=== PATIENT | female | born 1960 | race Caucasian/White ===

== ENCOUNTER → 2016-10-15 | Outpatient (CLI) | payer OTHER ==
[~2016-10-15] MED LIST: ALL180 PO; BUPR150T7 PO; CALC500T83 PO; CARB200T PO; IBUP-1050 PO; LEVO150T9 PO; PARO1TAB29 PO; SIMV20TA5 PO; TGR200 PO
--- NOTE | 2016-10-16 08:15 | MAMMOGRAPHY REPORT ---
BILATERAL DIGITAL SCREENING MAMMOGRAM TOMOSYNTHESIS WITH CAD: 10/15/2016 CLINICAL HISTORY: Routine screening. Patient has no complaints. TECHNIQUE: Breast tomosynthesis in addition to standard 2D mammography was performed. Current study was also evaluated with a Computer Aided Detection (CAD) system. COMPARISON: Comparison is made to exams dated: 10/15/2015 mammogram, 10/10/2014 mammogram, 04/13/2013 ma mmogram, 04/12/2012 mammogram, 04/09/2011 mammogram, and 04/08/2010 mammogram - [facility] enter. BREAST COMPOSITION: There are scattered areas of fibroglandular density in both breasts. FINDINGS: The parenchymal pattern is unchanged. No developing mass, architectural distortion or clu ster of suspicious microcalcifications is seen in either breast. IMPRESSION: ACR BI-RADS CATEGORY 2: BENIGN There is no mammographic evidence of malignancy. A 1 year screening mammogram is recommended. The p atient will receive written notification of the results. Approximately 10% of breast cancers are not detected with mammography. A negative mammographic repor t should not delay biopsy if a clinically suggestive mass is present. Tara Ashton M.D. ay/:10/15/2016 17:18:11 Bus Info Consultant: Barbra DIA(Nathan)(Juan J), [facility] letter sent: Normal 1/2 BI-RADS Code: ACR BI-RADS Category 2: Benign
== END | disposition home or self-care (01) ==
LOC: C.MAMM 15:42
PROVIDERS: ATTEND Family Medicine
DX: Z12.31 Encounter for screening mammogram for malignant neoplasm of breast (principal)

== ENCOUNTER → 2017-10-05 | Outpatient (CLI) | payer OTHER ==
[2017-10-05 17:31] LABS: ALBUMIN 3.8 gm/dl (3.4-5.0); ALT/SGPT 23 U/L (12-78); AST/SGOT 17 U/L (15-37); BLOOD UREA NITROGEN 9 mg/dl (7-18); CARBON DIOXIDE 30 mmol/L (21-32); CREATININE 0.81 mg/dl (0.60-1.20); GLUCOSE 89 mg/dl (70-99); POTASSIUM 3.7 mmol/L (3.5-5.1); SODIUM 135 mmol/L (136-145)
[2017-10-05 17:42] LABS: ALKALINE PHOSPHATASE 107 U/L (45-117); TOTAL PROTEIN 7.3 gm/dl (6.4-8.2)
[2017-10-05 17:57] LABS: T3 FREE 2.37 pg/ml (2.30-4.20)
== END | disposition home or self-care (01) ==
LOC: C.LAB1850 16:36
PROVIDERS: ATTEND Internal Medicine Endocrinology, Diabetes & Metabolism
DX: M81.0 Age-related osteoporosis without current pathological fracture (principal); R94.6 Abnormal results of thyroid function studies; K90.0 Celiac disease

== ENCOUNTER → 2017-10-19 | Outpatient (CLI) | payer OTHER ==
--- NOTE | 2017-10-20 15:05 | MAMMOGRAPHY REPORT ---
BILATERAL DIGITAL SCREENING MAMMOGRAM TOMOSYNTHESIS WITH CAD: 10/19/2017 CLINICAL HISTORY: Routine screening. Patient has no complaints. TECHNIQUE: Breast tomosynthesis in addition to standard 2D mammography was performed. Current study was also evaluated with a Computer Aided Detection (CAD) system. COMPARISON: Comparison is made to exams dated: 10/15/2016 mammogram, 10/15/2015 mammogram, 10/10/2014 karis mogram, 04/13/2013 mammogram, 04/12/2012 mammogram, and 04/14/2011 mammogram - [facility] ter. BREAST COMPOSITION: There are scattered areas of fibroglandular density in both breasts. FINDINGS: The parenchymal pattern is unchanged. No developing mass, architectural distortion or clus ter of suspicious microcalcifications is seen in either breast. IMPRESSION: ACR BI-RADS CATEGORY 2: BENIGN There is no mammographic evidence of malignancy. A 1 year screening mammogram is recommended. The pa tient will receive written notification of the results. Approximately 10% of breast cancers are not detected with mammography. A negative mammographic report should not delay biopsy if a clinically suggestive mass is present. Tara Ashton M.D. ay/:10/19/2017 16:17:34 Underwriting Technician: Lucy DIA(Nathan)(Juan J)(BD), [facility] letter sent: Normal 1/2 BI-RADS Code: ACR BI-RADS Category 2: Benign
== END | disposition home or self-care (01) ==
LOC: C.MAMM 15:52
PROVIDERS: ATTEND Family Medicine
DX: Z12.31 Encounter for screening mammogram for malignant neoplasm of breast (principal)

== ENCOUNTER 2022-03-14 06:19 | Inpatient (IN) ==
[2022-03-14] MEDS ORDERED: FAMOTIDINE 20MG IV PUSH 20 MG/5 ML SYR IV STA (06:48)
[2022-03-14] MEDS ORDERED: SODIUM CHLORIDE 0.9% 1000ML 1,000 ML IV ONE (06:48)
[2022-03-14] MEDS ORDERED: ONDANSETRON INJ 2 MG/ML 2 ML VIAL IV STA (06:48)
[2022-03-14 07:20] LABS: Basophils # (auto) 0.03 K/uL (0-0.2); Basophils % (auto) 0.4 %; Eosinophils # (auto) 0.07 K/uL (0-0.50); Eosinophils % (auto) 0.8 %; Hematocrit (blood only) 37.9 % (34.1-44.9); Hemoglobin 14.1 g/dl (12.0-16.0); Immature Granulocytes # (auto) 0.03 K/uL (0.00-0.02); Immature Granulocytes % (auto) 0.4 %; Lymphocytes # (auto) 1.78 K/uL (1.2-3.4); Lymphocytes % (auto) 21.6 %; Mean Corpuscular Hemoglobin 33.7 pg (25.0-34.0); Mean Corpuscular Hgb Conc 37.2 g/dL (32.0-36.0); Mean Corpuscular Volume 90.5 fL (80.0-100.0); Mean Platelet Volume 9.3 fL (9.4-12.3); Monocytes # (auto) 0.72 K/uL (0.24-0.82); Monocytes % (auto) 8.7 %; Neutrophils # (auto) 5.61 K/uL (1.4-6.5); Neutrophils % (auto) 68.1 %; Platelet Count 319 K/uL (130-400); RDW Coefficient of Variation 11.7 % (11.5-14.5); RDW Standard Deviation 38.5 fL (36.4-46.3); Red Blood Count 4.19 M/uL (3.93-5.22); White Blood Count 8.24 K/ul (4.8-10.8)
[2022-03-14 07:41] LABS: Albumin Level 4.3 gm/dl (3.4-5.0); BUN Creatinine Ratio 4.3 (10-20); Bilirubin Direct 0.1 mg/dl (0-0.2); Bilirubin,Total 0.5 mg/dl (0.2-1.0); Est GFR (African American) 108.1 ml/min; Est GFR (Non-African American) 93.3 ml/min; Globulin 2.2 gm/dl (2.5-4.0); Magnesium 1.7 mg/dl (1.7-2.4); Phosphorus 2.4 mg/dl (2.5-4.9); Potassium 2.8 mmol/L (3.5-5.1); Total Protein 6.5 gm/dl (6.0-8.3)
[2022-03-14] MEDS: POTASSIUM CHLORIDE / WTR 10 MEQ/100 ML PLCT IV SCH ×4 (09:08→19:47)
--- NOTE | 2022-03-14 09:12 | XRay Report ---
XR chest 1V portable HISTORY: feverish COMPARISON: Chest 01/23/2022. FINDINGS: The lungs are clear. Cardiac silhouette is normal in size. No pleural effusions. No pneumot horax. Old, healed right lateral rib fractures. IMPRESSION: No acute process. ACT 112: Negative or not required by law. Electronically signed by: Deepak Fraser M.D. 03/14/2022 9:11 AM
--- NOTE | 2022-03-14 09:15 | Emergency Department Note ---
Impression & Plan Hyponatremia, Hypokalemia, History of COVID-19, Weakness, Nausea ED Provider Note NAME: JOSEFA BAILEY AGE: 61 SEX: F ARRIVES VIA: Walk-In INFORMANT: Patient ED PROVIDER(S): Valerio Hair MD CHIEF COMPLAINT: Nausea, weakness PLAN: Disposition: Admit MEDICAL DECISION MAKING: The patient is a pleasant 61-year-old woman with a past medical history of daily smoking, COVID-19 infection in January 2022, GERD, hyperlipidemia presents to the emergency department accompanied by her for evaluation of generalized weakness, body aches and nausea that she reports has been ongoing since her COVID-19 diagnosis in January. She reports she had a telehealth with her primary care doctor last week and was given Augmentin for suspicion of sinus infection related to her symptoms. She reports no improvement since starting this. She denies any recent fevers. She reports some sinus congestion but denies cough. She has any chest pain or shortness of breath. She reports she has had poor oral intake and not eating and drinking much at all. On arrival the patient is fatigued appearing but no acute distress, afebrile with stable vital signs. She appears clinically dry. She has no focal neurologic deficits. CXR negative for acute cardiopulmonary process. WBC, H/H and platelets within normal limits. Chemistry without metabolic acidosis. Sodium is low at 124 with glucose of 123. Potassium 2.8 with repletion provided. LFTs with AST 61 and otherwise unremarkable. Lipase within normal limits. Procalcitonin is undetectable. TSH within normal limits. Findings were reviewed with the patient and given her symptomatic hyponatremia Karen kalemia she did agree with plan for admission for further management. Case was discussed with Gail Morales [facility] PAC, with Dr. Chaidez, [facility] hospitalist who will evaluate the patient for admission. Triage Nursing notes reviewed and agree them. Prior medical records reviewed Vital Signs: reviewed and remarkable for no significant abnormalities Differential diagnosis: Infection, dehydration, metabolic abnormality, hypo/hyperglycemia, electrolyte disturbance, anemia, hypoxia, cardiac sources, intracerebral event, toxicologic, neurologic, as well as other pathologies. ER treatment provided: See below. Diagnostics interpreted by me: Cardiac Monitoring: An order for continuous cardiac monitoring was placed and demonstrated normal sinus rhythm, 72 bpm, no ectopy Laboratory studies: See below Imaging studies: See below Consultation(s): Case was discussed with Gail Morales, [facility] PAC, with Dr. Chaidez, [facility] hospitalist. HPI: The patient is a pleasant 61-year-old woman with a past medical history of daily smoking, COVID-19 infection in January 2022, GERD, hyperlipidemia presents to the emergency department accompanied by her for evaluation of generalized weakness, body aches and nausea that she reports has been ongoing since her COVID-19 diagnosis in January. She reports she had a telehealth with her primary care doctor last week and was given Augmentin for suspicion of sinus infection related to her symptoms. She reports no improvement since starting this. She denies any recent fevers. She reports some sinus congestion but denies cough. She has any chest pain or shortness of breath. She reports she has had poor oral intake and not eating and drinking much at all. ROS: See above HPI for pertinent positives & negatives. A total of 10 systems reviewed and were otherwise negative. VITALS:See Below PHYSICAL EXAMINATION: GENERAL: Awake, alert, fatigued-appearing, in no distress HENT: Normocephalic, atraumatic. Boggy nasal turbinates. Oropharynx with dry mucous membranes and otherwise unremarkable. EYES: Normal conjunctiva. Sclera non-icteric. NECK: Supple. No nuchal rigidity. FROM. No JVD. RESPIRATORY: Clear to auscultation. CARDIAC: Regular rate, normal rhythm. Extremities warm and well perfused. Pulses equal. ABDOMEN: Soft, non-distended. No tenderness to palpation. No rebound or gua rding. No masses. RECTAL: Deferred. MUSCULOSKELETAL: Chest examination reveals no tenderness. The back is symmetrical on inspection without obvious abnormality. There is no CVA tenderness to palpation. No joint edema. LOWER EXTREMITIES: Calves are equal size bilaterally and non-tender. No edema. No discoloration. NEURO: Normal sensorium. No sensory or motor deficits noted. SKIN: No rash or jaundice noted. Valerio Hair MD Past Med/Surg History Medical History Adult celiac disease Bipolar disorder Celiac disease GERD (gastroesophageal reflux disease) GERD (gastroesophageal reflux disease) HLD (hyperlipidemia) Hypokalemia Hyponatremia Hypothyroidism Osteoporosis Secondary hyperparathyroidism Vitamin B12 deficiency Vitamin D deficiency Weakness Weakness Family History Other Family history non-contributory Social History Smoking Status: Current every day smoker Tobacco Type: Cigarettes Second Hand Exposure: No; Do You Dip or Chew Tobacco: No; Tobacco Cessation Education Requested by Patient: No Hx Alcohol Use: No Hx Substance Use: No Preferred Language: Egyptian Communication Ability: Effective Network Relations Consultant Required: No Beliefs That Will Affect Care: None Current Living Situation: Spouse Other Information That Helps Us Care for You: No Feels Safe at Home: Yes Safety Concerns: Feels Safe At This Time Assistive Devices: Denture - Upper and Glasses Allergies Allergies Allergy/AdvReac Type Severity Reaction Status Date / Time metronidazole Allergy Intermediate RASH Verified 01/18/21 22:09 gluten Allergy Unknown Verified 01/18/21 22:09 Home Meds Home Medications Medication Instructions Recorded Confirmed carbamazepine 200 mg tablet 200 mg PO QAM 03/07/19 03/14/22 fexofenadine 180 mg tablet 180 mg PO DAILY 03/07/19 03/14/22 fluticasone propionate 50 2 sprays intranasal BID PRN 03/07/19 03/14/22 mcg/actuation nasal allergies spray,suspension paroxetine HCl 40 mg tablet 40 mg PO DAILY 03/07/19 03/14/22 simvastatin 20 mg tablet 20 mg PO HS #30 tabs 03/07/19 03/14/22 bupropion HCl 300 mg 24 hr tablet, 300 mg PO DAILY 01/18/21 03/14/22 extended release carbamazepine 200 mg tablet 300 mg PO QPM 01/18/21 03/14/22 levothyroxine 125 mcg tablet 150 mcg PO DAILY 01/18/21 03/14/22 pantoprazole 40 mg tablet,delayed 40 mg PO DAILY 01/18/21 03/14/22 release paroxetine HCl 20 mg tablet 20 mg PO DAILY 01/18/21 03/14/22 Results & Data (ED) Vital Signs Vital Signs - 24 hr 03/14/22 06:30 03/14/22 07:10 03/14/22 09:17 Temperature 36.7 C Temperature Source Temporal Artery Scan Pulse Rate [Finger] 72 78 Respiratory Rate 18 18 18 Respiratory Effort / Characteristics Non-Labored Spontaneous Non-Labored Spontaneous Non-Labored Respiratory Depth Normal Normal Normal Blood Pressure 164/85 H Blood Pressure [Left Arm] 124/84 126/79 Blood Pressure Mean 111 Blood Pressure Mean [Left Arm] 97 94 Pulse Oximetry 100 100 100 Oxygen Delivery Method Room Air Room Air Room Air Sepsis Recent Fever Within 48 Hours No Sepsis New/Unexplained Change in Mental Status N/A Sepsis Action Taken by Nursing No Action Required 03/14/22 10:10 Temperature Temperature Source Pulse Rate [Finger] 71 Respiratory Rate 16 Respiratory Effort / Characteristics Respiratory Depth Normal Blood Pressure Blood Pressure [Left Arm] 121/82 Blood Pressure Mean Blood Pressure Mean [Left Arm] 95 Pulse Oximetry 99 Oxygen Delivery Method Room Air Sepsis Recent Fever Within 48 Hours Sepsis New/Unexplained Change in Mental Status Sepsis Action Taken by Nursing Laboratory Data Attestation: I reviewed the patient's lab results. Result diagrams: 03/14/22 07:03 03/14/22 20:16 Lab Results 03/14/22 03/14/22 03/14/22 Range/Units 07:03 07:03 07:03 WBC 8.24 (4.8-10.8) K/ul RBC 4.19 (3.93-5.22) M/uL Hgb 14.1 (12.0-16.0) g/dl Hct 37.9 (34.1-44.9) % MCV 90.5 (80.0-100.0) fL MCH 33.7 (25.0-34.0) pg MCHC 37.2 H (32.0-36.0) g/dL RDW Std Deviation 38.5 (36.4-46.3) fL RDW Coeff of Karla 11.7 (11.5-14.5) % Plt Count 319 (130-400) K/uL MPV 9.3 L (9.4-12.3) fL Immature Gran % (Auto) 0.4 % Neut % (Auto) 68.1 % Lymph % (Auto) 21.6 % [place] % (Auto) 8.7 % Eos % (Auto) 0.8 % Baso % (Auto) 0.4 % Neut # (Auto) 5.61 (1.4-6.5) K/uL Lymph # (Auto) 1.78 (1.2-3.4) K/uL [place] # (Auto) 0.72 (0.24-0.82) K/uL Eos # (Auto) 0.07 (0-0.50) K/uL Baso # (Auto) 0.03 (0-0.2) K/uL Immature Gran # (Auto) 0.03 H (0.00-0.02) K/uL Sodium 124 L (136-145) mmol/L Potassium 2.8 L (3.5-5.1) mmol/L Chloride 88 L (98-107) mmol/L Carbon Dioxide 25 (21-32) mmol/L Anion Gap 11 (3-11) BUN 3 L (6-23) mg/dl Creatinine 0.69 (0.6-1.2) mg/dl Est Cr Clr Drug Dosing 82.0 ml/min Est GFR ( Amer) 108.1 ml/min Est GFR (Non-Af Amer) 93.3 ml/min BUN/Creatinine Ratio 4.3 L (10-20) Glucose 123 H (70-99(Fasting)) mg/dl Osmolality (280-300) mOsm/kg Calcium 9.0 (8.5-10.1) mg/dl Phosphorus 2.4 L (2.5-4.9) mg/dl Magnesium 1.7 (1.7-2.4) mg/dl Total Bilirubin 0.5 (0.2-1.0) mg/dl Direct Bilirubin 0.1 (0-0.2) mg/dl AST 36 (13-39) U/L ALT 61 H (7-52) U/L Alkaline Phosphatase 75 (34-104) U/L Total Protein 6.5 (6.0-8.3) gm/dl Albumin 4.3 (3.4-5.0) gm/dl Globulin 2.2 L (2.5-4.0) gm/dl Albumin/Globulin Ratio 2.0 (0.9-2) Lipase 18 (11-82) U/L Procalcitonin (0-0.5) ng/ml TSH 2.266 (0.300-4.500) uIu/ml Urine Osmolality (500-800) mOsm/kg Ur Random Sodium mmol/L 03/14/22 03/14/22 03/14/22 Range/Units 07:03 07:03 09:16 WBC (4.8-10.8) K/ul RBC (3.93-5.22) M/uL Hgb (12.0-16.0) g/dl Hct (34.1-44.9) % MCV (80.0-100.0) fL MCH (25.0-34.0) pg MCHC (32.0-36.0) g/dL RDW Std Deviation (36.4-46.3) fL RDW Coeff of Karla (11.5-14.5) % Plt Count (130-400) K/uL MPV (9.4-12.3) fL Immature Gran % (Auto) % Neut % (Auto) % Lymph % (Auto) % [place] % (Auto) % Eos % (Auto) % Baso % (Auto) % Neut # (Auto) (1.4-6.5) K/uL Lymph # (Auto) (1.2-3.4) K/uL [place] # (Auto) (0.24-0.82) K/uL Eos # (Auto) (0-0.50) K/uL Baso # (Auto) (0-0.2) K/uL Immature Gran # (Auto) (0.00-0.02) K/uL Sodium (136-145) mmol/L Potassium (3.5-5.1) mmol/L Chloride (98-107) mmol/L Carbon Dioxide (21-32) mmol/L Anion Gap (3-11) BUN (6-23) mg/dl Creatinine (0.6-1.2) mg/dl Est Cr Clr Drug Dosing ml/min Est GFR ( Amer) ml/min Est GFR (Non-Af Amer) ml/min BUN/Creatinine Ratio (10-20) Glucose (70-99(Fasting)) mg/dl Osmolality 256 L (280-300) mOsm/kg Calcium (8.5-10.1) mg/dl Phosphorus (2.5-4.9) mg/dl Magnesium (1.7-2.4) mg/dl Total Bilirubin (0.2-1.0) mg/dl Direct Bilirubin (0-0.2) mg/dl AST (13-39) U/L ALT (7-52) U/L Alkaline Phosphatase (34-104) U/L Total Protein (6.0-8.3) gm/dl Albumin (3.4-5.0) gm/dl Globulin (2.5-4.0) gm/dl Albumin/Globulin Ratio (0.9-2) Lipase (11-82) U/L Procalcitonin < 0.05 (0-0.5) ng/ml TSH (0.300-4.500) uIu/ml Urine Osmolality 49 L (500-800) mOsm/kg Ur Random Sodium mmol/L 03/14/22 Range/Units 09:16 WBC (4.8-10.8) K/ul RBC (3.93-5.22) M/uL Hgb (12.0-16.0) g/dl Hct (34.1-44.9) % MCV (80.0-100.0) fL MCH (25.0-34.0) pg MCHC (32.0-36.0) g/dL RDW Std Deviation (36.4-46.3) fL RDW Coeff of Karla (11.5-14.5) % Plt Count (130-400) K/uL MPV (9.4-12.3) fL Immature Gran % (Auto) % Neut % (Auto) % Lymph % (Auto) % [place] % (Auto) % Eos % (Auto) % Baso % (Auto) % Neut # (Auto) (1.4-6.5) K/uL Lymph # (Auto) (1.2-3.4) K/uL [place] # (Auto) (0.24-0.82) K/uL Eos # (Auto) (0-0.50) K/uL Baso # (Auto) (0-0.2) K/uL Immature Gran # (Auto) (0.00-0.02) K/uL Sodium (136-145) mmol/L Potassium (3.5-5.1) mmol/L Chloride (98-107) mmol/L Carbon Dioxide (21-32) mmol/L Anion Gap (3-11) BUN (6-23) mg/dl Creatinine (0.6-1.2) mg/dl Est Cr Clr Drug Dosing ml/min Est GFR ( Amer) ml/min Est GFR (Non-Af Amer) ml/min BUN/Creatinine Ratio (10-20) Glucose (70-99(Fasting)) mg/dl Osmolality (280-300) mOsm/kg Calcium (8.5-10.1) mg/dl Phosphorus (2.5-4.9) mg/dl Magnesium (1.7-2.4) mg/dl Total Bilirubin (0.2-1.0) mg/dl Direct Bilirubin (0-0.2) mg/dl AST (13-39) U/L ALT (7-52) U/L Alkaline Phosphatase (34-104) U/L Total Protein (6.0-8.3) gm/dl Albumin (3.4-5.0) gm/dl Globulin (2.5-4.0) gm/dl Albumin/Globulin Ratio (0.9-2) Lipase (11-82) U/L Procalcitonin (0-0.5) ng/ml TSH (0.300-4.500) uIu/ml Urine Osmolality (500-800) mOsm/kg Ur Random Sodium 13 mmol/L Administered Medications Al Hydrox/Mg Hydrox/Simethicone (Aluminum/Magnesium Susp 30 Ml Udc) 15 ml PO Q4H PRN PRN Reason: Dyspepsia Stop: 04/13/22 14:32 Last Admin: 03/14/22 17:44 Dose: 15 ml Documented By: EDD Carbamazepine (Carbamazepine 200 Mg Tablet) 300 mg PO QPM JASMYN Stop: 04/13/22 20:59 Last Admin: 03/14/22 20:55 Dose: 300 mg Documented By: LAT Enoxaparin Sodium (Enoxaparin Inj 40 Mg/0.4 Ml Syr) 40 mg SQ QPM JASMYN Stop: 04/13/22 20:59 Last Admin: 03/14/22 20:53 Dose: 40 mg Documented By: LAT Ondansetron HCl (Ondansetron Inj 2 Mg/Ml 2 Ml Vial) 4 mg IV Q6H PRN PRN Reason: Nausea Stop: 04/13/22 14:32 Last Admin: 03/14/22 15:43 Dose: 4 mg Documented By: EDD Simvastatin (Simvastatin 20 Mg Tab) 20 mg PO HS JASMYN Stop: 04/13/22 20:59 Last Admin: 03/14/22 20:54 Dose: 20 mg Documented By: LAT Discontinued Medications Sodium Chloride (Nss 1000ml) 1,000 mls @ 999 mls/hr IV .Q1H1M ONE Stop: 03/14/22 07:48 Last Infusion: 03/14/22 08:12 Dose: 0 mls/hr Documented By: Admin: 03/14/22 07:03 Dose: 999 mls/hr Documented By: NILTON Famotidine (Pepcid 20mg Iv Push) 20 mg in 5 mls @ 2.5 mls/min IV NOW STA Stop: 03/14/22 06:49 Last Admin: 03/14/22 07:03 Dose: 2.5 mls/min Documented By: NILTON Potassium Chloride (K Jay / Wtr) 10 meq in 100 mls @ 100 mls/hr IV Q1H JASMYN; Protocol Stop: 03/14/22 10:59 Last Infusion: 03/14/22 11:20 Dose: 0 mls/hr Documented By: Admin: 03/14/22 10:10 Dose: 100 mls/hr Documented By: Infusion: 03/14/22 10:08 Dose: 100 mls/hr Documented By: Admin: 03/14/22 09:08 Dose: 100 mls/hr Documented By: NILTON Magnesium Sulfate/Dextrose (Magnesium Sulfate / D5w) 1 gm in 100 mls @ 50 mls/hr IV ONE ONE Stop: 03/14/22 16:32 Last Infusion: 03/14/22 17:46 Dose: 0 mls/hr Documented By: Admin: 03/14/22 15:42 Dose: 50 mls/hr Documented By: EDD Potassium Chloride (K Jay / Wtr) 10 meq in 100 mls @ 100 mls/hr IV ONE ONE Stop: 03/14/22 15:32 Last Infusion: 03/14/22 17:46 Dose: 0 mls/hr Documented By: Admin: 03/14/22 15:41 Dose: 100 mls/hr Documented By: EDD Potassium Chloride (K Jay / Wtr) 10 meq in 100 mls @ 100 mls/hr IV Q1H JASMYN Stop: 03/14/22 20:14 Last Infusion: 03/14/22 20:58 Dose: 0 mls/hr Documented By: Admin: 03/14/22 19:47 Dose: 100 mls/hr Documented By: Infusion: 03/14/22 18:45 Dose: 100 mls/hr Documented By: Admin: 03/14/22 17:45 Dose: 100 mls/hr Documented By: Infusion: 03/14/22 17:45 Dose: 100 mls/hr Documented By: Admin: 03/14/22 17:45 Dose: 100 mls/hr Documented By: EDD Ondansetron HCl (Ondansetron Inj 2 Mg/Ml 2 Ml Vial) 4 mg IV NOW STA Stop: 03/14/22 06:49 Last Admin: 03/14/22 07:03 Dose: 4 mg Documented By: NILTON Potassium Chloride (Potassium Chloride Crtab 20 Meq Tabcr) 40 meq PO NOW STA Stop: 03/14/22 14:34 Last Admin: 03/14/22 15:41 Dose: Not Given Documented By: EDD Imaging Data Radiologist's Impression: Chest X-Ray 03/14/22 07:12 XR chest 1V portable HISTORY: feverish COMPARISON: Chest 01/23/2022. FINDINGS: The lungs are clear. Cardiac silhouette is normal in size. No pleural effusions. No pneumothorax. Old, healed right lateral rib fractures. IMPRESSION: No acute process. ACT 112: Negative or not required by law. Electronically signed by: Deepak Fraser M.D. 03/14/2022 9:11 AM Discharge Plan Visit Data Chief Complaint: Nausea Stated Complaint: NAUSEA,NOT EATING,TIRED ED Provider: Valerio Hair Discharge Problem: Hyponatremia, Hypokalemia, History of COVID-19, Weakness, Nausea Patient Disposition: Admitted As Inpatient Discharge Instructions Interventions: ED Discharge Assessment Last Done: 03/14/22 13:37
--- NOTE | 2022-03-14 10:08 | History & Physical Report ---
Date of Service March 14, 2022 Assessment & Plan (1) Hyponatremia: (2) Hypokalemia: (3) Weakness: (4) Weakness: (5) Celiac disease: (6) HLD (hyperlipidemia): (7) GERD (gastroesophageal reflux disease): Plan Pt seen in ED with fatigue, weakness, nausea that has been occurring over the past month and a half. Admit for electrolyte replacement, fluid restriction and monitoring. Hyponatremia: Weakness: Likely related to prolonged covid fatigue Pt has been increasingly thirsty and drinking a lot of water Na+ 124; will place on fluid restriction 1200mL Q6 BMP until hyponatremia resolved Consider Nephro consult if no signs of resolution Hypokalemia: K+ 2.8; received 2 K+ riders in ED. KCL 40mEq PO + 1 additional K+ rider Recheck BMP Anxiety and depression: Bipolar disorder: Continue bupropion, carbamazepine, paroxitine Celiac Disease: diagnosed years ago by colonoscopy gluten free diet HLD: Stable; continue simvastatin Hypothyroidism: Stable; continue Synthroid GERD: Stable; Continue pantoprazole Disposition: PCP: Dr. Marcelo Code: Full Code VTE Prophylaxis: Lovenox SQ I personally was able to review all current laboratory work and diagnostic images obtained in the ED. Additionally, I was able to review the patients past medication reconciliation and history with direct visualization in the patients chart. I saw this patient in collaboration with Dr. Chaidez. History of Present Illness Chief Complaint: weakness Primary Care Provider: Karla Kearney PA-C Ms. Gloria Stein is a 61 y/o female that presented to the [facility] with increased weakness, nausea and fatigue that has been occurring over the past month and a half. She had covid-19 at the end of January and her symptoms have persisted since then. Patient was seen by her PCP for a consistent sinus pressure; she was started on Augmentin and is currently still taking it. Patient has been drinking a lot of water. Patient reports that her water is clear; patient has some dysuria. UA completed. Patient hyponatremic, hypokalemic. CXR negative. Patient smokes nearly 1/2 ppd of cigarettes but hasnt been smoking since shes not feeling well. Patient denies alcohol or recreational drug use. Additional PMH includes: celiac disease, GERD, HLD, hypothyroidism, anxiety, depression, bipolar disorder. Patient denies MUKHERJEE, dizziness, fever, SOB, cough, CP, palpitations, vomiting, diarrhea. Patient will be admitted under hospitalist service for further evaluation and management of her condition. Please see A/P for further details. Allergies Allergy/AdvReac Type Severity Reaction Status Date / Time metronidazole Allergy Intermediate RASH Verified 01/18/21 22:09 gluten Allergy Unknown Verified 01/18/21 22:09 Home Medications Medication Instructions Recorded Confirmed Type carbamazepine 200 mg tablet 200 mg PO QAM 03/07/19 03/14/22 History fexofenadine 180 mg tablet 180 mg PO DAILY 03/07/19 03/14/22 History fluticasone propionate 50 2 sprays intranasal BID PRN 03/07/19 03/14/22 History mcg/actuation nasal allergies spray,suspension paroxetine HCl 40 mg tablet 40 mg PO DAILY 03/07/19 03/14/22 History simvastatin 20 mg tablet 20 mg PO HS #30 tabs 03/07/19 03/14/22 History bupropion HCl 300 mg 24 hr tablet, 300 mg PO DAILY 01/18/21 03/14/22 History extended release carbamazepine 200 mg tablet 300 mg PO QPM 01/18/21 03/14/22 History levothyroxine 125 mcg tablet 150 mcg PO DAILY 01/18/21 03/14/22 History pantoprazole 40 mg tablet,delayed 40 mg PO DAILY 01/18/21 03/14/22 History release paroxetine HCl 20 mg tablet 20 mg PO DAILY 01/18/21 03/14/22 History Past Med/Surg History Medical History (Updated 03/14/22 @ 11:15 by ELIDIA Ramirez) Adult celiac disease Bipolar disorder Celiac disease GERD (gastroesophageal reflux disease) GERD (gastroesophageal reflux disease) HLD (hyperlipidemia) Hypokalemia Hyponatremia Hypothyroidism Osteoporosis Secondary hyperparathyroidism Vitamin B12 deficiency Vitamin D deficiency Weakness Weakness Family History Other Family history non-contributory Social History Smoking Status: Current some day smoker Tobacco Type: Cigarettes Preferred Language: Belgian Feels Safe at Home: Yes Review of Systems Review of Systems: Neuro: (-) Falls, trauma, slurred speech HEENT: (-) MUKHERJEE, dizziness, dysphagia, visual or auditory changes CV: (-) CP, palpitations, swelling Resp: (-) SOB GI: (-) appetite changes, (+) nausea V/D, bowel changes : (+) polyuria Skin: (-) rashes Psych: (-) anxiety, depression Physical Exam Physical Exam: Neuro: AAOx4, PERRLA, no aphagia, memory changes HEENT: head normocephalic, moist mucus membranes CV: S1/S2, (-) M/G/R, (-) edema, cap refill < 3 seconds Resp: Lungs CTA in all kathleen. On RA GI: Abdomen S/NT/ND, Ax4 bowel sounds, (-) CVA tenderness Musculoskeletal: 5/5 B/L UE strength, 5/5 B/L LE strength. No gait disturbance Skin: (-) rashes , (-) erythema. Psych: euthymic mood Results & Data Results & Data ([facility]) Vital Signs (Past 12 Hours) Vital Signs Temp Pulse Resp BP BP Pulse Ox O2 Del Method 03/14/22 09:17 78 18 126/79 100 Room Air 03/14/22 07:10 72 18 124/84 100 Room Air 03/14/22 06:30 36.7 C 18 164/85 H 100 Room Air Laboratory Results Short CBC 03/14/22 Range/Units 07:03 WBC 8.24 (4.8-10.8) K/ul Hgb 14.1 (12.0-16.0) g/dl Hct 37.9 (34.1-44.9) % Plt Count 319 (130-400) K/uL BMP 03/14/22 07:03 Sodium 124 L Potassium 2.8 L Chloride 88 L Carbon Dioxide 25 BUN 3 L Creatinine 0.69 Glucose 123 H Calcium 9.0 Liver Function 03/14/22 Range/Units 07:03 Total Bilirubin 0.5 (0.2-1.0) mg/dl Direct Bilirubin 0.1 (0-0.2) mg/dl AST 36 (13-39) U/L ALT 61 H (7-52) U/L Alkaline Phosphatase 75 (34-104) U/L Albumin 4.3 (3.4-5.0) gm/dl Diagnostic Findings Chest X-Ray 03/14/22 07:12 XR chest 1V portable HISTORY: feverish COMPARISON: Chest 01/23/2022. FINDINGS: The lungs are clear. Cardiac silhouette is normal in size. No pleural effusions. No pneumothorax. Old, healed right lateral rib fractures. IMPRESSION: No acute process. ACT 112: Negative or not required by law. Electronically signed by: Deepak Fraser M.D. 03/14/2022 9:11 AM ECG Additional Comments: Vent. Rate : 064 BPM Atrial Rate : 064 BPM P-R Int : 166 ms QRS Dur : 086 ms QT Int : 432 ms QTc Int : 445 ms Normal sinus rhythm Low voltage QRS Incomplete right bundle branch block Borderline ECG No previous ECGs available Code Status & VTE Plan VTE Prophylaxis Plan VTE Prophylaxis will be ordered: Yes Supervising Physician Co-Signing Physician Notes I evaluated and examined the patient with the CHANDA and agree with her assessment and plan. Patient suffered from COVID-19 infection in January 2020 with presentation as nausea and fatigue. Since then, she continued to feel extremely weak with decreased oral intake due to nausea. She has not had good appetite and diet during this time. Her diet was limited to toast and water. She drank a lot of water to avoid being lightheaded and dizzy. She was recently treated by her primary care physician with Augmentin for possible sinusitis and she is in the middle of the treatment. She denies any fever, chills, respiratory symptoms, chest pain, abdominal pain, diarrhea. She also complains of slight dysuria. She drinks a lot of water and has polyuria as well. Upon evaluation in the ER, she is found to have sodium of 124 and potassium of 2.8, decreased urine osmolality. No leukocytosis, abnormal kidney function was noticed. Examination is unremarkable. In assessment and plan, patient will be admitted for: 1. Hyponatremia: Likely due to polydipsia. Admit to telemetry for closer monitoring. Patient received a 500 mL bolus of normal saline. We will hold any further IV fluid. Placed the patient on free water intake of 1200 mL/day Check BMP every 6 hours Will consider consulting nephrology if sodium level does not improve with above- mentioned approach 2. hypokalemia, hypomagnesemia Due to poor oral intake. Will replace and recheck the levels 3. Celiac disease Continue gluten-free diet 4. Hypothyroidism Continue Synthroid. TSH is normal 5. We will continue current medications for chronic medical problems.
[2022-03-14] MEDS ORDERED: MAGNESIUM SULFATE / D5W 1 GM/100 ML BAG IV ONE (14:33)
[2022-03-14] MEDS ORDERED: POTASSIUM CHLORIDE CRTAB 20 MEQ TABCR PO STA (14:33)
[2022-03-14] MEDS ORDERED: POTASSIUM CHLORIDE / WTR 10 MEQ/100 ML PLCT IV ONE (14:33)
[2022-03-14] MEDS ORDERED: ONDANSETRON INJ 2 MG/ML 2 ML VIAL IV PRN (14:33)
[2022-03-14] MEDS ORDERED: ACETAMINOPHEN 325 MG TAB PO PRN (14:33)
[2022-03-14] MEDS ORDERED: POLYETHYLENE (MIRALAX) 17 GM PACK PO PRN (14:33)
[2022-03-14] MEDS ORDERED: MAGNESIUM HYDROXIDE SUSP 30 ML UDC PO PRN (14:33)
[2022-03-14 15:32] LABS: BUN Creatinine Ratio 5.8 (10-20); Calcium 8.7 mg/dl (8.5-10.1); Est GFR (African American) 108.1 ml/min; Est GFR (Non-African American) 93.3 ml/min; Potassium 3.1 mmol/L (3.5-5.1)
[2022-03-14] MEDS: ONDANSETRON INJ 2 MG/ML 2 ML VIAL IV PRN (15:43)
[2022-03-14] MEDS: ALUMINUM/MAGNESIUM SUSP 30 ML UDC PO PRN (17:44)
[2022-03-14 20:43] LABS: BUN Creatinine Ratio 4.3 (10-20); Calcium 8.8 mg/dl (8.5-10.1); Creatinine Clr Calc Pharmacy 60.1 ml/min; Est GFR (African American) 75.4 ml/min; Potassium 3.7 mmol/L (3.5-5.1)
[2022-03-14] MEDS: ENOXAPARIN INJ 40 MG/0.4 ML SYR SQ SCH (20:53)
[2022-03-14] MEDS: SIMVASTATIN 20 MG TAB PO SCH (20:54)
[2022-03-14] MEDS: carBAMazepine 200 MG TABLET PO SCH (20:55)
[2022-03-15 03:07] LABS: BUN Creatinine Ratio 6.8 (10-20); Calcium 9.1 mg/dl (8.5-10.1); Creatinine Clr Calc Pharmacy 76.3 ml/min; Est GFR (African American) 100.6 ml/min; Est GFR (Non-African American) 86.8 ml/min; Potassium 3.7 mmol/L (3.5-5.1)
[2022-03-15] MEDS: LEVOTHYROXINE SODIUM 150 MCG TABLET PO SCH (05:26)
[2022-03-15] MEDS: ONDANSETRON INJ 2 MG/ML 2 ML VIAL IV PRN ×2 (08:17→15:46)
[2022-03-15] MEDS: PARoxetine HCL 20 MG TAB PO SCH (08:18)
[2022-03-15] MEDS: buPROPion XL 300 MG TABCR PO SCH (08:18)
[2022-03-15] MEDS: carBAMazepine 200 MG TABLET PO SCH ×2 (08:18→19:59)
[2022-03-15] MEDS: PANTOprazole 40 MG TAB PO SCH (08:18)
[2022-03-15] MEDS: FEXOFENADINE HCL 180 MG TAB PO SCH (08:18)
[2022-03-15 08:36] LABS: Hematocrit (blood only) 35.8 % (34.1-44.9); Hemoglobin 12.9 g/dl (12.0-16.0); Mean Corpuscular Hemoglobin 33.7 pg (25.0-34.0); Mean Corpuscular Volume 93.5 fL (80.0-100.0); Mean Platelet Volume 9.8 fL (9.4-12.3); Platelet Count 304 K/uL (130-400); RDW Coefficient of Variation 12.2 % (11.5-14.5); RDW Standard Deviation 41.5 fL (36.4-46.3); Red Blood Count 3.83 M/uL (3.93-5.22); White Blood Count 7.47 K/ul (4.8-10.8)
[2022-03-15 08:57] LABS: Phosphorus 2.2 mg/dl (2.5-4.9)
[2022-03-15] MEDS ORDERED: PARoxetine HCL 20 MG TAB PO SCH (09:00)
[2022-03-15 09:14] LABS: BUN Creatinine Ratio 7.9 (10-20); Calcium 8.7 mg/dl (8.5-10.1); Creatinine Clr Calc Pharmacy 89.4 ml/min; Est GFR (African American) 111.4 ml/min; Est GFR (Non-African American) 96.1 ml/min; Potassium 3.6 mmol/L (3.5-5.1)
[2022-03-15] MEDS: FLUTICASONE PROPIONATE NA SPR 16 GM BTL PRN (09:15)
[2022-03-15 09:52] LABS: Magnesium 2.1 mg/dl (1.7-2.4)
[2022-03-15] MEDS: ALUMINUM/MAGNESIUM SUSP 30 ML UDC PO PRN (12:56)
[2022-03-15 13:44] LABS: BUN Creatinine Ratio 10.9 (10-20); Calcium 8.9 mg/dl (8.5-10.1); Est GFR (African American) 110.8 ml/min; Est GFR (Non-African American) 95.6 ml/min; Potassium 3.5 mmol/L (3.5-5.1)
[2022-03-15 15:07] LABS: Appearance Urine Clear (Clear); Bacteria Urine Automated 1+ (Negative); Bilirubin Urine Negative (Negative); Blood Urine Trace (Negative); Color Urine Dark Yellow; Epithelial Cell Urine Auto >30 /lpf (0-5); Glucose Urine UA Negative (Negative); Ketones Urine 3+ (Negative); Leukocyte Esterase Urine Trace (Negative); Nitrite Urine Negative (Negative); Protein Urine Trace (Negative); RBC Urine Automated 0-4 /hpf (0-4); Urobilinogen Urine Negative (Negative); pH Urine 6.5 (4.5-7.5)
--- NOTE | 2022-03-15 16:55 | Hospitalist Progress Note ---
Date of Service March 15, 2022 Assessment & Plan (1) Hyponatremia: (2) Hypokalemia: (3) Weakness: (4) Celiac disease: (5) HLD (hyperlipidemia): (6) GERD (gastroesophageal reflux disease): Plan per admitting service notes with addendum: Pt seen in ED with fatigue, weakness, nausea that has been occurring over the past month and a half. Admit for electrolyte replacement, fluid restriction and monitoring. Hyponatremia: Weakness: Likely related to prolonged covid fatigue Pt has been increasingly thirsty and drinking a lot of water Na+ 124; will place on fluid restriction 1200mL Q6 BMP until hyponatremia resolved Consider Nephro consult if no signs of resolution 03/15 Sodium improved from 124, now 133 Continue fluid restriction 1.5 mL/day Continue to monitor sodium Hypokalemia: K+ 2.8; received 2 K+ riders in ED. KCL 40mEq PO + 1 additional K+ rider Recheck BMP 03/15 Potassium 3.5 Anxiety and depression: Bipolar disorder: Mood stable Continue bupropion, carbamazepine, paroxetine Celiac Disease: diagnosed years ago by colonoscopy gluten free diet HLD: Stable; continue simvastatin Hypothyroidism: Stable; continue Synthroid GERD: Stable; Continue pantoprazole Disposition: PCP: Dr. Marcelo Code: Full Code VTE Prophylaxis: Lovenox SQ plan of care discussed with patient in detail and at length all questions answered she is understanding, agreeable, comfortable with the plan of care Admission and Anticipated Discharge Date Admission Date: March 14, 2022 Subjective Follow-up for hyponatremia, polydipsia, poor oral intake, etc. Seen sitting up in bed comfortable, not in distress States that she feels improved compared to yesterday Weakness improving, appetite improving No nausea today Reports painful tongue no chest pain, dyspnea, palpitations, dizziness No cough, shortness of breath No other symptoms Review of Systems Review of Systems: all noted and negative except for above Physical Exam Physical Exam: General- oriented x 3, not in distress, speaks in sentences with no effort or accessory muscle use Head- atraumatic Eyes- PERRL, EOMI, anicteric ENT- oropharynx clear Tongue-mild hyperemia, no oral thrush,no bleeding no open wounds Neck- supple, no JVD, no adenopathy, no thyromegaly; carotids +2/2, no bruits appreciated Lungs- clear to auscultation bilaterally, no rales/wheezes Heart- normal rate, regular rhythm; no murmur, no gallop, no rub appreciated Abdomen- normal bowel sounds, nondistended, soft, nontender, no masses or hepatosplenomegaly Extremities- no pretibial edema, no calf tenderness; peripheral pulses intact Neuro- alert, oriented x 3; CN 2-12 grossly intact; motor 5/5 bilaterally;sensation 100% on all extremities; no other gross focal neurologic deficits Skin- warm & dry Results & Data Results & Data ([facility]) Vital Signs (Past 12 Hours) Vital Signs Temp Pulse Pulse Resp BP Pulse Ox O2 Del Method 03/15/22 15:46 36.7 C 72 21 103/53 L 98 Room Air 03/15/22 14:00 64 03/15/22 11:54 36.3 C L 70 19 104/69 96 Room Air 03/15/22 08:00 72 03/15/22 08:00 Room Air 03/15/22 08:36 36.8 C 73 20 144/67 H 98 Room Air all noted and reviewed including below
[2022-03-15] MEDS: NYSTATIN SUSP 500,000 U/5 ML UDC PO SCH ×2 (18:45→19:59)
[2022-03-15] MEDS: SIMVASTATIN 20 MG TAB PO SCH (19:59)
[2022-03-15] MEDS: ENOXAPARIN INJ 40 MG/0.4 ML SYR SQ SCH (19:59)
[2022-03-16] MEDS: LEVOTHYROXINE SODIUM 150 MCG TABLET PO SCH (05:13)
[2022-03-16 07:22] LABS: Basophils # (auto) 0.06 K/uL (0-0.2); Basophils % (auto) 0.9 %; Eosinophils # (auto) 0.11 K/uL (0-0.50); Eosinophils % (auto) 1.7 %; Hematocrit (blood only) 37.1 % (34.1-44.9); Hemoglobin 13.4 g/dl (12.0-16.0); Immature Granulocytes # (auto) 0.01 K/uL (0.00-0.02); Immature Granulocytes % (auto) 0.2 %; Lymphocytes # (auto) 1.93 K/uL (1.2-3.4); Lymphocytes % (auto) 29.2 %; Mean Corpuscular Hemoglobin 33.4 pg (25.0-34.0); Mean Corpuscular Hgb Conc 36.1 g/dL (32.0-36.0); Mean Corpuscular Volume 92.5 fL (80.0-100.0); Mean Platelet Volume 9.6 fL (9.4-12.3); Monocytes # (auto) 0.63 K/uL (0.24-0.82); Monocytes % (auto) 9.5 %; Neutrophils # (auto) 3.87 K/uL (1.4-6.5); Neutrophils % (auto) 58.5 %; Platelet Count 310 K/uL (130-400); RDW Coefficient of Variation 11.8 % (11.5-14.5); Red Blood Count 4.01 M/uL (3.93-5.22); White Blood Count 6.61 K/ul (4.8-10.8)
[2022-03-16 07:53] LABS: BUN Creatinine Ratio 11.9 (10-20); Creatinine Clr Calc Pharmacy 84.3 ml/min; Est GFR (African American) 109.2 ml/min; Est GFR (Non-African American) 94.2 ml/min; Potassium 3.5 mmol/L (3.5-5.1)
[2022-03-16 08:15] LABS: Folate (Folic Acid) 5.21 ng/ml (>5.38)
[2022-03-16] MEDS ORDERED: FOLIC ACID 1 MG TAB PO SCH (09:15)
[2022-03-16] MEDS ORDERED: cefTRIAXone SODIUM 2,000 MG in DEXTROSE 5% 50 ML IV SCH (09:30)
[2022-03-16] MEDS: ONDANSETRON INJ 2 MG/ML 2 ML VIAL IV PRN (10:09)
[2022-03-16] MEDS: FLUTICASONE PROPIONATE NA SPR 16 GM BTL PRN (10:09)
[2022-03-16] MEDS: carBAMazepine 200 MG TABLET PO SCH (10:10)
[2022-03-16] MEDS: PARoxetine HCL 20 MG TAB PO SCH (10:10)
[2022-03-16] MEDS: FEXOFENADINE HCL 180 MG TAB PO SCH (10:10)
[2022-03-16] MEDS: NYSTATIN SUSP 500,000 U/5 ML UDC PO SCH ×2 (10:10→13:20)
[2022-03-16] MEDS: buPROPion XL 300 MG TABCR PO SCH (10:10)
[2022-03-16] MEDS: PANTOprazole 40 MG TAB PO SCH (10:10)
[2022-03-16 13:45] LABS: BUN Creatinine Ratio 15.7 (10-20); Blood Urea Nitrogen 11 mg/dl (6-23); Calcium 8.9 mg/dl (8.5-10.1); Carbon Dioxide 25 mmol/L (21-32); Chloride 97 mmol/L (98-107); Creatinine Clr Calc Pharmacy 80.7 ml/min; Est GFR (African American) 107.6 ml/min; Est GFR (Non-African American) 92.9 ml/min; Glucose 127 mg/dl (70-99(Fasting))
[2022-03-16 14:35] LABS: Potassium 3.6 mmol/L (3.5-5.1)
--- NOTE | 2022-03-16 16:17 | Hospitalist Progress Note ---
Date of Service March 16, 2022 Assessment & Plan (1) Hyponatremia: (2) Hypokalemia: (3) Weakness: (4) Celiac disease: (5) HLD (hyperlipidemia): (6) GERD (gastroesophageal reflux disease): Plan per admitting service notes with addendum: Pt seen in ED with fatigue, weakness, nausea that has been occurring over the past month and a half. Admit for electrolyte replacement, fluid restriction and monitoring. Hyponatremia, likely secondary to poor oral intake, poor appetite Weakness: Pt has been increasingly thirsty and drinking a lot of water Na+ 124 Placed on fluid restriction 1200 mL/day Sodium improved from 124, now 132 Continue fluid restriction 1.5 mL/day Appetite also improving Repeat basic metabolic profile on follow-up with primary care physician this week next Hypokalemia: K+ 2.8 Replaced Potassium 3.6 Will give potassium supplement 20 mEq/day x 1 week Repeat BMP and follow-up with PCP this week UTI Urine culture gram-negative bacilli Given 1 day of ceftriaxone IV Discharged on cefdinir 300 mg twice daily x4 days Follow-up with PCP this week Oral thrush Nystatin x8 more days Anxiety and depression: Bipolar disorder: Mood stable Continue bupropion, carbamazepine, paroxetine Celiac Disease: diagnosed years ago by colonoscopy gluten free diet HLD: Stable; continue simvastatin Hypothyroidism: Stable; continue Synthroid GERD: Stable; Continue pantoprazole Disposition: PCP: Dr. Marcelo Code: Full Code VTE Prophylaxis: Lovenox SQ Disposition Discharge to home Follow-up with PCP in 1 week plan of care discussed with patient in detail and at length all questions answered she is understanding, agreeable, comfortable with the plan of care Admission and Anticipated Discharge Date Admission Date: March 14, 2022 Subjective Follow-up for hyponatremia, UTI, etc. Seen sitting up in bed, comfortable, not in distress States she feels much better overall Appetite is much better Ambulating in the room with no problems, no dizziness Pain over her tongue improving Denies urinary symptoms, fevers or chills Review of Systems Review of Systems: all noted and negative except for above Physical Exam Physical Exam: General- oriented x 3, not in distress, speaks in sentences with no effort or accessory muscle use Eyes- anicteric Neck- no JVD Lungs- clear BS bilaterally, no rales/wheezes Heart- normal rate, regular rhythm; no murmurs Abdomen- normal bowel sounds, nondistended, soft, nontender Extremities- no pretibial edema, no calf tenderness Neuro- alert, oriented x 3; no gross focal neurologic deficits Skin- warm & dry Results & Data Results & Data ([facility]) Vital Signs (Past 12 Hours) Vital Signs Temp Pulse Pulse Resp BP Pulse Ox O2 Del Method 03/16/22 15:57 36.5 C 70 18 115/72 98 Room Air 03/16/22 15:00 70 03/16/22 08:00 65 03/16/22 08:00 Room Air 03/16/22 11:05 36.8 C 80 18 113/67 96 Room Air 03/16/22 07:48 36.7 C 83 18 123/76 98 Room Air all noted and reviewed including below
--- NOTE | 2022-03-16 16:26 | Discharge Summary ---
Discharge Summary Date of Service March 16, 2022 Notes For Next Care Provider Repeat basic metabolic profile on follow-up this week to check sodium and potassium Medication Changes From Visit Cefdinir 300 mg twice daily x 4 days Nystatin x 8 days Potassium 20 meq use daily x 7 days Santiago 1 mg p.o. daily Admission HPI Per Admitting Provider Ms. Gloria Stein is a 61 y/o female that presented to the [facility] with increased weakness, nausea and fatigue that has been occurring over the past month and a half. She had covid-19 at the end of January and her symptoms have persisted since then. Patient was seen by her PCP for a consistent sinus pressure; she was started on Augmentin and is currently still taking it. Patient has been drinking a lot of water. Patient reports that her water is clear; patient has some dysuria. UA completed. Patient hyponatremic, hypokalemic. CXR negative. Patient smokes nearly 1/2 ppd of cigarettes but hasnt been smoking since shes not feeling well. Patient denies alcohol or recreational drug use. Additional PMH includes: celiac disease, GERD, HLD, hypothyroidism, anxiety, depression, bipolar disorder. Patient denies MUKHERJEE, dizziness, fever, SOB, cough, CP, palpitations, vomiting, diarrhea. Patient will be admitted under hospitalist service for further evaluation and management of her condition. Please see A/P for further details. Admission Exam Per Admitting Provider Neuro: AAOx4, PERRLA, no aphagia, memory changes HEENT: head normocephalic, moist mucus membranes CV: S1/S2, (-) M/G/R, (-) edema, cap refill < 3 seconds Resp: Lungs CTA in all kathleen. On RA GI: Abdomen S/NT/ND, Ax4 bowel sounds, (-) CVA tenderness Musculoskeletal: 5/5 B/L UE strength, 5/5 B/L LE strength. No gait disturbance Skin: (-) rashes , (-) erythema. Psych: euthymic mood Principal Dx & Hospital Course #1 = Principal Diagnosis (1) Hyponatremia: (2) Hypokalemia: (3) Weakness: (4) Celiac disease: (5) HLD (hyperlipidemia): (6) GERD (gastroesophageal reflux disease): Pt seen in ED with fatigue, weakness, nausea that has been occurring over the past month and a half. Admit for electrolyte replacement, fluid restriction and monitoring. Hyponatremia, likely secondary to poor oral intake, poor appetite Weakness: Pt has been increasingly thirsty and drinking a lot of water Na+ 124 Placed on fluid restriction 1200 mL/day Sodium improved from 124, now 132 Continue fluid restriction 1.5 mL/day Appetite also improving Repeat basic metabolic profile on follow-up with primary care physician this week next Hypokalemia: K+ 2.8 Replaced Potassium 3.6 Will give potassium supplement 20 mEq/day x 1 week Repeat BMP and follow-up with PCP this week UTI Urine culture gram-negative bacilli Given 1 day of ceftriaxone IV Discharged on cefdinir 300 mg twice daily x4 days Follow-up with PCP this week Oral thrush Nystatin x8 more days Anxiety and depression: Bipolar disorder: Mood stable Continue bupropion, carbamazepine, paroxetine Celiac Disease: diagnosed years ago by colonoscopy gluten free diet HLD: Stable; continue simvastatin Hypothyroidism: Stable; continue Synthroid GERD: Stable; Continue pantoprazole Disposition: PCP: Dr. Marcelo Code: Full Code VTE Prophylaxis: Lovenox SQ Disposition Discharge to home Follow-up with PCP in 1 week plan of care discussed with patient in detail and at length all questions answered she is understanding, agreeable, comfortable with the plan of care Discharge Exam General- oriented x 3, not in distress, speaks in sentences with no effort or accessory muscle use Eyes- anicteric Neck- no JVD Lungs- clear BS bilaterally, no rales/wheezes Heart- normal rate, regular rhythm; no murmurs Abdomen- normal bowel sounds, nondistended, soft, nontender Extremities- no pretibial edema, no calf tenderness Neuro- alert, oriented x 3; no gross focal neurologic deficits Skin- warm & dry Updated Medication List Medication Instructions Recorded Confirmed Type carbamazepine 200 mg tablet 200 mg PO QAM 03/07/19 03/14/22 History fexofenadine 180 mg tablet 180 mg PO DAILY 03/07/19 03/14/22 History fluticasone propionate 50 2 sprays intranasal BID PRN 03/07/19 03/14/22 History mcg/actuation nasal allergies spray,suspension paroxetine HCl 40 mg tablet 40 mg PO DAILY 03/07/19 03/14/22 History simvastatin 20 mg tablet 20 mg PO HS #30 tabs 09/30/19 10/07/22 History bupropion HCl 300 mg 24 hr tablet, 300 mg PO DAILY 01/18/21 03/14/22 History extended release carbamazepine 200 mg tablet 300 mg PO QPM 01/18/21 03/14/22 History levothyroxine 125 mcg tablet 150 mcg PO DAILY 01/18/21 03/14/22 History pantoprazole 40 mg tablet,delayed 40 mg PO DAILY 01/18/21 03/14/22 History release paroxetine HCl 20 mg tablet 20 mg PO DAILY 01/18/21 03/14/22 History cefdinir 300 mg capsule 300 mg PO BID 4 days #8 caps 03/16/22 Rx folic acid 1 mg tablet 1 mg PO QAM 30 days #30 tabs 03/16/22 Rx nystatin 100,000 unit/mL oral 5 ml PO QID 8 days #160 mL 03/16/22 Rx suspension potassium chloride 10 mEq 20 meq PO DAILY 7 days #14 tabs 03/16/22 Rx tablet,extended release(part/cryst) ([facility]) Hospital Stay Data Consultations 03/14/22 09:58 ED Decision to Admit Stat Procedures Performed XR chest 1V portable HISTORY: feverish COMPARISON: Chest 01/23/2022. FINDINGS: The lungs are clear. Cardiac silhouette is normal in size. No pleural effusions. No pneumothorax. Old, healed right lateral rib fractures. IMPRESSION: No acute process. ACT 112: Negative or not required by law. Pending Results Patient Have Any Pending Studies at Discharge: Yes Discharge Instructions Given to Patient (Per Discharging Provider) PLEASE REFER TO YOUR NEW MEDICATION LIST AND FOLLOW INSTRUCTIONS CAREFULLY. YOUR NEW MEDICATIONS INCLUDE: Cefdinir-antibiotic for urinary tract infection Nystatin-for treatment of oral thrush Potassium supplement Folate acid-supplement for mildly low folate level PLEASE CALL YOUR PRIMARY CARE PHYSICIAN OR RETURN TO THE ER IF WITH WORSENING OF SYMPTOMS, INCLUDING Weakness, poor appetite, fever, nausea and vomiting. FOLLOW UP WITH PRIMARY CARE PHYSICIAN in 1 week. The clinic will be calling you for the appointment. Total Time Total Time Spent Total Time Spent (In Minutes): >30 minutes
[2022-03-16 17:38] LABS: Anion Gap 7.3 (3-11)
== END 2022-03-16 17:41 | disposition home or self-care (01) | DRG 641 ==
LOC: ED 06:19 → 2W 10:14 → SUATTDRO 10:14 → 2W 13:37

== ENCOUNTER 2022-09-26 18:56 | Inpatient (IN) ==
--- NOTE | 2022-09-26 19:54 | Emergency Department Note ---
Impression & Plan Adult failure to thrive, Generalized weakness ED Provider Note HISTORY OF PRESENT ILLNESS: Patient is a 62-year-old female presenting with significant weight loss and failure to thrive. Family provides most of history. Reports the patient has lost over 80 pounds in the last 8 months. Weight loss has been unintentional. They report the patient is barely eating. Patient reports that "I thought I was eating enough." They report that she is too weak to get up and get around anymore and has been lying in bed. She has a history of anxiety and depression. Denies any chest pain or shortness of breath. Denies any abdominal pain, nausea or vomiting. She reports significant weakness with any sort of exertion. Denies any suicidal or homicidal ideation. ROS: as above PHYSICAL EXAM: Constitutional: Patient appears in no acute distress. HENT: Head: Normocephalic and atraumatic. Eyes: EOMI, PERRL Mouth/Throat: Mucous membranes moist. Neck: Trachea midline. Neck supple. Cardiovascular: RRR, No murmurs, rubs or gallops. Intact distal pulses. Pulmonary/Chest: No respiratory distress. Breath sounds clear and equal bilaterally. No wheezes or rales. Abdominal: BS +. Abdomen soft, no tenderness, rebound or guarding. Musculoskeletal: No edema, tenderness or deformity noted. Skin: Warm and dry. No rash, erythema, pallor or cyanosis Psychiatric: Appropriate mood and affect for situation. Neurological: Alert and keenly responsive. CN II-XII grossly intact, moving all extremities equally and fully. MDM: - Vitals signs stable. - History obtained via patient and patient's family. Patient presents with weight loss and failure to thrive. Family provides most of history. Reports patient is lost over 80 pounds in the last 8 months. Weight loss has been unintentional. Reports the patient is barely eating. Reports that she is too weak to get up and get around anymore and has been lying in bed. Patient denies any chest pain, shortness of breath, abdominal pain, nausea or vomiting. She reports she just feels very weak and unable to do anything. - Chronic conditions affecting care: HLD; hypothyroidism; celiac disease - Differential diagnoses include, but are not limited to: pneumonia; UTI; electrolyte abnormality; worsening depression - Order placed for continuous cardiac monitoring. - External medical records reviewed. - Laboratory workup interpreted by myself showed normal WBC; stable electrolytes; normal creatinine; normal glucose - CXR negative for acute cardiopulmonary pathology, per my interpretation. - Discussed results with patient and her family at bedside. They do not feel comfortable taking her home secondary to her generalized weakness and failure to thrive. - Discussion was had with hospice social worker about patient's case and need for admission. - Hospitalist, Dr. Olivarez, consulted for admission. [facility] ASSESSMENT AND PLAN: Diagnosis: failure to thrive; generalized weakness Plan: admit Past Med/Surg History Medical History Adult celiac disease Bipolar disorder Celiac disease GERD (gastroesophageal reflux disease) GERD (gastroesophageal reflux disease) HLD (hyperlipidemia) Hypokalemia Hyponatremia Hypothyroidism Osteoporosis Secondary hyperparathyroidism Vitamin B12 deficiency Vitamin D deficiency Weakness Weakness Family History Other Family history non-contributory Social History Smoking Status: Former smoker Tobacco Type: Cigarettes Second Hand Exposure: No; Hx Alcohol Use: No Hx Substance Use: No Preferred Language: Bulgarian 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: No Beliefs That Will Affect Care: None Current Living Situation: Spouse Feels Safe at Home: Yes Assistive Devices: Glasses Allergies Allergies Allergy/AdvReac Type Severity Reaction Status Date / Time gluten Allergy Intermediate CELIAC Verified 09/26/22 20:25 DISEASE metronidazole Allergy Intermediate RASH Verified 09/26/22 20:25 Home Meds Home Medications Medication Instructions Recorded Confirmed paroxetine HCl 40 mg tablet 40 mg PO DAILY 03/07/19 09/26/22 simvastatin 20 mg tablet 20 mg PO HS #30 tabs 03/07/19 09/26/22 bupropion HCl 300 mg 24 hr tablet, 300 mg PO DAILY 01/18/21 09/26/22 extended release carbamazepine 200 mg tablet See Rx Instructions .Route .COMPLEX 01/18/21 09/26/22 levothyroxine 150 mcg tablet 150 mcg PO DAILYBB 04/08/22 09/26/22 bupropion HCl 150 mg 24 hr tablet, 150 mg PO QAM 09/26/22 09/26/22 extended release buspirone 15 mg tablet 15 mg PO TID 09/26/22 09/26/22 montelukast 10 mg tablet 10 mg PO QAM 09/26/22 09/26/22 pantoprazole 20 mg tablet,delayed 20 mg PO DAILYBB 09/26/22 09/26/22 release Results & Data (ED) Vital Signs Vital Signs - 24 hr 09/26/22 18:59 09/26/22 19:49 09/26/22 21:05 Temperature 36.6 C Temperature Source Temporal Artery Scan Pulse Rate 75 Pulse Rate [Apical] 88 89 Respiratory Rate 18 18 16 Respiratory Effort / Characteristics Non-Labored Spontaneous Non-Labored Non-Labored Respiratory Depth Normal Normal Normal Respiratory Pattern Regular Blood Pressure 112/63 Blood Pressure [Right Arm] 158/94 H 133/77 Blood Pressure Mean 79 Blood Pressure Mean [Right Arm] 115 95 Blood Pressure Position Semi-fowlers Pulse Oximetry 97 99 98 Oxygen Delivery Method Room Air Room Air Room Air Sepsis Recent Fever Within 48 Hours No Sepsis New/Unexplained Change in Mental Status No Sepsis Action Taken by Nursing No Action Required Laboratory Data 09/26/22 20:30 09/26/22 20:30 Lab Results 09/26/22 09/26/22 09/26/22 Range/Units 20:30 20:30 20:34 WBC 4.97 (4.8-10.8) K/ul RBC 3.53 L (4.20-5.40) M/uL Hgb 12.1 (12.0-16.0) g/dl Hct 34.4 L (37.0-47.0) % MCV 97.5 (80.0-100.0) fL MCH 34.3 H (25.0-34.0) pg MCHC 35.2 (32.0-36.0) g/dL RDW Std Deviation 44.3 (36.4-46.3) fL RDW Coeff of Karla 12.3 (11.5-14.5) % Plt Count 277 (130-400) K/uL MPV 10.0 (9.4-12.4) fL Immature Gran % (Auto) 0.0 % Neut % (Auto) 59.9 % Lymph % (Auto) 28.0 % [place] % (Auto) 9.7 % Eos % (Auto) 1.8 % Baso % (Auto) 0.6 % Neut # (Auto) 2.98 (1.40-6.50) K/uL Lymph # (Auto) 1.39 (1.2-3.4) K/uL [place] # (Auto) 0.48 (0.11-0.59) K/uL Eos # (Auto) 0.09 (0-0.50) K/uL Baso # (Auto) 0.03 (0-0.2) K/uL Immature Gran # (Auto) 0.00 L (0.01-0.20) K/uL Sodium 139 (136-145) mmol/L Potassium 3.8 (3.5-5.1) mmol/L Chloride 103 (98-107) mmol/L Carbon Dioxide 27 (21-32) mmol/L Anion Gap 9 (3-11) BUN 14 (6-23) mg/dl Creatinine 0.60 (0.6-1.2) mg/dl Est Cr Clr Drug Dosing 75.9 ml/min Est GFR ( Amer) 112.4 ml/min Est GFR (Non-Af Amer) 97.0 ml/min BUN/Creatinine Ratio 23.3 H (10-20) Glucose 106 H (70-99(Fasting)) mg/dl Calcium 9.3 (8.6-10.3) mg/dl Magnesium 1.8 (1.7-2.4) mg/dl Total Bilirubin 0.5 (0.2-1.0) mg/dl AST 20 (13-39) U/L ALT 21 (7-52) U/L Alkaline Phosphatase 55 (34-104) U/L Troponin I High Sens 4.5 (0-14) pg/ml Total Protein 6.7 (6.0-8.3) gm/dl Albumin 4.1 (3.4-5.0) gm/dl Globulin 2.6 (2.5-4.0) gm/dl Albumin/Globulin Ratio 1.6 (0.9-2) SARS-CoV-2, RNA, NAAT NEGATIVE (NEGATIVE) Imaging Data Radiologist's Impression: Chest X-Ray 09/26/22 19:49 SINGLE VIEW CHEST CLINICAL HISTORY: Malaise. FINDINGS: An AP, portable, upright chest radiograph is compared to study dated 03/14/2022. The cardiomediastinal silhouette is unremarkable. The lungs and pleural spaces are clear. No pneumothorax is seen. The skeletal structures are osteopenic. The bony thorax is grossly intact. IMPRESSION: No active disease in the chest. ACT 112: Negative or not required by law. Electronically signed by: Cain Martino M.D. 09/26/2022 8:37 PM Discharge Plan Visit Data Chief Complaint: Illness Stated Complaint: MENTAL HEALTH EVAL ED Provider: Jhoana Saldana Discharge Problem: Adult failure to thrive, Generalized weakness Forms Stand Alone Forms: My [facility] Prescriptions Prescriptions: No Action paroxetine HCl 40 mg tablet 40 mg PO DAILY simvastatin 20 mg tablet 20 mg PO HS Qty: 30 carbamazepine 200 mg tablet See Rx Instructions .ROUTE .COMPLEX Rx Instructions: TAKES 200 MG QAM, THEN 300 MG QPM. bupropion HCl 300 mg tablet extended release 24 hr 300 mg PO DAILY Rx Instructions: TOTAL DOSE 450 MG--TAKES WITH 150 MG TAB. levothyroxine 150 mcg tablet 150 mcg PO DAILYBB pantoprazole 20 mg tablet,delayed release (DR/EC) 20 mg PO DAILYBB montelukast 10 mg tablet 10 mg PO QAM buspirone 15 mg tablet 15 mg PO TID Rx Instructions: PER PT "NEW ORDER RECENTLY". bupropion HCl 150 mg tablet extended release 24 hr 150 mg PO QAM Rx Instructions: TOTAL DOSE 450 MG--TAKES WITH 300 MG TAB. Referrals Referrals: Karla Kearney PA-C [Outside Practitioners] -
--- NOTE | 2022-09-26 20:38 | XRay Report ---
SINGLE VIEW CHEST CLINICAL HISTORY: Malaise. FINDINGS: An AP, portable, upright chest radiograph is compared to study dated 03/14/2022. The cardiom ediastinal silhouette is unremarkable. The lungs and pleural spaces are clear. No pneumothorax is see n. The skeletal structures are osteopenic. The bony thorax is grossly intact. IMPRESSION: No active disease in the chest. ACT 112: Negative or not required by law. Electronically signed by: Cain Martino M.D. 09/26/2022 8:37 PM
[2022-09-26 20:52] LABS: Basophils # (auto) 0.03 K/uL (0-0.2); Basophils % (auto) 0.6 %; Eosinophils # (auto) 0.09 K/uL (0-0.50); Eosinophils % (auto) 1.8 %; Hematocrit (blood only) 34.4 % (37.0-47.0); Hemoglobin 12.1 g/dl (12.0-16.0); Lymphocytes # (auto) 1.39 K/uL (1.2-3.4); Mean Corpuscular Hemoglobin 34.3 pg (25.0-34.0); Mean Corpuscular Hgb Conc 35.2 g/dL (32.0-36.0); Mean Corpuscular Volume 97.5 fL (80.0-100.0); Monocytes # (auto) 0.48 K/uL (0.11-0.59); Monocytes % (auto) 9.7 %; Neutrophils # (auto) 2.98 K/uL (1.40-6.50); Neutrophils % (auto) 59.9 %; Platelet Count 277 K/uL (130-400); RDW Coefficient of Variation 12.3 % (11.5-14.5); RDW Standard Deviation 44.3 fL (36.4-46.3); Red Blood Count 3.53 M/uL (4.20-5.40); White Blood Count 4.97 K/ul (4.8-10.8)
[2022-09-26 21:09] LABS: Albumin Globulin Ratio 1.6 (0.9-2); Albumin Level 4.1 gm/dl (3.4-5.0); BUN Creatinine Ratio 23.3 (10-20); Bilirubin,Total 0.5 mg/dl (0.2-1.0); Calcium 9.3 mg/dl (8.6-10.3); Creatinine Clr Calc Pharmacy 75.9 ml/min; Est GFR (African American) 112.4 ml/min; Globulin 2.6 gm/dl (2.5-4.0); Magnesium 1.8 mg/dl (1.7-2.4); Potassium 3.8 mmol/L (3.5-5.1); Total Protein 6.7 gm/dl (6.0-8.3)
[2022-09-26 21:14] LABS: Troponin I High Sensitivity 4.5 pg/ml (0-14)
[2022-09-26] MEDS ORDERED: LACTATED RINGER'S 1,000 ML IV ONE (21:35)
[2022-09-26 23:52] LABS: Thyroid Stimulating Hormone 0.063 uIu/ml (0.300-4.500)
--- NOTE | 2022-09-26 23:58 | History & Physical Report ---
Date of Service September 26, 2022 Assessment & Plan (1) Generalized weakness: Plan: significant amotivation leading to weight loss post COVID-19 illness 8 months ago Worsening mood disorder hypothyroidism, TSH noted to be low hyperlipidemia, on statin Rx Hyperglycemia rule out DM past tobacco abuse O[facility] Psych consult Re: Worsening depression Check total T3 Check hemoglobin A1c PT OT eval Nutrition consult Re: Nutrition eval DVT prophylaxis Lovenox subcu Full code Patient requesting updates from providers. Mr. Carlton Stein, contact #[phone]. Text document was generated using [employer] voice recognition software. It may contain grammatical or spelling errors. Kindly contact undersigned for clarification of any documentation item in question. History of Present Illness Chief Complaint: Generalized weakness, depression Primary Care Provider: Jameel Marcelo MD History obtained from patient, family, and records. Medical history significant fo for hypothyroidism, hyperlipidemia, anxiety/mood disorder, celiac disease, past tobacco abuse. Last confinement March 2022 for hyponatremia and hypokalemia secondary to poor p.o. intake. Patient noted increased fatigue, motivation following COVID-19 illness in January 2022. Anxiety and depression worse. Denies suicidality. Denies headache, chest pain, shortness of breath, abdominal pain. 60-80 pound weight loss over last 8 months as per family. Symptoms worse after grandchildren moved out of the home a few months ago. Patient seen by [facility] telepsychiatrist via video meeting yesterday. Impression was anxiety and dysthymia. Amotivation was biggest patient concerned as per note. Patient instructed continue Wellbutrin XL in a.m. to help with energy and mood. Paxil to be taken at night as it may contribute to daytime fatigue/sedation. Are increased to 50 mg 3 times daily. Patient told to continue carbamazepine at current doses. Unclear indication for medication for which psychiatrist recommended decreasing dose. CBT therapy recommended. Patient and family unhappy with video meetings with psychiatrist citing lack of personal connection. Family does not feel patient cannot care for herself at home. Patient brought to the ER for evaluation. 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 Allergies Allergy/AdvReac Type Severity Reaction Status Date / Time gluten Allergy Intermediate CELIAC Verified 09/26/22 20:25 DISEASE metronidazole Allergy Intermediate RASH Verified 09/26/22 20:25 Home Medications Medication Instructions Recorded Confirmed Type paroxetine HCl 40 mg tablet 40 mg PO DAILY 03/07/19 09/26/22 History simvastatin 20 mg tablet 20 mg PO HS #30 tabs 03/07/19 09/26/22 History bupropion HCl 300 mg 24 hr tablet, 300 mg PO DAILY 01/18/21 09/26/22 History extended release carbamazepine 200 mg tablet See Rx Instructions .Route .COMPLEX 01/18/21 09/26/22 History levothyroxine 150 mcg tablet 150 mcg PO DAILYBB 04/08/22 09/26/22 History bupropion HCl 150 mg 24 hr tablet, 150 mg PO QAM 09/26/22 09/26/22 History extended release buspirone 15 mg tablet 15 mg PO TID 09/26/22 09/26/22 History montelukast 10 mg tablet 10 mg PO QAM 09/26/22 09/26/22 History pantoprazole 20 mg tablet,delayed 20 mg PO DAILYBB 09/26/22 09/26/22 History release Past Med/Surg History Medical History (Updated 09/27/22 @ 09:46 by Bety Davenport DO) Adult celiac disease Bipolar disorder Celiac disease GERD (gastroesophageal reflux disease) GERD (gastroesophageal reflux disease) HLD (hyperlipidemia) Hypokalemia Hyponatremia Hypothyroidism Osteoporosis Secondary hyperparathyroidism Vitamin B12 deficiency Vitamin D deficiency Weakness Weakness Family History Other Family history non-contributory Social History Smoking Status: Former smoker Tobacco Type: Cigarettes Second Hand Exposure: No; Hx Alcohol Use: No Hx Substance Use: No Preferred Language: [place] Rican Communication Ability: Effective Cdl Instructor Required: No Beliefs That Will Affect Care: None Current Living Situation: Spouse Other Information That Helps Us Care for You: No Feels Safe at Home: Yes Safety Concerns: Feels Safe At This Time Assistive Devices: None Review of Systems Review of Systems: As per HPI, all other systems reviewed and negative Physical Exam Physical Exam: GENERAL: Comfortable, depressed, pleasant, no respiratory distress SKIN: Normal color, warm HEENT: Bespectacled, [place] palpebral conjunctivae, no ptosis, dry buccal mucosa NECK : Supple, no tenderness CHEST : CTA, no tenderness HEART : RRR, no obvious murmurs ABDOMEN: Some distention, nontender EXTREMITIES : No LE swelling/tenderness, no other conspicuous deformities noted NEUROLOGIC : Coherent, no facial asymmetry, no other gross focality Results & Data Results & Data Vital Signs (Past 12 Hours) Vital Signs Temp Pulse Pulse Resp BP BP Pulse Ox 09/26/22 21:05 89 16 133/77 98 09/26/22 19:49 88 18 158/94 H 99 09/26/22 18:59 36.6 C 75 18 112/63 97 O2 Del Method 09/26/22 21:05 Room Air 09/26/22 19:49 Room Air 09/26/22 18:59 Room Air Laboratory Results Laboratory Results WBC 4.97 K/ul (4.8-10.8) 09/26/22 20:30 RBC 3.53 M/uL (4.20-5.40) L 09/26/22 20:30 Hgb 12.1 g/dl (12.0-16.0) 09/26/22 20:30 Hct 34.4 % (37.0-47.0) L 09/26/22 20:30 MCV 97.5 fL (80.0-100.0) 09/26/22 20:30 MCH 34.3 pg (25.0-34.0) H 09/26/22 20:30 MCHC 35.2 g/dL (32.0-36.0) 09/26/22 20:30 RDW Std Deviation 44.3 fL (36.4-46.3) 09/26/22 20:30 RDW Coeff of Karla 12.3 % (11.5-14.5) 09/26/22 20:30 Plt Count 277 K/uL (130-400) 09/26/22 20:30 MPV 10.0 fL (9.4-12.4) 09/26/22 20:30 Immature Gran % (Auto) 0.0 % 09/26/22 20:30 Neut % (Auto) 59.9 % 09/26/22 20:30 Lymph % (Auto) 28.0 % 09/26/22 20:30 Winn % (Auto) 9.7 % 09/26/22 20:30 Eos % (Auto) 1.8 % 09/26/22 20:30 Baso % (Auto) 0.6 % 09/26/22 20:30 Neut # (Auto) 2.98 K/uL (1.40-6.50) 09/26/22 20:30 Lymph # (Auto) 1.39 K/uL (1.2-3.4) 09/26/22 20:30 Winn # (Auto) 0.48 K/uL (0.11-0.59) 09/26/22 20:30 Eos # (Auto) 0.09 K/uL (0-0.50) 09/26/22 20:30 Baso # (Auto) 0.03 K/uL (0-0.2) 09/26/22 20:30 Immature Gran # (Auto) 0.00 K/uL (0.01-0.20) L 09/26/22 20:30 Sodium 139 mmol/L (136-145) 09/26/22 20:30 Potassium 3.8 mmol/L (3.5-5.1) 09/26/22 20:30 Chloride 103 mmol/L (98-107) 09/26/22 20:30 Carbon Dioxide 27 mmol/L (21-32) 09/26/22 20:30 Anion Gap 9 (3-11) 09/26/22 20:30 BUN 14 mg/dl (6-23) 09/26/22 20:30 Creatinine 0.60 mg/dl (0.6-1.2) 09/26/22 20:30 Est Cr Clr Drug Dosing 75.9 ml/min 09/26/22 20:30 Est GFR ( Amer) 112.4 ml/min 09/26/22 20:30 Est GFR (Non-Af Amer) 97.0 ml/min 09/26/22 20:30 BUN/Creatinine Ratio 23.3 (10-20) H 09/26/22 20:30 Glucose 106 mg/dl (70-99(Fasting)) H 09/26/22 20:30 Calcium 9.3 mg/dl (8.6-10.3) 09/26/22 20:30 Magnesium 1.8 mg/dl (1.7-2.4) 09/26/22 20:30 Total Bilirubin 0.5 mg/dl (0.2-1.0) 09/26/22 20:30 AST 20 U/L (13-39) 09/26/22 20:30 ALT 21 U/L (7-52) 09/26/22 20:30 Alkaline Phosphatase 55 U/L (34-104) 09/26/22 20:30 Troponin I High Sens 4.5 pg/ml (0-14) 09/26/22 20:30 Total Protein 6.7 gm/dl (6.0-8.3) 09/26/22 20:30 Albumin 4.1 gm/dl (3.4-5.0) 09/26/22 20:30 Globulin 2.6 gm/dl (2.5-4.0) 09/26/22 20:30 Albumin/Globulin Ratio 1.6 (0.9-2) 09/26/22 20:30 TSH 0.063 uIu/ml (0.300-4.500) L 09/26/22 20:34 Carbamazepine 9.8 mcg/ml (4-12) 09/26/22 20:34 SARS-CoV-2, RNA, NAAT NEGATIVE (NEGATIVE) 09/26/22 20:34 Impressions Chest X-Ray 09/26/22 19:49 SINGLE VIEW CHEST CLINICAL HISTORY: Malaise. FINDINGS: An AP, portable, upright chest radiograph is compared to study dated 03/14/2022. The cardiomediastinal silhouette is unremarkable. The lungs and pleural spaces are clear. No pneumothorax is seen. The skeletal structures are osteopenic. The bony thorax is grossly intact. IMPRESSION: No active disease in the chest. ACT 112: Negative or not required by law. Electronically signed by: Cain Martino M.D. 09/26/2022 8:37 PM
[2022-09-27 00:27] LABS: T4 Free Thyroxine 1.3 ng/dl (0.61-1.60)
[2022-09-27] MEDS ORDERED: PROMETHAZINE HCL 6.25 MG in SODIUM CHLORIDE 0.9% 50 ML IV PRN (01:25)
[2022-09-27] MEDS ORDERED: ACETAMINOPHEN 325 MG TAB PO PRN (01:25)
[2022-09-27] MEDS: PANTOprazole 40 MG TAB PO SCH (05:37)
[2022-09-27] MEDS ORDERED: LEVOTHYROXINE SODIUM 150 MCG TABLET PO SCH (06:30)
[2022-09-27 07:46] LABS: Appearance Urine Clear (Clear); Bacteria Urine Automated Negative (Negative); Bilirubin Urine Negative (Negative); Blood Urine Trace (Negative); Color Urine Dark Yellow; Epithelial Cell Urine Auto >30 /lpf (0-5); Glucose Urine UA Negative (Negative); Ketones Urine Negative (Negative); Leukocyte Esterase Urine Negative (Negative); Nitrite Urine Negative (Negative); Protein Urine Negative (Negative); RBC Urine Automated 0-4 /hpf (0-4); Specific Gravity Urine 1.014 (1.000-1.030); Urobilinogen Urine Negative (Negative)
[2022-09-27] MEDS: MONTELUKAST SODIUM 10 MG TABLET PO SCH (08:13)
[2022-09-27] MEDS: carBAMazepine 200 MG TABLET PO SCH ×2 (08:13→20:13)
[2022-09-27] MEDS: ENOXAPARIN INJ 30 MG/0.3 ML SYR SQ SCH (08:14)
[2022-09-27] MEDS ORDERED: busPIRone 15 MG TAB PO SCH (09:00)
[2022-09-27] MEDS ORDERED: PARoxetine HCL 20 MG TAB PO SCH (09:00)
[2022-09-27] MEDS ORDERED: buPROPion XL 150 MG TABCR PO SCH (09:00)
--- NOTE | 2022-09-27 09:46 | Hospitalist Progress Note ---
Date of Service September 27, 2022 Assessment & Plan (1) Depressive disorder, not elsewhere classified: Plan: Severe depression with weight loss, not suicidal. Cont plan per psych including stopped buspar, taper Wellbutrin. Patient is uncertain why she is on tegretol so owe are econtinuing this now. (2) Weight loss, intentional: Plan: Loss of weight 2/2 severe depression, likely contributing to relative toxicity of current medications. Taper as above. (3) Hypothyroidism: Plan: Currently hyperthyroid on Synthroid 150mcg daily. No evidence of storm-- no palpitations or cardiac instability. Howeever she does report insomnia and weight loss. Decreased Synthroid to 125mcg daily and thyroid function tests should be repeated in 6-8 weeks. Taper of all medications should help with hot flashes. (4) Generalized weakness: Plan: plan as above. Still ambulates independently (5) Celiac disease: Plan: chronic, stable. gluten free diet Lovenox Full Dispo-to home when improved and meds are successfully tapered. Needs to continue closely with outpatient counselor for depression treatment. Bety Davenport DO [facility] Admission and Anticipated Discharge Date Admission Date: September 26, 2022 Subjective 62 yo F with depression and weight loss for 6 months. She was admitted after presenting with hot flashes and generalized malaise. Here she feels she is making progress because she has now successfully eaten 3 meals She feels supported by the staff Still with intermittent hot flashes. On same dose of synthroid despite losing >50 lbs in the past 6 months Also has not de-escalated her mood medications Review of Systems Review of Systems: All systems were reviewed and negative except as indicated on subjective above. Physical Exam Physical Exam: CONSTITUTIONAL: WNWD, vitals as above, generally well-appearing, NAD EYES: normal conjunctivae, no scleral icterus ENT: external ear and nose normal, MMM NECK: trachea midline RESPIRATORY: clear to auscultation bilaterally, no crackles, rales or wheezes, normal respiratory effort CARDIOVASCULAR: regular rate and rhythm, S1 and 2 heard without murmurs, gallops or rubs, no JVD, no peripheral edema CHEST: inspection of chest was normal GASTROINTESTINAL: soft, nontender, nD, no guarding MUSCULOSKELETAL: strength 5/5 throughout, head is normocephalic and atraumatic SKIN: warm and dry NEUROLOGIC: CN 2-12 grossly intact, no sensory deficit, normal cognition, normal speech, no tremor PSYCHIATRIC: alert cooperative and oriented to person, place and time. Euthymic mood, makes good eye contact, language grossly intact, recent and remote memory grossly intact. Results & Data Results & Data Vital Signs (Past 12 Hours) Vital Signs Temp Pulse Pulse Resp BP BP Pulse Ox 09/27/22 08:06 36.8 C 81 18 107/76 98 09/27/22 01:10 36.7 C 79 14 132/59 L 95 09/27/22 00:00 85 18 155/74 H 95 09/26/22 23:31 86 16 130/82 100 O2 Del Method 09/27/22 08:06 Room Air 09/27/22 01:10 Room Air 09/27/22 00:00 Room Air 09/26/22 23:31 Room Air Laboratory Results Short CBC 09/26/22 Range/Units 20:30 WBC 4.97 (4.8-10.8) K/ul Hgb 12.1 (12.0-16.0) g/dl Hct 34.4 L (37.0-47.0) % Plt Count 277 (130-400) K/uL BMP 09/26/22 20:30 Sodium 139 Potassium 3.8 Chloride 103 Carbon Dioxide 27 BUN 14 Creatinine 0.60 Glucose 106 H Calcium 9.3 Liver Function 09/26/22 Range/Units 20:30 Total Bilirubin 0.5 (0.2-1.0) mg/dl AST 20 (13-39) U/L ALT 21 (7-52) U/L Alkaline Phosphatase 55 (34-104) U/L Albumin 4.1 (3.4-5.0) gm/dl Urine 09/27/22 Range/Units Unknown Urine Color Dark Yellow Urine Appearance Clear (Clear) Urine pH 6.0 (4.5-7.5) Ur Specific Nixon 1.014 (1.000-1.030) Urine Protein Negative (Negative) Urine Glucose (UA) Negative (Negative) Medications Administered Current Inpatient Medications Acetaminophen (Acetaminophen 325 Mg Tab) 650 mg PO Q4H PRN PRN Reason: pain/fever Stop: 10/27/22 01:24 Bupropion HCl (Bupropion Xl 150 Mg Tabcr) 450 mg PO QAM [facility] Stop: 10/27/22 08:59 Last Admin: 09/27/22 08:13 Dose: 450 mg Buspirone HCl (Buspirone 15 Mg Tab) 15 mg PO TID [facility] Stop: 10/27/22 08:59 Last Admin: 09/27/22 08:13 Dose: 15 mg Carbamazepine (Carbamazepine 200 Mg Tablet) 300 mg PO HS [facility] Stop: 10/27/22 20:59 Carbamazepine (Carbamazepine 200 Mg Tablet) 200 mg PO QAM [facility] Stop: 10/27/22 08:59 Last Admin: 09/27/22 08:13 Dose: 200 mg Enoxaparin Sodium (Enoxaparin Inj 30 Mg/0.3 Ml Syr) [facility] Stop: 10/27/22 08:59 Last Admin: 09/27/22 08:14 Dose: Not Given Lactated Ringer's (Lr) 1,000 mls @ 80 mls/hr IV .[id number] ONE Stop: 09/27/22 10:04 Last Admin: 09/26/22 23:09 Dose: 80 mls/hr Promethazine HCl 6.25 mg/ (Sodium Chloride) 50.25 mls @ 201 mls/hr IV Q6H PRN PRN Reason: Nausea And Vomiting Stop: 10/27/22 01:24 Levothyroxine Sodium (Levothyroxine Sodium 150 Mcg Tablet) 150 mcg PO DAILYBB [facility] Stop: 10/27/22 06:29 Last Admin: 09/27/22 05:37 Dose: 150 mcg Montelukast Sodium (Montelukast Sodium 10 Mg Tablet) 10 [facility] Stop: 10/27/22 08:59 Last Admin: 09/27/22 08:13 Dose: 10 mg Pantoprazole Sodium (Pantoprazole 40 Mg Tab) 40 mg PO DAILYBB [facility] Stop: 10/27/22 06:29 Last Admin: 09/27/22 05:37 Dose: 40 mg Paroxetine HCl (Paroxetine Hcl 20 Mg Tab) 40 mg PO HS [facility] Stop: 10/28/22 20:59 Simvastatin (Simvastatin 20 Mg Tab) 20 mg PO HS [facility] Stop: 10/27/22 20:59
[2022-09-27 10:28] LABS: Estimated Average Glucose 111 mg/dl; Hemoglobin A1C 5.5 % (4.5-5.6)
--- NOTE | 2022-09-27 14:28 | Psychiatric Consultation ---
Date of Consultation September 27, 2022 Impression / Recommendations Impression 62 yo female with a history of thyroid issues and anxiety, longstanding rx of Paxil and Tegretol, the latter with unclear indication, can cause hyponatremia, and causes autoinduction and thus alters levels of other meds. Buspar not effective and could contribute to mild serotonin syndrome which can present with weakness. Does not appear to have clonus or confusion on exam. Wellbutrin can cause poor appetite and although dose has not be address since significant weight loss. (1) Generalized weakness: (2) Depressive disorder, not elsewhere classified: Plan I do not have access to outpatient records, would defer taper of Tegretol to outpatient psychiatrist ([facility]). Patient is not aware of date/time of her outpatient f/u. case reviewed briefly with Dr. Davenport as would start Wellbutrin taper to 300 mg daily and hold Buspar to limit polypharm would consider additional taper of Wellbutrin on outpatient basis and if no improvement in appetite would next consider Remeron Psych History Identifying Data 62 yo female from [place] admit with unexplained weight loss and weakness. Consult by Dr. Davenport for co management/medication recs. Chief Complaint "I don't know why, i just feel hot in my legs and then there is some welling" History of Present Illness Patient has a dx of bipolar listed on chart but denies a bipolar dx. States she was placed on Paxil decades ago as she adopted a daughter and there was some concern the family may take her back. She was on Paxil 60 mg at one point but it was decreased to 40 mg due to intermittent hyponatremia. Surprisingly she has remained on carbamazepine for some time which can contribute to same. She denies it's for seizure or migraine. It's unclear when she was placed on 450 mg total daily dose of Wellbutrin, per patient well before her 80 lbs. weight loss. Most recent med change by [facility] telepsychiatrist likely titration of Buspar. Weakness and flushing perhaps got worse but does not necessarily attribute it to medication. She often doesn't take three doses or full pill per patient. Of interest she reported similar symptoms during a previous stay from eating gluten. She has some anxiety that refeeding will be uncomfortable. She doesn't necessarily describe herself as depressed but hasn't left the house for several months and scores 18 on PHQ-9 (0 on #9, no SI). Main issues are anhedonia, feeling down, feeling tired and poor appetite which may or may not be related to her depression. Past Psychiatric History Outpatient Services: [facility] Previous Psych Admissions: denied Do You Have Access To A Gun?: No History of Previous Suicide Attempt: No (denied) Past Medication Trials: unsure Allergies Allergy/AdvReac Type Severity Reaction Status Date / Time gluten Allergy Intermediate CELIAC Verified 09/26/22 20:25 DISEASE metronidazole Allergy Intermediate RASH Verified 09/26/22 20:25 Home Medications Medication Instructions Recorded Confirmed Type paroxetine HCl 40 mg tablet 40 mg PO DAILY 03/07/19 09/26/22 History simvastatin 20 mg tablet 20 mg PO HS #30 tabs 03/07/19 09/26/22 History bupropion HCl 300 mg 24 hr tablet, 300 mg PO DAILY 01/18/21 09/26/22 History extended release carbamazepine 200 mg tablet See Rx Instructions .Route .COMPLEX 01/18/21 09/26/22 History levothyroxine 150 mcg tablet 150 mcg PO DAILYBB 04/08/22 09/26/22 History bupropion HCl 150 mg 24 hr tablet, 150 mg PO QAM 09/26/22 09/26/22 History extended release buspirone 15 mg tablet 15 mg PO TID 09/26/22 09/26/22 History montelukast 10 mg tablet 10 mg PO QAM 09/26/22 09/26/22 History pantoprazole 20 mg tablet,delayed 20 mg PO DAILYBB 09/26/22 09/26/22 History release Patient History Medical History Adult celiac disease Bipolar disorder Celiac disease GERD (gastroesophageal reflux disease) GERD (gastroesophageal reflux disease) HLD (hyperlipidemia) Hypokalemia Hyponatremia Hypothyroidism Osteoporosis Secondary hyperparathyroidism Vitamin B12 deficiency Vitamin D deficiency Weakness Weakness Family History Other Family history non-contributory Social History Smoking Status: Former smoker Tobacco Type: Cigarettes Second Hand Exposure: No; Hx Alcohol Use: No Hx Substance Use: No Preferred Language: Lao Communication Ability: Effective Representative Personal Service Required: No Beliefs That Will Affect Care: None Current Living Situation: Spouse Other Information That Helps Us Care for You: No Feels Safe at Home: Yes Safety Concerns: Feels Safe At This Time Assistive Devices: None Physical Exam Psychiatric: Orientation: alert Apperance: appropriately dressed and appropriately groomed Eye Contact: good eye contact Motor Behavior: no abnormal motor movements no clonus appreciated Speech: normal rate/rhythm/volume of speech Affect: euthymic affect Mood: + anxious mood Thought Process: linear/logical thought process Thought Content: reality based without delusions Suicidal Thoughts: denies suicidal thoughts Homicidal Thoughts: denies homicidal thoughts Hallucinations: no auditory hallucinations and no visual hallucinations Cognition: language grossly intact Insight: + fair insight Judgment: + f air judgement Vital Signs (Past 24 Hours): Last Vital Signs Temp 36.8 C 09/27/22 08:06 Pulse 81 09/27/22 08:06 Resp 18 09/27/22 08:06 BP 107/76 09/27/22 08:06 Pulse Ox 98 09/27/22 08:06 O2 Del Method Room Air 09/27/22 08:06 Review of Systems All systems reviewed & are unremarkable except as noted in HPI & below Results & Data (PSY) Laboratory Results 09/27/22 09/27/22 09/26/22 Range/Units Unknown 05:53 20:34 WBC (4.8-10.8) K/ul RBC (4.20-5.40) M/uL Hgb (12.0-16.0) g/dl Hct (37.0-47.0) % MCV (80.0-100.0) fL MCH (25.0-34.0) pg MCHC (32.0-36.0) g/dL RDW Std Deviation (36.4-46.3) fL RDW Coeff of Karla (11.5-14.5) % Plt Count (130-400) K/uL MPV (9.4-12.4) fL Immature Gran % (Auto) % Neut % (Auto) % Lymph % (Auto) % [place] % (Auto) % Eos % (Auto) % Baso % (Auto) % Neut # (Auto) (1.40-6.50) K/uL Lymph # (Auto) (1.2-3.4) K/uL [place] # (Auto) (0.11-0.59) K/uL Eos # (Auto) (0-0.50) K/uL Baso # (Auto) (0-0.2) K/uL Immature Gran # (Auto) (0.01-0.20) K/uL Sodium (136-145) mmol/L Potassium (3.5-5.1) mmol/L Chloride (98-107) mmol/L Carbon Dioxide (21-32) mmol/L Anion Gap (3-11) BUN (6-23) mg/dl Creatinine (0.6-1.2) mg/dl Est Cr Clr Drug Dosing ml/min Est GFR ( Amer) ml/min Est GFR (Non-Af Amer) ml/min BUN/Creatinine Ratio (10-20) Glucose (70-99(Fasting)) mg/dl Estimat Average Glucose mg/dl Hemoglobin A1c (4.5-5.6) % Calcium (8.6-10.3) mg/dl Magnesium (1.7-2.4) mg/dl Total Bilirubin (0.2-1.0) mg/dl AST (13-39) U/L ALT (7-52) U/L Alkaline Phosphatase (34-104) U/L Troponin I High Sens (0-14) pg/ml Total Protein (6.0-8.3) gm/dl Albumin (3.4-5.0) gm/dl Globulin (2.5-4.0) gm/dl Albumin/Globulin Ratio (0.9-2) TSH (0.300-4.500) uIu/ml Free T4 (0.61-1.60) ng/dl Total T3 Pending Urine Color Dark Yellow Urine Appearance Clear (Clear) Urine pH 6.0 (4.5-7.5) Ur Specific Fill[place] 1.014 (1.000-1.030) Urine Protein Negative (Negative) Urine Glucose (UA) Negative (Negative) Urine Ketones Negative (Negative) Urine Blood Trace H (Negative) Urine Nitrite Negative (Negative) Urine Bilirubin Negative (Negative) Urine Urobilinogen Negative (Negative) Ur Leukocyte Esterase Negative (Negative) Urine WBC (Auto) 1-5 (0-5) /hpf Urine RBC (Auto) 0-4 (0-4) /hpf U Hyaline Cast (Auto) 1-5 (0-5) /lpf U Epithel Cells (Auto) >30 H (0-5) /lpf Urine Bacteria (Auto) Negative (Negative) Carbamazepine 9.8 (4-12) mcg/ml SARS-CoV-2, RNA, NAAT (NEGATIVE) 09/26/22 09/26/22 09/26/22 Range/Units 20:34 20:34 20:30 WBC (4.8-10.8) K/ul RBC (4.20-5.40) M/uL Hgb (12.0-16.0) g/dl Hct (37.0-47.0) % MCV (80.0-100.0) fL MCH (25.0-34.0) pg MCHC (32.0-36.0) g/dL RDW Std Deviation (36.4-46.3) fL RDW Coeff of Karla (11.5-14.5) % Plt Count (130-400) K/uL MPV (9.4-12.4) fL Immature Gran % (Auto) % Neut % (Auto) % Lymph % (Auto) % [place] % (Auto) % Eos % (Auto) % Baso % (Auto) % Neut # (Auto) (1.40-6.50) K/uL Lymph # (Auto) (1.2-3.4) K/uL [place] # (Auto) (0.11-0.59) K/uL Eos # (Auto) (0-0.50) K/uL Baso # (Auto) (0-0.2) K/uL Immature Gran # (Auto) (0.01-0.20) K/uL Sodium (136-145) mmol/L Potassium (3.5-5.1) mmol/L Chloride (98-107) mmol/L Carbon Dioxide (21-32) mmol/L Anion Gap (3-11) BUN (6-23) mg/dl Creatinine (0.6-1.2) mg/dl Est Cr Clr Drug Dosing ml/min Est GFR ( Amer) ml/min Est GFR (Non-Af Amer) ml/min BUN/Creatinine Ratio (10-20) Glucose (70-99(Fasting)) mg/dl Estimat Average Glucose 111 mg/dl Hemoglobin A1c 5.5 (4.5-5.6) % Calcium (8.6-10.3) mg/dl Magnesium (1.7-2.4) mg/dl Total Bilirubin (0.2-1.0) mg/dl AST (13-39) U/L ALT (7-52) U/L Alkaline Phosphatase (34-104) U/L Troponin I High Sens (0-14) pg/ml Total Protein (6.0-8.3) gm/dl Albumin (3.4-5.0) gm/dl Globulin (2.5-4.0) gm/dl Albumin/Globulin Ratio (0.9-2) TSH 0.063 L (0.300-4.500) uIu/ml Free T4 1.30 (0.61-1.60) ng/dl Total T3 Urine Color Urine Appearance (Clear) Urine pH (4.5-7.5) Ur Specific [place] (1.000-1.030) Urine Protein (Negative) Urine Glucose (UA) (Negative) Urine Ketones (Negative) Urine Blood (Negative) Urine Nitrite (Negative) Urine Bilirubin (Negative) Urine Urobilinogen (Negative) Ur Leukocyte Esterase (Negative) Urine WBC (Auto) (0-5) /hpf Urine RBC (Auto) (0-4) /hpf U Hyaline Cast (Auto) (0-5) /lpf U Epithel Cells (Auto) (0-5) /lpf Urine Bacteria (Auto) (Negative) Carbamazepine (4-12) mcg/ml SARS-CoV-2, RNA, NAAT NEGATIVE (NEGATIVE) 09/26/22 09/26/22 Range/Units 20:30 20:30 WBC 4.97 (4.8-10.8) K/ul RBC 3.53 L (4.20-5.40) M/uL Hgb 12.1 (12.0-16.0) g/dl Hct 34.4 L (37.0-47.0) % MCV 97.5 (80.0-100.0) fL MCH 34.3 H (25.0-34.0) pg MCHC 35.2 (32.0-36.0) g/dL RDW Std Deviation 44.3 (36.4-46.3) fL RDW Coeff of Karla 12.3 (11.5-14.5) % Plt Count 277 (130-400) K/uL MPV 10.0 (9.4-12.4) fL Immature Gran % (Auto) 0.0 % Neut % (Auto) 59.9 % Lymph % (Auto) 28.0 % [place] % (Auto) 9.7 % Eos % (Auto) 1.8 % Baso % (Auto) 0.6 % Neut # (Auto) 2.98 (1.40-6.50) K/uL Lymph # (Auto) 1.39 (1.2-3.4) K/uL [place] # (Auto) 0.48 (0.11-0.59) K/uL Eos # (Auto) 0.09 (0-0.50) K/uL Baso # (Auto) 0.03 (0-0.2) K/uL Immature Gran # (Auto) 0.00 L (0.01-0.20) K/uL Sodium 139 (136-145) mmol/L Potassium 3.8 (3.5-5.1) mmol/L Chloride 103 (98-107) mmol/L Carbon Dioxide 27 (21-32) mmol/L Anion Gap 9 (3-11) BUN 14 (6-23) mg/dl Creatinine 0.60 (0.6-1.2) mg/dl Est Cr Clr Drug Dosing 75.9 ml/min Est GFR ( Amer) 112.4 ml/min Est GFR (Non-Af Amer) 97.0 ml/min BUN/Creatinine Ratio 23.3 H (10-20) Glucose 106 H (70-99(Fasting)) mg/dl Estimat Average Glucose mg/dl Hemoglobin A1c (4.5-5.6) % Calcium 9.3 (8.6-10.3) mg/dl Magnesium 1.8 (1.7-2.4) mg/dl Total Bilirubin 0.5 (0.2-1.0) mg/dl AST 20 (13-39) U/L ALT 21 (7-52) U/L Alkaline Phosphatase 55 (34-104) U/L Troponin I High Sens 4.5 (0-14) pg/ml Total Protein 6.7 (6.0-8.3) gm/dl Albumin 4.1 (3.4-5.0) gm/dl Globulin 2.6 (2.5-4.0) gm/dl Albumin/Globulin Ratio 1.6 (0.9-2) TSH (0.300-4.500) uIu/ml Free T4 (0.61-1.60) ng/dl Total T3 Urine Color Urine Appearance (Clear) Urine pH (4.5-7.5) Ur Specific [place] (1.000-1.030) Urine Protein (Negative) Urine Glucose (UA) (Negative) Urine Ketones (Negative) Urine Blood (Negative) Urine Nitrite (Negative) Urine Bilirubin (Negative) Urine Urobilinogen (Negative) Ur Leukocyte Esterase (Negative) Urine WBC (Auto) (0-5) /hpf Urine RBC (Auto) (0-4) /hpf U Hyaline Cast (Auto) (0-5) /lpf U Epithel Cells (Auto) (0-5) /lpf Urine Bacteria (Auto) (Negative) Carbamazepine (4-12) mcg/ml SARS-CoV-2, RNA, NAAT (NEGATIVE) Medications Administered Carbamazepine (Carbamazepine 200 Mg Tablet) 200 mg PO [facility] Stop: 10/27/22 08:59 Last Admin: 09/27/22 08:13 Dose: 200 mg Documented By: ABIEL Enoxaparin Sodium (Enoxaparin Inj 30 Mg/0.3 Ml Syr) 30 mg SQ [facility] Stop: 10/27/22 08:59 Last Admin: 09/27/22 08:14 Dose: Not Given Documented By: ABIEL Levothyroxine Sodium ([facility]othyroxine Sodium 150 Mcg Tablet) [facility]: 10/27/22 06:29 Last Admin: 09/27/22 05:37 Dose: 150 mcg Documented By: LYDIA Montelukast Sodium (Montelukast Sodium 10 Mg Tablet) 10 mg PO [facility] Stop: 10/27/22 08:59 Last Admin: 09/27/22 08:13 Dose: 10 mg Documented By: BAIEL Pantoprazole Sodium ([facility]antoprazole 40 Mg Tab) [facility] Stop: 10/27/22 06:29 Last Admin: 09/27/22 05:37 Dose: 40 mg Documented By: LYDIA Coding Level of Care Code 89276 U Intl Hosp Care Lvl 2 Diagnoses Generalized weakness R53.1 Depressive disorder, not elsewhere classified F32.89
[2022-09-27] MEDS: SIMVASTATIN 20 MG TAB PO SCH (20:14)
[2022-09-28] MEDS: PANTOprazole 40 MG TAB PO SCH (05:36)
[2022-09-28] MEDS: LEVOTHYROXINE SODIUM 125 MCG TABLET PO SCH (05:36)
[2022-09-28] MEDS: buPROPion XL 300 MG TABCR PO SCH (08:24)
[2022-09-28] MEDS: MONTELUKAST SODIUM 10 MG TABLET PO SCH (08:25)
[2022-09-28] MEDS: carBAMazepine 200 MG TABLET PO SCH ×2 (08:25→19:56)
[2022-09-28] MEDS: ENOXAPARIN INJ 30 MG/0.3 ML SYR SQ SCH (08:25)
--- NOTE | 2022-09-28 17:42 | Hospitalist Progress Note ---
Date of Service September 28, 2022 Assessment & Plan (1) Depressive disorder, not elsewhere classified: Plan: Severe depression with weight loss, not suicidal. Cont plan per psych including stopped buspar, taper Wellbutrin. Patient is uncertain why she is on Tegretol so owe are continuing this now. Clinically much better and seems to be improving No acute delirium (2) Weight loss, intentional: Plan: Loss of weight 2/2 severe depression, likely contributing to relative toxicity of current medications. Advised to eat and drink more and participate in physical therapy (3) Hypothyroidism: Plan: Currently hyperthyroid on Synthroid 150mcg daily. No evidence of storm-- no palpitations or cardiac instability. However she does report insomnia and weight loss. Decreased Synthroid to 125mcg daily and thyroid function tests should be repeated in 6-8 weeks. Taper of all medications should help with hot flashes. 125 mcg Synthroid is the replacement dose of hypothyroidism and will continue for now (4) Generalized weakness: Plan: plan as above. Still ambulates independently Clinically getting stronger divided Will need physical therapy to continue (5) Celiac disease: Plan: chronic, stable. gluten free diet Lovenox Full Dispo-to home when improved and meds are successfully tapered. Needs to continue closely with outpatient counselor for depression treatment. Admission and Anticipated Discharge Date Admission Date: September 27, 2022 Subjective 09/28/2022 The patient was seen and examined in medical floor in presence of the family members She has been feeling a little better today Eating almost normally and denies any significant symptoms and participating in the physical therapy She is getting stronger day by day Review of Systems Review of Systems: All systems reviewed and are unremarkable except as noted below Physical Exam Physical Exam: Sitting at the edge of the bed without any acute distress Constitutional: + ill appearing and average body habitus Eyes: PERRL, conjunctivae normal, anicteric sclerae ENMT: external ear and nose normal, oropharynx normal Neck: trachea midline, no thyromegaly Respiratory: no respiratory distress Auscultation: lungs clear to auscultation bilaterally; no crackles Cardiovascular: Rate/Rhythm: regular rate; not tachycardic Heart Sounds: normal S1 and normal S2; no murmur Extremities: no edema Gastrointestinal (Abdomen): Inspection/Auscultation: normal bowel sounds; abdomen not distended Percussion/Palpation: abdomen soft; abdomen nontender Musculoskeletal: No acute arthritis involving any of the joints Neurologic: normal touch/pain/proprioception and moves all extremities; no focal motor deficits Psychiatric: A+Ox3, euthymic affect Lymphatic: no cervical or axillary lymphadenopathy Results & Data Results & Data Vital Signs (Past 12 Hours) Vital Signs Temp Pulse Resp BP Pulse Ox O2 Del Method 09/28/22 16:26 36.6 C 79 18 102/57 L 98 Room Air 09/28/22 08:20 36.5 C 73 18 113/70 98 Room Air Medications Administered Current Inpatient Medications Acetaminophen (Acetaminophen 325 Mg Tab) 650 mg PO Q4H PRN PRN Reason: pain/fever Stop: 10/27/22 01:24 Bupropion HCl (Bupropion Xl 300 Mg Tabcr) 300 mg PO [facility] Stop: 10/28/22 08:59 Last Admin: 09/28/22 08:24 Dose: 300 mg Carbamazepine (Carbamazepine 200 Mg Tablet) 300 mg PO [facility] Stop: 10/27/22 20:59 Last Admin: 09/27/22 20:13 Dose: 300 mg Carbamazepine (Carbamazepine 200 Mg Tablet) 200 mg PO [facility] Stop: 10/27/22 08:59 Last Admin: 09/28/22 08:25 Dose: 200 mg Enoxaparin Sodium (Enoxaparin Inj 30 Mg/0.3 Ml Syr) 30 mg SQ [facility] Stop: 10/27/22 08:59 Last Admin: 09/28/22 08:25 Dose: Not Given Promethazine HCl 6.25 mg/ (Sodium Chloride) 50.25 mls @ 201 mls/hr IV Q6H PRN PRN Reason: Nausea And Vomiting Stop: 10/27/22 01:24 Levothyroxine Sodium ([facility]othyroxine Sodium 125 Mcg Tablet) [facility]: 10/28/22 06:29 Last Admin: 09/28/22 05:36 Dose: 125 mcg Montelukast Sodium (Montelukast Sodium 10 Mg Tablet) 10 mg PO [facility] Stop: 10/27/22 08:59 Last Admin: 09/28/22 08:25 Dose: 10 mg Pantoprazole Sodium (Pantoprazole 40 Mg Tab) [facility] Stop: 10/27/22 06:29 Last Admin: 09/28/22 05:36 Dose: 40 mg Paroxetine HCl (Paroxetine Hcl 20 Mg Tab) 40 mg PO [facility] Stop: 10/28/22 20:59 Simvastatin (Simvastatin 20 Mg Tab) 20 mg PO [facility] Stop: 10/27/22 20:59 Last Admin: 09/27/22 20:14 Dose: 20 mg
[2022-09-28] MEDS: PARoxetine HCL 20 MG TAB PO SCH (19:54)
[2022-09-28] MEDS: SIMVASTATIN 20 MG TAB PO SCH (19:55)
[2022-09-29] MEDS: PANTOprazole 40 MG TAB PO SCH (05:38)
[2022-09-29] MEDS: LEVOTHYROXINE SODIUM 125 MCG TABLET PO SCH (05:38)
[2022-09-29 08:22] LABS: Basophils # (auto) 0.05 K/uL (0-0.2); Basophils % (auto) 0.9 %; Eosinophils # (auto) 0.23 K/uL (0-0.50); Eosinophils % (auto) 4.3 %; Hematocrit (blood only) 31.5 % (37.0-47.0); Hemoglobin 11.1 g/dl (12.0-16.0); Immature Granulocytes # (auto) 0.01 K/uL (0.01-0.20); Immature Granulocytes % (auto) 0.2 %; Lymphocytes # (auto) 2.17 K/uL (1.2-3.4); Lymphocytes % (auto) 40.2 %; Mean Corpuscular Hemoglobin 33.9 pg (25.0-34.0); Mean Corpuscular Hgb Conc 35.2 g/dL (32.0-36.0); Mean Corpuscular Volume 96.3 fL (80.0-100.0); Monocytes # (auto) 0.59 K/uL (0.11-0.59); Monocytes % (auto) 10.9 %; Neutrophils # (auto) 2.35 K/uL (1.40-6.50); Neutrophils % (auto) 43.5 %; Platelet Count 251 K/uL (130-400); RDW Coefficient of Variation 12.3 % (11.5-14.5); RDW Standard Deviation 43.8 fL (36.4-46.3); Red Blood Count 3.27 M/uL (4.20-5.40)
[2022-09-29] MEDS: carBAMazepine 200 MG TABLET PO SCH ×2 (08:23→20:41)
[2022-09-29] MEDS: buPROPion XL 300 MG TABCR PO SCH (08:23)
[2022-09-29] MEDS: ENOXAPARIN INJ 30 MG/0.3 ML SYR SQ SCH ×2 (08:24→08:26)
[2022-09-29] MEDS: MONTELUKAST SODIUM 10 MG TABLET PO SCH (08:24)
[2022-09-29 08:41] LABS: BUN Creatinine Ratio 35.7 (10-20); Calcium 8.9 mg/dl (8.6-10.3); Creatinine Clr Calc Pharmacy 81.3 ml/min; Est GFR (Non-African American) 99.2 ml/min; Potassium 3.6 mmol/L (3.5-5.1)
--- NOTE | 2022-09-29 16:55 | Hospitalist Progress Note ---
Date of Service September 29, 2022 Assessment & Plan (1) Depressive disorder, not elsewhere classified: Plan: Severe depression with weight loss, not suicidal. Cont plan per psych including stopped buspar, taper Wellbutrin. Patient is uncertain why she is on Tegretol so owe are continuing this now. Clinically much better and seems to be improving No acute delirium We will continue current medications as advised (2) Weight loss, intentional: Plan: Loss of weight 2/2 severe depression, likely contributing to relative toxicity of current medications. Advised to eat and drink more and participate in physical therapy She has been trying to eat and drink more (3) Hypothyroidism: Plan: Currently hyperthyroid on Synthroid 150mcg daily. No evidence of storm-- no palpitations or cardiac instability. However she does report insomnia and weight loss. Decreased Synthroid to 125mcg daily and thyroid function tests should be repeated in 6-8 weeks. Taper of all medications should help with hot flashes. 125 mcg Synthroid is the replacement dose of hypothyroidism and will continue for now We will need to check TSH in about 4 to 6 weeks (4) Generalized weakness: Plan: plan as above. Still ambulates independently Clinically getting stronger divided Will need physical therapy to continue (5) Celiac disease: Plan: chronic, stable. gluten free diet Lovenox Full Dispo-to home when improved and meds are successfully tapered. Needs to continue closely with outpatient counselor for depression treatment. Admission and Anticipated Discharge Date Admission Date: September 27, 2022 Subjective 09/28/2022 The patient was seen and examined in medical floor in presence of the family members She has been feeling a little better today Eating almost normally and denies any significant symptoms and participating in the physical therapy She is getting stronger day by day 09/29/2022 The patient was seen and examined in medical floor in presence of the family members She has been stable and pleasantly confused Has weakness but no focality Review of Systems Review of Systems: All systems reviewed and are unremarkable except as noted below Physical Exam Physical Exam: Sitting at the edge of the bed without any acute distress Constitutional: + ill appearing and average body habitus Eyes: PERRL, conjunctivae normal, anicteric sclerae ENMT: external ear and nose normal, oropharynx normal Neck: trachea midline, no thyromegaly Respiratory: no respiratory distress Auscultation: lungs clear to auscultation bilaterally; no crackles Cardiovascular: Rate/Rhythm: regular rate; not tachycardic Heart Sounds: normal S1 and normal S2; no murmur Extremities: no edema Gastrointestinal (Abdomen): Inspection/Auscultation: normal bowel sounds; abdomen not distended Percussion/Palpation: abdomen soft; abdomen nontender Neurologic: normal touch/pain/proprioception and moves all extremities; no focal motor deficits Psychiatric: A+Ox3, euthymic affect Lymphatic: no cervical or axillary lymphadenopathy Results & Data Results & Data Vital Signs (Past 12 Hours) Vital Signs Temp Pulse Resp BP Pulse Ox O2 Del Method 09/29/22 15:22 36.3 C L 94 H 16 103/71 97 Room Air 09/29/22 07:17 36.5 C 80 16 107/64 96 Room Air Laboratory Results Short CBC 09/29/22 Range/Units 07:50 WBC 5.40 (4.8-10.8) K/ul Hgb 11.1 L (12.0-16.0) g/dl Hct 31.5 L (37.0-47.0) % Plt Count 251 (130-400) K/uL BMP 09/29/22 07:50 Sodium 139 Potassium 3.6 Chloride 104 Carbon Dioxide 30 BUN 20 Creatinine 0.56 L Glucose 87 Calcium 8.9 Medications Administered Current Inpatient Medications Acetaminophen (Acetaminophen 325 Mg Tab) 650 mg PO Q4H PRN PRN Reason: pain/fever Stop: 10/27/22 01:24 Bupropion HCl ([facility]ropion Xl 300 Mg Tabcr) [facility] 10/28/22 08:59 Last Admin: 09/29/22 08:23 Dose: 300 mg Carbamazepine (Carbamazepine 200 Mg Tablet) 300 mg PO HS [facility] Stop: 10/27/22 20:59 Last Admin: 09/28/22 19:56 Dose: 300 mg Carbamazepine (Carbamazepine 200 Mg Tablet) 200 mg PO QAM [facility] Stop: 10/27/22 08:59 Last Admin: 09/29/22 08:23 Dose: 200 mg Enoxaparin Sodium (Enoxaparin Inj 30 Mg/0.3 Ml Syr) 30 mg SQ QAM [facility] Stop: 10/27/22 08:59 Last Admin: 09/29/22 08:26 Dose: Not Given Promethazine HCl 6.25 mg/ (Sodium Chloride) 50.25 mls @ 201 mls/hr IV Q6H PRN PRN Reason: Nausea And Vomiting Stop: 10/27/22 01:24 Levothyroxine Sodium (Levothyroxine Sodium 125 Mcg Tablet) [facility] Stop: 10/28/22 06:29 Last Admin: 09/29/22 05:38 Dose: 125 mcg Montelukast Sodium (Montelukast Sodium 10 Mg Tablet) [facility] [place]: 10/27/22 08:59 Last Admin: 09/29/22 08:24 Dose: 10 mg Pantoprazole Sodium (Pantoprazole 40 Mg Tab) [facility] Stop: 10/27/22 06:29 Last Admin: 09/29/22 05:38 Dose: 40 mg Paroxetine HCl (Paroxetine Hcl 20 Mg Tab) [address] [facility] Stop: 10/28/22 20:59 Last Admin: 09/28/22 19:54 Dose: 40 mg Simvastatin (Simvastatin 20 Mg Tab) [address] [facility] Stop: 10/27/22 20:59 Last Admin: 09/28/22 19:55 Dose: 20 mg
[2022-09-29] MEDS: PARoxetine HCL 20 MG TAB PO SCH (20:40)
[2022-09-29] MEDS: SIMVASTATIN 20 MG TAB PO SCH (20:41)
[2022-09-30] MEDS: LEVOTHYROXINE SODIUM 125 MCG TABLET PO SCH (06:02)
[2022-09-30] MEDS: PANTOprazole 40 MG TAB PO SCH (06:02)
[2022-09-30] MEDS: ENOXAPARIN INJ 30 MG/0.3 ML SYR SQ SCH (08:21)
[2022-09-30] MEDS: MONTELUKAST SODIUM 10 MG TABLET PO SCH (08:22)
[2022-09-30] MEDS: buPROPion XL 300 MG TABCR PO SCH (08:22)
[2022-09-30] MEDS: carBAMazepine 200 MG TABLET PO SCH ×2 (08:23→19:44)
--- NOTE | 2022-09-30 17:39 | Hospitalist Progress Note ---
Date of Service September 30, 2022 Assessment & Plan (1) Depressive disorder, not elsewhere classified: Plan: Severe depression with weight loss, not suicidal. Cont plan per psych including stopped buspar, taper Wellbutrin. Patient is uncertain why she is on Tegretol so owe are continuing this now. Clinically much better and seems to be improving No acute delirium We will continue current medications as advised Remains depressed but not in any delirium (2) Weight loss, intentional: Plan: Loss of weight 2/2 severe depression, likely contributing to relative toxicity of current medications. Advised to eat and drink more and participate in physical therapy She has been trying to eat and drink more Has been drinking and eating reasonably (3) Hypothyroidism: Plan: Currently hyperthyroid on Synthroid 150mcg daily. No evidence of storm-- no palpitations or cardiac instability. However she does report insomnia and weight loss. Decreased Synthroid to 125mcg daily and thyroid function tests should be repeated in 6-8 weeks. Taper of all medications should help with hot flashes. 125 mcg Synthroid is the replacement dose of hypothyroidism and will continue for now We will need to check TSH in about 4 to 6 weeks (4) Generalized weakness: Plan: plan as above. Still ambulates independently Clinically getting stronger divided Will need physical therapy to continue Need to continue PT and OT evaluation-recommended home vitamin manager has been working on it (5) Celiac disease: Plan: chronic, stable. gluten free diet Lovenox Full Dispo-to home when improved and meds are successfully tapered. Needs to continue closely with outpatient counselor for depression treatment. Medically stable to be discharged Admission and Anticipated Discharge Date Admission Date: September 27, 2022 Subjective 09/28/2022 The patient was seen and examined in medical floor in presence of the family members She has been feeling a little better today Eating almost normally and denies any significant symptoms and participating in the physical therapy She is getting stronger day by day 09/29/2022 The patient was seen and examined in medical floor in presence of the family members She has been stable and pleasantly confused Has weakness but no focality 09/30/2022 Patient was seen and examined in medical floor in presence of a family member She remains pleasantly confused and cannot remember having any physical therapy Denies any significant symptoms Review of Systems Review of Systems: All systems reviewed and are unremarkable except as noted below Physical Exam Physical Exam: Sitting at the edge of the bed without any acute distress Constitutional: + ill appearing and average body habitus Eyes: PERRL, conjunctivae normal, anicteric sclerae ENMT: external ear and nose normal, oropharynx normal Neck: trachea midline, no thyromegaly Respiratory: no respiratory distress Auscultation: lungs clear to auscultation bilaterally; no crackles Cardiovascular: Rate/Rhythm: regular rate; not tachycardic Heart Sounds: normal S1 and normal S2; no murmur Extremities: no edema Gastrointestinal (Abdomen): Inspection/Auscultation: normal bowel sounds; abdomen not distended Percussion/Palpation: abdomen soft; abdomen nontender Neurologic: normal touch/pain/proprioception and moves all extremities; no focal motor deficits Psychiatric: A+Ox3, euthymic affect Lymphatic: no cervical or axillary lymphadenopathy Results & Data Results & Data Vital Signs (Past 12 Hours) Vital Signs Temp Pulse Resp BP Pulse Ox O2 Del Method 09/30/22 16:11 36.6 C 83 18 96/62 L 100 Room Air 09/30/22 07:20 36.6 C 76 16 104/68 99 Room Air Medications Administered Current Inpatient Medications Acetaminophen (Acetaminophen 325 Mg Tab) 650 mg PO Q4H PRN PRN Reason: pain/fever Stop: 10/27/22 01:24 Bupropion HCl (Bupropion Xl 300 Mg Tabcr) [facility] Stop: 10/28/22 08:59 Last Admin: 09/30/22 08:22 Dose: 300 mg Carbamazepine (Carbamazepine 200 Mg Tablet) 300 mg PO [facility] Stop: 10/27/22 20:59 Last Admin: 09/29/22 20:41 Dose: 300 mg Carbamazepine (Carbamazepine 200 Mg Tablet) 200 [facility] [place] Stop: 10/27/22 08:59 Last Admin: 09/30/22 08:23 Dose: 200 mg Enoxaparin Sodium (Enoxaparin Inj 30 Mg/0.3 Ml Syr) 30 mg SQ [facility] [place] Stop: 10/27/22 08:59 Last Admin: 09/30/22 08:21 Dose: Not Given Promethazine HCl 6.25 mg/ (Sodium Chloride) 50.25 mls @ 201 mls/hr IV Q6H PRN PRN Reason: Nausea And Vomiting Stop: 10/27/22 01:24 Levothyroxine Sodium (Levothyroxine Sodium 125 Mcg Tablet) 125 mcg PO DAILYBB COUNT INCLUDES THE [facility] Stop: 10/28/22 06:29 Last Admin: 09/30/22 06:02 Dose: 125 mcg Montelukast Sodium (Montelukast Sodium 10 Mg Tablet) 10 mg [facility] [place] Stop: 10/27/22 08:59 Last Admin: 09/30/22 08:22 Dose: 10 mg Pantoprazole Sodium (Pantoprazole 40 Mg Tab) 40 mg PO DAILYBB COUNT INCLUDES THE [facility] Stop: 10/27/22 06:29 Last Admin: 09/30/22 06:02 Dose: 40 mg Paroxetine HCl (Paroxetine Hcl 20 Mg Tab) 40 mg PO JASMYN Stop: 10/28/22 20:59 Last Admin: 09/29/22 20:40 Dose: 40 mg Simvastatin (Simvastatin 20 Mg Tab) 20 mg PO [facility] Stop: 10/27/22 20:59 Last Admin: 09/29/22 20:41 Dose: 20 mg
[2022-09-30] MEDS: SIMVASTATIN 20 MG TAB PO SCH (19:44)
[2022-09-30] MEDS: PARoxetine HCL 20 MG TAB PO SCH (19:44)
[2022-10-01] MEDS: PANTOprazole 40 MG TAB PO SCH (05:40)
[2022-10-01] MEDS: LEVOTHYROXINE SODIUM 125 MCG TABLET PO SCH (05:40)
[2022-10-01] MEDS: MONTELUKAST SODIUM 10 MG TABLET PO SCH (08:07)
[2022-10-01] MEDS: buPROPion XL 300 MG TABCR PO SCH (08:07)
[2022-10-01] MEDS: carBAMazepine 200 MG TABLET PO SCH (08:08)
[2022-10-01] MEDS: ENOXAPARIN INJ 30 MG/0.3 ML SYR SQ SCH (08:08)
[2022-10-01] MEDS ORDERED: DOCUSATE SODIUM/SENNA 50/8.6MG TAB PO SCH (09:00)
--- NOTE | 2022-10-01 16:00 | Hospitalist Progress Note ---
Date of Service October 01, 2022 Assessment & Plan (1) Depressive disorder, not elsewhere classified: Plan: Severe depression with weight loss, not suicidal. Cont plan per psych including stopped buspar, taper Wellbutrin. Patient is uncertain why she is on Tegretol so owe are continuing this now. Clinically much better and seems to be improving No acute delirium We will continue current medications as advised Remains depressed but not in any delirium Clinically much better and remains brighter and without any other significant symptoms Will be discharged home today and was advised to give appointment with her psychiatrist (2) Weight loss, intentional: Plan: Loss of weight 2/2 severe depression, likely contributing to relative toxicity of current medications. Advised to eat and drink more and participate in physical therapy She has been trying to eat and drink more Has been drinking and eating reasonably Expected to gain weight with regular diet (3) Hypothyroidism: Plan: Currently hyperthyroid on Synthroid 150mcg daily. No evidence of storm-- no palpitations or cardiac instability. However she does report insomnia and weight loss. Decreased Synthroid to 125mcg daily and thyroid function tests should be repeated in 6-8 weeks. Taper of all medications should help with hot flashes. 125 mcg Synthroid is the replacement dose of hypothyroidism and will continue for now We will need to check TSH in about 4 to 6 weeks (4) Generalized weakness: Plan: plan as above. Still ambulates independently Clinically getting stronger divided Will need physical therapy to continue Need to continue PT and OT evaluation-recommended home partnership marketing manager has been working on it Will be going home with home physical therapy (5) Celiac disease: Plan: chronic, stable. gluten free diet Lovenox Full Dispo-to home when improved and meds are successfully tapered. Needs to continue closely with outpatient counselor for depression treatment. Medically stable to be discharged Admission and Anticipated Discharge Date Admission Date: September 27, 2022 Subjective 09/28/2022 The patient was seen and examined in medical floor in presence of the family members She has been feeling a little better today Eating almost normally and denies any significant symptoms and participating in the physical therapy She is getting stronger day by day 09/29/2022 The patient was seen and examined in medical floor in presence of the family members She has been stable and pleasantly confused Has weakness but no focality 09/30/2022 Patient was seen and examined in medical floor in presence of a family member She remains pleasantly confused and cannot remember having any physical therapy Denies any significant symptoms 10/01/2022 The patient was seen and examined in medical floor She remains stable and waiting to go home Still has weakness but no other significant symptoms and she has been eating and drinking well Review of Systems Review of Systems: All systems reviewed and are unremarkable except as noted below Physical Exam Physical Exam: Sitting at the edge of the bed without any acute distress Constitutional: + ill appearing and average body habitus Eyes: PERRL, conjunctivae normal, anicteric sclerae ENMT: external ear and nose normal, oropharynx normal Neck: trachea midline, no thyromegaly Respiratory: no respiratory distress Auscultation: lungs clear to auscultation bilaterally; no crackles Cardiovascular: Rate/Rhythm: regular rate; not tachycardic Heart Sounds: normal S1 and normal S2; no murmur Extremities: no edema Gastrointestinal (Abdomen): Inspection/Auscultation: normal bowel sounds; abdomen not distended Percussion/Palpation: abdomen soft; abdomen nontender Neurologic: normal touch/pain/proprioception and moves all extremities; no focal motor deficits Psychiatric: A+Ox3, euthymic affect Lymphatic: no cervical or axillary lymphadenopathy Results & Data Results & Data Vital Signs (Past 12 Hours) Vital Signs Temp Pulse Resp BP BP Pulse Ox O2 Del Method 10/01/22 14:16 36.8 C 73 16 105/58 L 99 Room Air 10/01/22 11:31 78 104/67 10/01/22 07:27 36.7 C 73 16 90/60 L 99 Room Air
--- NOTE | 2022-10-08 12:54 | Discharge Summary ---
Date of Service October 01, 2022 Admission HPI Per Admitting Provider History obtained from patient, family, and records. Medical history significant fo for hypothyroidism, hyperlipidemia, anxiety/mood disorder, celiac disease, past tobacco abuse. Last confinement March 2022 for hyponatremia and hypokalemia secondary to poor p.o. intake. Patient noted increased fatigue, motivation following COVID-19 illness in January 2022. Anxiety and depression worse. Denies suicidality. Denies headache, chest pain, shortness of breath, abdominal pain. 60-80 pound weight loss over last 8 months as per family. Symptoms worse after grandchildren moved out of the home a few months ago. Patient seen by [facility] telepsychiatrist via video meeting yesterday. Impression was anxiety and dysthymia. Amotivation was biggest patient concerned as per note. Patient instructed continue Wellbutrin XL in a.m. to help with energy and mood. Paxil to be taken at night as it may contribute to daytime fatigue/sedation. Are increased to 50 mg 3 times daily. Patient told to continue carbamazepine at current doses. Unclear indication for medication for which psychiatrist recommended decreasing dose. CBT therapy recommended. Patient and family unhappy with video meetings with psychiatrist citing lack of personal connection. Family does not feel patient cannot care for herself at home. Patient brought to the ER for evaluation. Medical History as above Surgical History : Laparoscopic biopsy of the ovaries Family History : DM, hypertension, anxiety disorder Personal/Social history : Past tobacco abuse, no EtOH intake, retired [employer] employee Admission Exam Per Admitting Provider Physical Exam: GENERAL: Comfortable, depressed, pleasant, no respiratory distress SKIN: Normal color, warm HEENT: Bespectacled, [place] palpebral conjunctivae, no ptosis, dry buccal mucosa NECK : Supple, no tenderness CHEST : CTA, no tenderness HEART : RRR, no obvious murmurs ABDOMEN: Some distention, nontender EXTREMITIES : No LE swelling/tenderness, no other conspicuous deformities noted NEUROLOGIC : Coherent, no facial asymmetry, no other gross focality Principal Diagnosis Severe depression, hypothyroidism, generalized weakness, celiac disease, unintentional weight loss Discharge Exam Sitting at the edge of the bed without any acute distress Constitutional + ill appearing and average body habitus Eyes PERRL, conjunctivae normal, anicteric sclerae ENMT external ear and nose normal, oropharynx normal Neck trachea midline, no thyromegaly Respiratory no respiratory distress Auscultation: lungs clear to auscultation bilaterally; no crackles Cardiovascular Rate/Rhythm: regular rate; not tachycardic Heart Sounds: normal S1 and normal S2; no murmur Extremities: no edema Gastrointestinal (Abdomen) Inspection/Auscultation: normal bowel sounds; abdomen not distended Percussion/Palpation: abdomen soft; abdomen nontender Neurologic normal touch/pain/proprioception and moves all extremities; no focal motor deficits Psychiatric A+Ox3, euthymic affect Lymphatic no cervical or axillary lymphadenopathy Discharge Data Allergies Allergy/AdvReac Type Severity Reaction Status Date / Time gluten Allergy Intermediate CELIAC Verified 09/26/22 20:25 DISEASE metronidazole Allergy Intermediate RASH Verified 09/26/22 20:25 Consultations 09/26/22 21:27 ED Decision to Admit Stat 09/27/22 00:01 Consult Psychiatry Routine Hospital Course (1) Depressive disorder, not elsewhere classified: Severe depression with weight loss, not suicidal. Cont plan per psych including stopped buspar, taper Wellbutrin. Patient is uncertain why she is on Tegretol so owe are continuing this now. Clinically much better and seems to be improving No acute delirium We will continue current medications as advised Remains depressed but not in any delirium Clinically much better and remains brighter and without any other significant symptoms Will be discharged home today and was advised to give appointment with her psychiatrist (2) Weight loss, intentional: Loss of weight 2/2 severe depression, likely contributing to relative toxicity of current medications. Advised to eat and drink more and participate in physical therapy She has been trying to eat and drink more Has been drinking and eating reasonably Expected to gain weight with regular diet (3) Hypothyroidism: Currently hyperthyroid on Synthroid 150mcg daily. No evidence of storm-- no palpitations or cardiac instability. However she does report insomnia and weight loss. Decreased Synthroid to 125mcg daily and thyroid function tests should be repeated in 6-8 weeks. Taper of all medications should help with hot flashes. 125 mcg Synthroid is the replacement dose of hypothyroidism and will continue for now We will need to check TSH in about 4 to 6 weeks (4) Generalized weakness: plan as above. Still ambulates independently Clinically getting stronger divided Will need physical therapy to continue Need to continue PT and OT evaluation-recommended home gallery manager has been working on it Will be going home with home physical therapy (5) Celiac disease: chronic, stable. gluten free diet Lovenox Full Dispo-to home when improved and meds are successfully tapered. Needs to continue closely with outpatient counselor for depression treatment. Medically stable to be discharged Total Time Total Time Spent Total Time Spent (In Minutes): 35 minutes Discharge Plan Discharge Items Patient Disposition: Home - Self-Care Reason For Visit: WEAKNESS Discharge Diagnosis: Severe depression, hypothyroidism, generalized weakness, celiac disease, unintentional weight loss Condition on Discharge: Good Activity: Resume your previous activity Non-emergency contact: Primary Care Provider Call non-emergency contact if: you have any medication questions and your symptoms worsen Follow-up/Referrals: Dr. Ramírez Jo [Other] - 10/06/22 11:00 am Jameel Marcelo MD [Primary Care Provider] - 10/10/22 2:00 pm (Date & Time 10/07/2022 2:00 PM Provider Jameel Marcelo MD [facility] ) Diet: Regular and Gluten Free Addtl Attending Provider Instructions: Please take precautions to avoid fall Participate in physical therapy Take your medications as advised Try to eat and drink more as advised Keep appointments with your healthcare providers Pending Studies at Discharge: No Stand-Alone Forms: My AudioCaseFiles, Smoking Cessation Medications and DC Order Prescriptions: New sennosides-docusate sodium [Senokot-S] 8.6-50 mg Tablet 1 tab PO QAM 30 Days Qty: 30 0RF levothyroxine [Synthroid] 125 mcg Tablet 125 mcg PO DAILYBB 30 Days Qty: 30 0RF Continued paroxetine HCl 40 mg tablet 40 mg PO DAILY simvastatin 20 mg tablet 20 mg PO HS Qty: 30 carbamazepine 200 mg tablet See Rx Instructions .ROUTE .COMPLEX Rx Instructions: TAKES 200 MG QAM, THEN 300 MG QPM. bupropion HCl 300 mg tablet extended release 24 hr 300 mg PO DAILY Rx Instructions: TOTAL DOSE 450 MG--TAKES WITH 150 MG TAB. pantoprazole 20 mg tablet,delayed release (DR/EC) 20 mg PO DAILYBB montelukast 10 mg tablet 10 mg PO QAM Discontinued levothyroxine 150 mcg tablet 150 mcg PO DAILYBB buspirone 15 mg tablet 15 mg PO TID Rx Instructions: PER PT "NEW ORDER RECENTLY". bupropion HCl 150 mg tablet extended release 24 hr 150 mg PO QAM Rx Instructions: TOTAL DOSE 450 MG--TAKES WITH 300 MG TAB. Discharge Orders: Discharge Order (Routine); Ordered 10/01/22 Ordered By: David Gimenez Admission Data Admit Date/Time: 09/27/22 19:07 Attending Provider: David Gimenez Admit Provider: Rigo Olivarez Primary Care Provider: Jameel Marcelo Other Providers: Rigo Olivarez ; Nicolette Crews ; Gayle Zuluaga ; Steve Wharton ; Bety Davenport Other Interventions: Discharge Summary Assessment (RN) Last Done: 10/01/22 16:51
== END 2022-10-01 17:15 | disposition home or self-care (01) | DRG 885 ==
LOC: ED 18:56 → 3W 18:56 → SUATTDRO 09-27 19:07 → 3W 10-01 09:38

== ENCOUNTER 2022-12-26 08:54 | Inpatient (IN) ==
[2022-12-26] MEDS ORDERED: ACETAMINOPHEN 325 MG TAB PO PRN (10:54)
[2022-12-26] MEDS ORDERED: hydrOXYzine HCl 25 MG TAB PO PRN (10:54)
[2022-12-26] MEDS ORDERED: MAGNESIUM HYDROXIDE SUSP 30 ML UDC PO PRN (10:54)
--- NOTE | 2022-12-26 11:18 | Communication Note ---
Date of Service: December 26, 2022 patient was seen today on inpatient psychiatry unit with recs to taper Tegretol (unless indication identified by primary hospitalist service) to minimize po lypharmacy and any contribution to hyponatremia. Dr. Crews to complete formal consultation tomorrow and likely to discuss Abilify augmentation trial.
--- NOTE | 2022-12-26 14:36 | History & Physical Report ---
Date of Service December 26, 2022 Assessment & Plan (1) Hypotension: (2) Hyponatremia: (3) Adult failure to thrive: (4) Major depress dis, severe: (5) Bipolar disorder: (6) Celiac disease: (7) HLD (hyperlipidemia): (8) Hypothyroidism: Plan Pt is a 62yoF with PMHx of hypothyroidism, hyperlipidemia, anxiety/mood disorder, celiac disease, past tobacco abuse admitted with failure to thrive in the setting of MDD. Hospitalist service consulted about persistent hypotension. Hypotension Noted BP at time of consult was 67/42 Pt asymptomatic, was sleeping, denied symptoms after being upright Transferred to the medical floor with telemetry monitoring for IV fluids In setting of FTT, started on continuous IV fluids. Consider boluses if persistent or symptomatic Hyponatremia NSS, trend FTT Fats And Oils Loader/Nutrition consult Follow CBC, BMP, Mag, Phos Hypothyroidism Continue home levothyroxine HLD Continue home statin Celiac Disease On gluten free diet Mood Management per psychiatry team Continue psychiatric meds as ordered Per psychiatry, does not need 1-1 DVT prophylaxis: LOS anticipated <48hours, encourage ambulation. Consider chemical if stay is longer. CODE STATUS: Full code Diet: Gluten Free Dispo: Discharge back to psychiatry team once hypotension resolves History of Present Illness Chief Complaint: Hypotension Primary Care Provider: Jameel Marcelo MD Pt is a 62yoF with PMHx of hypothyroidism, hyperlipidemia, anxiety/mood disorder, celiac disease, past tobacco abuse admitted with failure to thrive in the setting of MDD. Hospitalist team was consulted about persistent hypotensive readings. Pt denies a Hx of chronically low blood pressure readings, unsure of her typical range at her outpatient visits. States that she was seen last month but "nobody mentioned anything". Denied any symptoms of dizziness, syncope/pre-syncope, SOB, chest pain at rest or with ambulation. Allergies Allergy/AdvReac Type Severity Reaction Status Date / Time gluten Allergy Intermediate CELIAC Verified 09/26/22 20:25 DISEASE metronidazole Allergy Intermediate RASH Verified 09/26/22 20:25 Home Medications Medication Instructions Recorded Confirmed Type simvastatin 20 mg tablet 20 mg PO HS #30 tabs 03/07/19 12/25/22 History carbamazepine 200 mg tablet See Rx Instructions .Route .COMPLEX 01/18/21 12/25/22 History pantoprazole 20 mg tablet,delayed 20 mg PO DAILYBB 09/26/22 12/25/22 History release acetaminophen 325 mg tablet 325 mg PO Q4 PRN Fever Or Pain 12/25/22 12/25/22 Hi story fexofenadine 180 mg tablet 180 mg PO DAILY 12/25/22 12/25/22 History fluticasone propionate See Rx Instructions .Route .COMPLEX 12/25/22 12/25/22 History fluoxetine 20 mg capsule (Prozac) 30 mg PO DAILY #1 cap 12/26/22 12/25/22 Rx levothyroxine 112 mcg tablet 112 mcg PO DAILYBB #1 tab 12/26/22 Rx (Synthroid) lorazepam 0.5 mg tablet 0.5 mg PO DAILY PRN Anxiety 12/26/22 12/26/22 History Past Med/Surg History Medical History Adult celiac disease Bipolar disorder Celiac disease GERD (gastroesophageal reflux disease) GERD (gastroesophageal reflux disease) HLD (hyperlipidemia) Hypokalemia Hyponatremia Hypothyroidism Osteoporosis Secondary hyperparathyroidism Vitamin B12 deficiency Vitamin D deficiency Weakness Weakness Surgical History No pertinent past surgical history Family History Other Family history non-contributory Social History Smoking Status: Former smoker Tobacco Type: Cigarettes Second Hand Exposure: No; Do You Dip or Chew Tobacco: No; Hx Alcohol Use: No Hx Substance Use: No Preferred Language: Portuguese Communication Ability: Effective Activity Specialist Required: No Beliefs That Will Affect Care: None Current Living Situation: Spouse Feels Safe at Home: No Is there a partner from a previous relationship who is making you feel unsafe now?: No Any Concerns about Your Family Situation: No ( FEELS UNSAFE ALONE AT HOME FEELS SAFE WITH ) Would You Like to Speak to Someone About Your Situation: No Safety Concerns: Feels Safe At This Time Gender Identity: Female Assistive Devices: Denture - Upper and Glasses Review of Systems Review of Systems: All systems reviewed & are unremarkable except as noted in HPI & below Physical Exam Physical Exam: General: Alert, oriented. No acute distress Skin: No noted rashes or bruises Neuro: No gross deficits HEENT: NC/AT CV: RRR Resp: Breath sounds clear bilaterally, no increased effort of breathing. Abdomen: Soft, nontender, nondistended. Extremities: No edema in lower extremities bilaterally.
[2022-12-26] MEDS: LORazepam 0.5 MG TAB PO PRN (14:37)
[2022-12-26] MEDS: SODIUM CHLORIDE 0.9% 1000ML 1,000 ML IV SCH ×2 (14:37→21:59)
[2022-12-26] MEDS: SIMVASTATIN 20 MG TAB PO SCH (20:00)
[2022-12-26] MEDS: carBAMazepine 200 MG TABLET PO SCH (20:00)
[2022-12-27] MEDS: SODIUM CHLORIDE 0.9% 1000ML 1,000 ML IV SCH ×2 (05:52→14:04)
[2022-12-27 06:08] LABS: Basophils # (auto) 0.06 K/uL (0-0.2); Eosinophils # (auto) 0.31 K/uL (0-0.50); Eosinophils % (auto) 5.2 %; Hematocrit (blood only) 33.1 % (37.0-47.0); Hemoglobin 11.5 g/dl (12.0-16.0); Immature Granulocytes # (auto) 0.01 K/uL (0.01-0.20); Immature Granulocytes % (auto) 0.2 %; Lymphocytes # (auto) 1.74 K/uL (1.2-3.4); Lymphocytes % (auto) 29.4 %; Mean Corpuscular Hgb Conc 34.7 g/dL (32.0-36.0); Mean Corpuscular Volume 95.1 fL (80.0-100.0); Mean Platelet Volume 10.1 fL (9.4-12.4); Monocytes # (auto) 0.67 K/uL (0.11-0.59); Monocytes % (auto) 11.3 %; Neutrophils # (auto) 3.12 K/uL (1.40-6.50); Neutrophils % (auto) 52.9 %; Platelet Count 250 K/uL (130-400); RDW Coefficient of Variation 11.2 % (11.5-14.5); RDW Standard Deviation 38.9 fL (36.4-46.3); Red Blood Count 3.48 M/uL (4.20-5.40); White Blood Count 5.91 K/ul (4.8-10.8)
[2022-12-27] MEDS ORDERED: LEVOTHYROXINE SODIUM 112 MCG TABLET PO SCH (06:30)
[2022-12-27 06:31] LABS: Calcium 8.7 mg/dl (8.6-10.3); Creatinine Clr Calc Pharmacy 70.1 ml/min; Est GFR (African American) 109.5 ml/min; Est GFR (Non-African American) 94.5 ml/min; Magnesium 1.9 mg/dl (1.7-2.4); Phosphorus 3.5 mg/dl (2.5-4.9); Potassium 4.2 mmol/L (3.5-5.1)
[2022-12-27] MEDS: FLUoxetine HCL 10 MG CAP PO SCH (08:20)
[2022-12-27] MEDS: FEXOFENADINE HCL 180 MG TAB PO SCH (08:20)
[2022-12-27] MEDS: PANTOprazole 40 MG TAB PO SCH (08:20)
--- NOTE | 2022-12-27 08:47 | Hospitalist Progress Note ---
Date of Service December 27, 2022 Assessment & Plan (1) Adult failure to thrive: (2) Hypotension: (3) Hyponatremia: (4) Major depress dis, severe: (5) Bipolar disorder: (6) Celiac disease: (7) HLD (hyperlipidemia): (8) Hypothyroidism: Plan Pt is a 62yoF with PMHx of hypothyroidism, hyperlipidemia, anxiety/mood disorder, celiac disease, past tobacco abuse admitted with failure to thrive in the setting of MDD. Hospitalist service consulted about persistent hypotension. Hypotension Noted BP at time of consult was 67/42, resolved with IVF. BP around low 100s systolic as her baseline per outpatient medical records review. Hyponatremia resolved with IVF and PO intake. FTT Rn Plastics/Nutrition consult Follow CBC, BMP, Mag, Phos Counseling for depression Hypothyroidism chronic, TSH reflects slightly hyperthyroid state which may contribute to insomnia, agitation, etc.. As she lost reportedly 100lbs over the last year, her current levothyroxine dose will be adjusted. Repeat TFTs in 8 weeks and continue to readjust if needed. Will decrease from 125mcg PO daily to 100mcg PO daily. HLD chronic, stable. Continue home statin Celiac Disease chronic, stable. On gluten free diet Depression Management per psychiatry team Continue psychiatric meds as ordered Per psychiatry, does not need 1-1 DVT prophylaxis: SCDs, ambulation CODE STATUS: Full code Diet: Gluten Free Dispo: Discharge back to psychiatry team in am. I spent a total [id number] coordinating, documenting, and providing care for this patient excluding time spent in the performance of separately billed services DO [facility] Hospitalist Admission and Anticipated Discharge Date Admission Date: December 26, 2022 Subjective 62 yo F with failure to thrive 2/2 severe depression. She was admitted to medicine service after having hypotension and low Na. today her BP has stabilized after IVF She denies any symptoms She reports not eating well at home is at bedside and we all reviewed the care plan together Explained that mirtazapine is new and has a side effect of helping to stimulate appetite. Gave some general expectations. Discussed case wt Dr. Crews regarding her being stable for dc when psych bed available. Patient and feel the depression is too severe to return home without inpatient treatment. Review of Systems Review of Systems: All systems were reviewed and negative except as indicated on subjective above. Physical Exam Physical Exam: CONSTITUTIONAL: thin, vitals as above, generally well-appearing, NAD EYES: normal conjunctivae, no scleral icterus, ENT: external ear and nose normal, MMM NECK: trachea midline, RESPIRATORY: clear to auscultation bilaterally, no crackles, rales or wheezes, normal respiratory effort CARDIOVASCULAR: regular rate and rhythm, S1 and 2 heard without murmurs, gallops or rubs, no JVD, no peripheral edema, CHEST: inspection of chest was lexie GASTROINTESTINAL: soft, nontender, ND, no guarding MUSCULOSKELETAL: strength 5/5 throughout, head is normocephalic and atraumatic SKIN: warm and dry NEUROLOGIC: CN 2-12 grossly intact, no sensory deficit, normal cognition, normal speech, no tremor PSYCHIATRIC: alert cooperative and oriented to person, place and time. Euthymic mood, makes good eye contact, language grossly intact, recent and remote memory grossly intact. Results & Data Results & Data Vital Signs (Past 12 Hours) Vital Signs Temp Pulse Pulse Resp BP Pulse Ox O2 Del Method 12/27/22 07:54 36.6 C 80 16 99/60 L 96 Room Air 12/27/22 03:00 36.7 C 63 16 93/54 L 98 Room Air 12/26/22 23:08 68 12/26/22 22:57 36.8 C 66 16 100/66 100 Room Air Laboratory Results Short CBC 12/27/22 Range/Units 05:35 WBC 5.91 (4.8-10.8) K/ul Hgb 11.5 L (12.0-16.0) g/dl Hct 33.1 L (37.0-47.0) % Plt Count 250 (130-400) K/uL BMP 12/27/22 05:35 Sodium 139 Potassium 4.2 Chloride 108 H Carbon Dioxide 28 BUN 13 Creatinine 0.65 Glucose 90 Calcium 8.7 Medications Administered Current Inpatient Medications Acetaminophen (Acetaminophen 325 Mg Tab) 650 mg PO Q4H PRN PRN Reason: Pain Stop: 01/25/23 10:53 Carbamazepine (Carbamazepine 200 Mg Tablet) 300 mg PO QPM JASMYN Stop: 01/25/23 20:59 Last Admin: 12/26/22 20:00 Dose: 300 mg Fexofenadine HCl (Fexofenadine Hcl 180 Mg Tab) 180 mg PO QAM JASMYN Stop: 01/26/23 08:59 Last Admin: 12/27/22 08:20 Dose: 180 mg Fluoxetine HCl (Fluoxetine Hcl 10 Mg Cap) 30 mg PO DAILY JASMYN Stop: 01/26/23 08:59 Last Admin: 12/27/22 08:20 Dose: 30 mg Hydroxyzine HCl (Hydroxyzine Hcl 25 Mg Tab) 50 mg PO HS PRN PRN Reason: Anxiety/Insomnia Stop: 01/25/23 10:53 Sodium Chloride (Nss 1000ml) 1,000 mls @ 125 mls/hr IV .Q8H JASMYN Stop: 01/25/23 10:53 Last Admin: 12/27/22 05:52 Dose: 125 mls/hr Levothyroxine Sodium (Levothyroxine Sodium 112 Mcg Tablet) 112 mcg PO DAILYBB JASMYN Stop: 01/26/23 06:29 Last Admin: 12/27/22 05:53 Dose: 112 mcg Lorazepam (Lorazepam 0.5 Mg Tab) 0.5 mg PO Q4H PRN PRN Reason: Anxiety Stop: 01/25/23 10:53 Last Admin: 12/26/22 14:37 Dose: 0.5 mg Magnesium Hydroxide (Magnesium Hydroxide Susp 30 Ml Udc) 30 ml PO Q6H PRN PRN Reason: Dyspepsia Stop: 01/25/23 10:53 Pantoprazole Sodium (Pantoprazole 40 Mg Tab) 40 mg PO QAM JASMYN Stop: 01/26/23 08:59 Last Admin: 12/27/22 08:20 Dose: 40 mg Simvastatin (Simvastatin 20 Mg Tab) 20 mg PO PM JASMYN Stop: 01/25/23 20:59 Last Admin: 12/26/22 20:00 Dose: 20 mg
[2022-12-27] MEDS: LORazepam 0.5 MG TAB PO PRN ×2 (11:23→20:26)
[2022-12-27] MEDS ORDERED: POLYETHYLENE (MIRALAX) 17 GM PACK PO PRN (11:57)
--- NOTE | 2022-12-27 11:59 | Psychiatric Consultation ---
Date of Consultation December 27, 2022 Impression / Recommendations Impression Diagnostically consistent with likely major depressive episode with poor appetite, poor sleep, anhedonia, low energy and decreased motivation.No current evidence for eating disorder component but continue to explore given reported 90 lbs weight loss over the last few months. She is tolerating titration of fluoxetine but continues to have very low appetite and poor sleep. Discussed medication treatment options in detail. Discussed risks, benefits and alternatives. Patient would like to start and consented to mirtazapine for depression augmentation and help with appetite and sleep. Reviewed side effects including but not limited to: sedation, increased appetite, potential effects on hyponatemia (though improved after IVF). Once medically stable will likely plan for inpatient psychiatric treatment as terrence ruiz patient. (1) Major depress dis, severe: (2) Hypotension: (3) Anxiety: (4) Weight loss: Plan -Continue fluoxetine 30mg daily -Continue Tegretol 300mg qPM for now (plan to taper) -Start mirtazapine 15mg HS. Psych History Identifying Data 62 yo woman who lives in [place] with a history of Celiac disease, Luis's thyroiditis, failure to thrive and major depression admitted medically for low blood pressure. Psychiatry consulted for recommendations and treatment for depression. Chief Complaint "I'm ok". History of Present Illness Gloria was transferred to the medical floor yesterday from inpatient psychiatry due to low BP and need for IV fluids and monitoring. Today reports she feels ok, still receiving po fluids and with low appetite and poor sleep. Denies SI but struggling to function outside of the hospital. She thinks the fluoxetine may be helping a little but but has only been on this for about one month with gradual dose titration. Further recent history per H&P by Dr. Zuluaga on 12/26/2022: "Patient was directed to ED yesterday by outpatient therapist, reportedly as no progress with outpatient care. Patient continues to report low energy, low motivation toward any activities, has barely left home in past year. History of 90 lb weight loss but reportedly "forcing" self to eat/drink three times a day. Suicidal thoughts were denied. Patient was seen on consult service during recent medical hospitalization for weakness. At that time she was taking Paxil, Tegretol (unclear indication, denied seizures or bipolar), Buspar and high dose Wellbutrin 450 mg. Wellbutrin was tapered due to concerns may be contributing to low appetite and was essentially ineffective. She also has mild hyponatremia (Tegretol and Paxil could contribute). Patient has since started seeing Dr. Aragon at [facility] and is now taking Prozac (increase to 30 mg last week) and Ativan prn, unclear how often is taken." Allergies Allergy/AdvReac Type Severity Reaction Status Date / Time gluten Allergy Intermediate CELIAC Verified 09/26/22 20:25 DISEASE metronidazole Allergy Intermediate RASH Verified 09/26/22 20:25 Home Medications Medication Instructions Recorded Confirmed Type simvastatin 20 mg tablet 20 mg PO HS #30 tabs 03/07/19 12/27/22 History carbamazepine 200 mg tablet See Rx Instructions .Route .COMPLEX 01/18/21 12/27/22 History pantoprazole 20 mg tablet,delayed 20 mg PO DAILYBB 09/26/22 12/27/22 History release acetaminophen 325 mg tablet 0 mg PO Q4 PRN Fever Or Pain 12/25/22 12/25/22 History fexofenadine 180 mg tablet 0 mg PO DAILY 12/25/22 12/25/22 History fluticasone propionate See Rx Instructions .Route .COMPLEX 12/25/22 12/25/22 History fluoxetine 20 mg capsule (Prozac) 30 mg PO DAILY #1 cap 12/26/22 12/27/22 Rx lorazepam 0.5 mg tablet 0.5 mg PO DAILY PRN Anxiety 12/26/22 12/27/22 History bupropion HCl 150 mg 24 hr tablet, 150 mg PO DAILY 12/27/22 12/27/22 History extended release fluoxetine 10 mg capsule 10 mg PO DAILY 12/27/22 12/27/22 History levothyroxine 125 mcg tablet 125 mcg PO QAM 12/27/22 12/27/22 History paroxetine HCl 30 mg tablet 30 mg PO DAILY 12/27/22 12/27/22 History propranolol 20 mg tablet 20 mg PO BID PRN Anxiety 12/27/22 12/27/22 History Patient History Medical History Adult celiac disease Bipolar disorder Celiac disease GERD (gastroesophageal reflux disease) GERD (gastroesophageal reflux disease) HLD (hyperlipidemia) Hypokalemia Hyponatremia Hypothyroidism Osteoporosis Secondary hyperparathyroidism Vitamin B12 deficiency Vitamin D deficiency Weakness Weakness Surgical History No pertinent past surgical history Family History Other Family history non-contributory Social History Smoking Status: Former smoker Tobacco Type: Cigarettes Second Hand Exposure: No; Do You Dip or Chew Tobacco: No; Hx Alcohol Use: No Hx Substance Use: No Preferred Language: Chinese Communication Ability: Effective Color Checker Roving Or Yarn Required: No Beliefs That Will Affect Care: None Current Living Situation: Spouse Feels Safe at Home: No Is there a partner from a previous relationship who is making you feel unsafe now?: No Any Concerns about Your Family Situation: No ( FEELS UNSAFE ALONE AT HOME FEELS SAFE WITH ) Would You Like to Speak to Someone About Your Situation: No Safety Concerns: Feels Safe At This Time Gender Identity: Female Assistive Devices: Denture - Upper and Glasses Physical Exam Psychiatric: Orientation: alert and oriented x 3 Apperance: appropriately dressed and appropriately groomed Eye Contact: + fair eye contact Motor Behavior: no abnormal motor movements Speech: + abnormal rate/rhythm/volume of speech (slow, soft) Affect: + depressed affect Mood: + depressed mood Thought Process: + concrete thought process Thought Content: reality based without delusions Suicidal Thoughts: denies suicidal thoughts Homicidal Thoughts: denies homicidal thoughts Hallucinations: no auditory hallucinations and no visual hallucinations Cognition: attention grossly intact and language grossly intact Estimated Intelligence: consistent with education level Insight: + limited insight Judgment: + limited judgement Vital Signs (Past 24 Hours): Last Vital Signs Temp 36.4 C L 12/27/22 11:58 Pulse 62 12/27/22 11:58 Resp 16 12/27/22 11:58 BP 93/58 L 12/27/22 11:58 Pulse Ox 100 12/27/22 11:58 O2 Del Method Room Air 12/27/22 11:58 Review of Systems All systems reviewed & are unremarkable except as noted in HPI & below Results & Data (PSY) Laboratory Results Na+ improved Medications Administered Carbamazepine (Carbamazepine 200 Mg Tablet) 300 mg PO QPM JASMYN Stop: 01/25/23 20:59 Last Admin: 12/26/22 20:00 Dose: 300 mg Documented By: LL Fexofenadine HCl (Fexofenadine Hcl 180 Mg Tab) 180 mg PO QAM JASMYN Stop: 01/26/23 08:59 Last Admin: 12/27/22 08:20 Dose: 180 mg Documented By: PEPPER Fluoxetine HCl (Fluoxetine Hcl 10 Mg Cap) 30 mg PO DAILY JASMYN Stop: 01/26/23 08:59 Last Admin: 12/27/22 08:20 Dose: 30 mg Documented By: PEPPER Sodium Chloride (Nss 1000ml) 1,000 mls @ 125 mls/hr IV .Q8H JASMYN Stop: 01/25/23 10:53 Last Admin: 12/27/22 05:52 Dose: 125 mls/hr Documented By: Infusion: 12/27/22 05:52 Dose: 125 mls/hr Documented By: Admin: 12/26/22 21:59 Dose: 125 mls/hr Documented By: Infusion: 12/26/22 21:59 Dose: 125 mls/hr Documented By: Admin: 12/26/22 14:37 Dose: 125 mls/hr Documented By: EDD Levothyroxine Sodium (Levothyroxine Sodium 112 Mcg Tablet) 112 mcg PO DAILYBB JASMYN Stop: 01/26/23 06:29 Last Admin: 12/27/22 05:53 Dose: 112 mcg Documented By: MATT Lorazepam (Lorazepam 0.5 Mg Tab) 0.5 mg PO Q4H PRN PRN Reason: Anxiety Stop: 01/25/23 10:53 Last Admin: 12/27/22 11:23 Dose: 0.5 mg Documented By: Admin: 12/26/22 14:37 Dose: 0.5 mg Documented By: EDD Pantoprazole Sodium (Pantoprazole 40 Mg Tab) 40 mg PO QAM JASMYN Stop: 01/26/23 08:59 Last Admin: 12/27/22 08:20 Dose: 40 mg Documented By: PEPPER Simvastatin (Simvastatin 20 Mg Tab) 20 mg PO PM JASMYN Stop: 01/25/23 20:59 Last Admin: 12/26/22 20:00 Dose: 20 mg Documented By: MATT Coding Level of Care Code 92855 IN/OBS CONSULT LVL 4,60M Diagnoses Major depress dis, severe F32.2 Hypotension I95.9 Anxiety F41.9 Weight loss R63.4 Time Spent (min) 65
[2022-12-27] MEDS: SACCHAROMYCES BOULARDII 250 MG CAP PO SCH (14:03)
[2022-12-27] MEDS: carBAMazepine 200 MG TABLET PO SCH (20:26)
[2022-12-27] MEDS: SIMVASTATIN 20 MG TAB PO SCH (20:27)
[2022-12-27] MEDS: MIRTAZAPINE TAB 15 MG TAB PO SCH (20:27)
[2022-12-28] MEDS: LEVOTHYROXINE SODIUM 100 MCG TABLET PO SCH (06:17)
[2022-12-28] MEDS: SACCHAROMYCES BOULARDII 250 MG CAP PO SCH (07:34)
[2022-12-28] MEDS: FLUoxetine HCL 10 MG CAP PO SCH (07:34)
[2022-12-28] MEDS: FEXOFENADINE HCL 180 MG TAB PO SCH (07:34)
[2022-12-28] MEDS: PANTOprazole 40 MG TAB PO SCH (07:34)
[2022-12-28] MEDS: PSYLLIUM or GUAR GUM FIBER POWDER PACKET PO SCH (07:34)
--- NOTE | 2022-12-28 09:37 | Hospitalist Progress Note ---
Date of Service December 28, 2022 Assessment & Plan (1) Adult failure to thrive: (2) Hypotension: (3) Hyponatremia: (4) Major depress dis, severe: (5) Bipolar disorder: (6) Celiac disease: (7) HLD (hyperlipidemia): (8) Hypothyroidism: Plan Pt is a 62yoF with PMHx of hypothyroidism, hyperlipidemia, anxiety/mood disorder, celiac disease, past tobacco abuse admitted with failure to thrive in the setting of MDD. Hospitalist service consulted about persistent hypotension. Hypotension Noted BP at time of consult was 67/42, resolved with IVF. BP around low 100s systolic as her baseline per outpatient medical records review. currently stable around her baseline. Hyponatremia resolved with IVF and PO intake. FTT Flower Grader/Nutrition consult Follow CBC, BMP, Mag, Phos Counseling for depression Hypothyroidism chronic, TSH reflects slightly hyperthyroid state which may contribute to insomnia, agitation, etc.. As she lost reportedly 100lbs over the last year, her current levothyroxine dose will be adjusted. Repeat TFTs in 8 weeks and continue to readjust if needed. Will decrease from 125mcg PO daily to 100mcg PO daily. HLD chronic, stable. Continue home statin Celiac Disease chronic, stable. On gluten free diet Depression Management per psychiatry team Continue psychiatric meds as ordered Per psychiatry, does not need 1-1 DVT prophylaxis: SCDs, ambulation CODE STATUS: Full code Diet: Gluten Free Dispo: Discharge back to psychiatry team in am. I spent a total [id number] coordinating, documenting, and providing care for this patient excluding time spent in the performance of separately billed services Bety Davenport DO [facility] Hospitalist Admission and Anticipated Discharge Date Admission Date: December 26, 2022 Subjective 62 yo F with failure to thrive 2/2 severe depression. She was admitted to medicine service after having hypotension and low Na. BP remains stable. She is feeling better Multiple questions about medications which were reviewed with her, both inpatient and outpatient lists. We discussed in detail that her levothyroxine was decreased to 100mcg PO daily and why She verbalized understanding She then asked why her hands and feet were cold She expressed being nervous about going to the facility. Review of Systems Review of Systems: All systems were reviewed and negative except as indicated on subjective above. Physical Exam Physical Exam: CONSTITUTIONAL: thin, vitals as above, generally well-appearing, NAD EYES: normal conjunctivae, no scleral icterus, ENT: external ear and nose normal, MMM NECK: trachea midline, RESPIRATORY: clear to auscultation bilaterally, no crackles, rales or wheezes, normal respiratory effort CARDIOVASCULAR: regular rate and rhythm, S1 and 2 heard without murmurs, gallops or rubs, no JVD, no peripheral edema, CHEST: inspection of chest was lexie GASTROINTESTINAL: soft, nontender, ND, no guarding MUSCULOSKELETAL: strength 5/5 throughout, head is normocephalic and atraumatic SKIN: warm and dry NEUROLOGIC: CN 2-12 grossly intact, no sensory deficit, normal cognition, normal speech, no tremor PSYCHIATRIC: alert cooperative and oriented to person, place and time. Euthymic mood, makes good eye contact, language grossly intact, recent and remote memory grossly intact. Results & Data Results & Data Vital Signs (Past 12 Hours) Vital Signs Temp Pulse Resp BP Pulse Ox O2 Del Method 12/28/22 07:45 36.5 C 72 16 100/68 99 Room Air 12/27/22 22:43 36.7 C 55 L 18 133/57 L 98 Room Air Medications Administered Current Inpatient Medications Acetaminophen (Acetaminophen 325 Mg Tab) 650 mg PO Q4H PRN PRN Reason: Pain Stop: 01/25/23 10:53 Carbamazepine (Carbamazepine 200 Mg Tablet) 300 mg PO QPM JASMYN Stop: 01/25/23 20:59 Last Admin: 12/27/22 20:26 Dose: 300 mg Fexofenadine HCl (Fexofenadine Hcl 180 Mg Tab) 180 mg PO QAM JASMYN Stop: 01/26/23 08:59 Last Admin: 12/28/22 07:34 Dose: 180 mg Fluoxetine HCl (Fluoxetine Hcl 10 Mg Cap) 30 mg PO DAILY JASMYN Stop: 01/26/23 08:59 Last Admin: 12/28/22 07:34 Dose: 30 mg Hydroxyzine HCl (Hydroxyzine Hcl 25 Mg Tab) 50 mg PO HS PRN PRN Reason: Anxiety/Insomnia Stop: 01/25/23 10:53 Levothyroxine Sodium (Levothyroxine Sodium 100 Mcg Tablet) 100 mcg PO DAILYBB JASMYN Stop: 01/27/23 06:29 Last Admin: 12/28/22 06:17 Dose: 100 mcg Lorazepam (Lorazepam 0.5 Mg Tab) 0.5 mg PO Q4H PRN PRN Reason: Anxiety Stop: 01/25/23 10:53 Last Admin: 12/27/22 20:26 Dose: 0.5 mg Magnesium Hydroxide (Magnesium Hydroxide Susp 30 Ml Udc) 30 ml PO Q6H PRN PRN Reason: Dyspepsia Stop: 01/25/23 10:53 Mirtazapine (Mirtazapine Tab 15 Mg Tab) 15 mg PO HS JASMYN Stop: 01/26/23 20:59 Last Admin: 12/27/22 20:27 Dose: 15 mg Pantoprazole Sodium (Pantoprazole 40 Mg Tab) 40 mg PO QAM JASMYN Stop: 01/26/23 08:59 Last Admin: 12/28/22 07:34 Dose: 40 mg Polyethylene Glycol (Polyethylene (Miralax) 17 Gm Pack) 17 gm PO DAILY PRN PRN Reason: Constipation Stop: 01/26/23 11:56 Psyllium Hydrophilic Mucilloid (Psyllium Or Guar Gum Fiber Powder Packet) 1 pkt PO QAM JASMYN Stop: 01/27/23 08:59 Last Admin: 12/28/22 07:34 Dose: 1 pkt Saccharomyces Boulardii (Saccharomyces Boulardii 250 Mg Cap) 250 mg PO DAILY JASMYN Stop: 01/26/23 12:29 Last Admin: 12/28/22 07:34 Dose: 250 mg Simvastatin (Simvastatin 20 Mg Tab) 20 mg PO PM JASMYN Stop: 01/25/23 20:59 Last Admin: 12/27/22 20:27 Dose: 20 mg
[2022-12-28] MEDS: LORazepam 0.5 MG TAB PO PRN ×2 (11:56→20:07)
--- NOTE | 2022-12-28 12:12 | Psychiatric Progress Note ---
Date of Service December 28, 2022 Impression / Recommendations Impression Diagnostically consistent with likely major depressive episode with poor appetite, poor sleep, anhedonia, low energy and decreased motivation.No current evidence for eating disorder component but continue to explore given reported 90 lbs weight loss over the last few months. She is tolerating titration of fluoxetine but continues to have very low appetite and poor sleep. 12/28/2022: Remains very depressed. Medically stable for inpatient psychiatric treatment. Tolerating addition of mirtazapine. Bed search in progress as insurance is out of network for [facility] and she prefers to find an in-network facility. (1) Major depress dis, severe: (2) Hypotension: (3) Anxiety: (4) Weight loss: Plan -Continue fluoxetine 30mg daily -Continue Tegretol 300mg qPM for now (plan to taper) -Continue mirtazapine 15mg HS -Psychiatric bed search via psych liason for voluntary treatment for depression Interval History Identifying Information 62 yo woman who lives in [place] with a history of Celiac disease, Luis's thyroiditis, failure to thrive and major depression admitted medically for low blood pressure. Psychiatry consulted for recommendations and treatment for depression. Chief Complaint "I'm ok". Review of Systems Notes sleeping and eating Subjective Subjective Patient was seen & assessed and interval progress reviewed. Slept better with mirtazapine, ate breakfast, denies any side effects. Mood remains depressed. Now medically stable and awaiting inpatient psychiatric treatment. Physical Exam Psychiatric Orientation: alert and oriented x 3 Apperance: appropriately dressed and appropriately groomed Eye Contact: + fair eye contact Motor Behavior: no abnormal motor movements Speech: + abnormal rate/rhythm/volume of speech (slow, soft) Affect: + depressed affect Mood: + depressed mood Thought Process: + concrete thought process Thought Content: reality based without delusions Suicidal Thoughts: denies suicidal thoughts Homicidal Thoughts: denies homicidal thoughts Hallucinations: no auditory hallucinations and no visual hallucinations Cognition: attention grossly intact and language grossly intact Estimated Intelligence: consistent with education level Insight: + limited insight Judgment: + limited judgement Vital Signs (Past 24 Hours) Last Vital Signs Temp 36.5 C 12/28/22 07:45 Pulse 72 12/28/22 07:45 Resp 16 12/28/22 07:45 BP 100/68 12/28/22 07:45 Pulse Ox 99 12/28/22 07:45 O2 Del Method Room Air 12/28/22 07:45 Results & Data ([facility]) Current Inpatient Medications Current Inpatient Medications: Current Inpatient Medications Acetaminophen (Acetaminophen 325 Mg Tab) 650 mg PO Q4H PRN PRN Reason: Pain Stop: 01/25/23 10:53 Carbamazepine (Carbamazepine 200 Mg Tablet) 300 mg PO QPM JASMYN Stop: 01/25/23 20:59 Last Admin: 12/27/22 20:26 Dose: 300 mg Fexofenadine HCl (Fexofenadine Hcl 180 Mg Tab) 180 mg PO QAM JASMYN Stop: 01/26/23 08:59 Last Admin: 12/28/22 07:34 Dose: 180 mg Fluoxetine HCl (Fluoxetine Hcl 10 Mg Cap) 30 mg PO DAILY JASMYN Stop: 01/26/23 08:59 Last Admin: 12/28/22 07:34 Dose: 30 mg Hydroxyzine HCl (Hydroxyzine Hcl 25 Mg Tab) 50 mg PO HS PRN PRN Reason: Anxiety/Insomnia Stop: 01/25/23 10:53 Levothyroxine Sodium (Levothyroxine Sodium 100 Mcg Tablet) 100 mcg PO DAILYBB JASMYN Stop: 01/27/23 06:29 Last Admin: 12/28/22 06:17 Dose: 100 mcg Lorazepam (Lorazepam 0.5 Mg Tab) 0.5 mg PO Q4H PRN PRN Reason: Anxiety Stop: 01/25/23 10:53 Last Admin: 12/28/22 11:56 Dose: 0.5 mg Magnesium Hydroxide (Magnesium Hydroxide Susp 30 Ml Udc) 30 ml PO Q6H PRN PRN Reason: Dyspepsia Stop: 01/25/23 10:53 Mirtazapine (Mirtazapine Tab 15 Mg Tab) 15 mg PO HS JASMYN Stop: 01/26/23 20:59 Last Admin: 12/27/22 20:27 Dose: 15 mg Pantoprazole Sodium (Pantoprazole 40 Mg Tab) 40 mg PO QAM JASMYN Stop: 01/26/23 08:59 Last Admin: 12/28/22 07:34 Dose: 40 mg Polyethylene Glycol (Polyethylene (Miralax) 17 Gm Pack) 17 gm PO DAILY PRN PRN Reason: Constipation Stop: 01/26/23 11:56 Psyllium Hydrophilic Mucilloid (Psyllium Or Guar Gum Fiber Powder Packet) 1 pkt PO QAM AJSMYN Stop: 08/22/23 08:59 Last Admin: 12/28/22 07:34 Dose: 1 pkt Saccharomyces Boulardii (Saccharomyces Boulardii 250 Mg Cap) 250 mg PO DAILY [facility] Stop: 01/26/23 12:29 Last Admin: 12/28/22 07:34 Dose: 250 mg Simvastatin (Simvastatin 20 Mg Tab) 20 mg PO PM [facility] Stop: 01/25/23 20:59 Last Admin: 12/27/22 20:27 Dose: 20 mg
[2022-12-28] MEDS: MIRTAZAPINE TAB 15 MG TAB PO SCH (20:05)
[2022-12-28] MEDS: SIMVASTATIN 20 MG TAB PO SCH (20:05)
[2022-12-28] MEDS: carBAMazepine 200 MG TABLET PO SCH (20:05)
[2022-12-29] MEDS: LEVOTHYROXINE SODIUM 100 MCG TABLET PO SCH (06:18)
[2022-12-29] MEDS: SACCHAROMYCES BOULARDII 250 MG CAP PO SCH (08:14)
[2022-12-29] MEDS: PSYLLIUM or GUAR GUM FIBER POWDER PACKET PO SCH (08:14)
[2022-12-29] MEDS: PANTOprazole 40 MG TAB PO SCH (08:14)
[2022-12-29] MEDS: FLUoxetine HCL 10 MG CAP PO SCH (08:14)
[2022-12-29] MEDS: FEXOFENADINE HCL 180 MG TAB PO SCH (08:14)
[2022-12-29] MEDS: LORazepam 0.5 MG TAB PO PRN (13:54)
--- NOTE | 2022-12-29 15:22 | Hospitalist Progress Note ---
Date of Service December 29, 2022 Assessment & Plan (1) Adult failure to thrive: (2) Hypotension: (3) Hyponatremia: (4) Major depress dis, severe: (5) Bipolar disorder: (6) Celiac disease: (7) HLD (hyperlipidemia): (8) Hypothyroidism: Plan 62yoF with PMHx of hypothyroidism, hyperlipidemia, anxiety/mood disorder, celiac disease, past tobacco abuse admitted with failure to thrive in the setting of MDD. Hospitalist service consulted about persistent hypotension. Hypotension Noted BP at time of consult was 67/42, resolved with IVF. BP around low 100s systolic as her baseline per outpatient medical records review. currently SBPs in 90s to 80s. Get orthostatics. Can use compression stockings, encourage protein intake in diet. Hyponatremia: resolved with IVF and PO intake. FTT Object Oriented Developer/Nutrition consult Follow CBC, BMP, Mag, Phos Counseling for depression Hypothyroidism chronic, TSH reflects slightly hyperthyroid state which may contribute to insomnia, agitation, etc.. As she lost reportedly 100lbs over the last year, her current levothyroxine dose will be adjusted. Repeat TFTs in 8 weeks and continue to readjust if needed. Will decrease from 125mcg PO daily to 100mcg PO daily. HLD: chronic, stable. Continue home statin Celiac Disease: chronic, stable. On gluten free diet Depression Management per psychiatry team Continue psychiatric meds as ordered Per psychiatry, does not need 1-1 Plan for inpatient psychiatric treatment. DVT prophylaxis: SCDs, ambulation CODE STATUS: Full code Diet: Gluten Free Dispo: Discharge back to psychiatry team when accepted by insurance. Admission and Anticipated Discharge Date Admission Date: December 26, 2022 Subjective 62 yo F with failure to thrive 2/2 severe depression. She was admitted to medicine service after having hypotension and low Na. Patient sitting up in bed, calling her insurance for inpatient psychiatry coverage questions, visibly upset because she is not getting placement for her psychiatric treatment. at bedside. Of note, prior attending discussed in detail that her levothyroxine was decreased to 100mcg PO daily and why Physical Exam Physical Exam: CONSTITUTIONAL: thin, vitals as above, generally well-appearing, NAD EYES: normal conjunctivae, no scleral icterus, ENT: external ear and nose normal, MMM NECK: trachea midline, RESPIRATORY: clear to auscultation bilaterally, no crackles, rales or wheezes, normal respiratory effort CARDIOVASCULAR: regular rate and rhythm, S1 and 2 heard without murmurs, gallops or rubs, no JVD, no peripheral edema, CHEST: inspection of chest was lexie GASTROINTESTINAL: soft, nontender, ND, no guarding MUSCULOSKELETAL: strength 5/5 throughout, head is normocephalic and atraumatic SKIN: warm and dry NEUROLOGIC: CN 2-12 grossly intact, no sensory deficit, normal cognition, normal speech, no tremor PSYCHIATRIC: alert cooperative and oriented to person, place and time. Euthymic mood, makes good eye contact, language grossly intact, recent and remote memory grossly intact. Results & Data Results & Data Vital Signs (Past 12 Hours) Vital Signs Temp Pulse Resp BP Pulse Ox O2 Del Method 12/29/22 15:00 36.7 C 72 18 80/50 L 99 Room Air 12/29/22 11:00 36.8 C 66 18 95/60 L 99 Room Air 12/29/22 07:00 36.6 C 61 18 93/56 L 91 Room Air
--- NOTE | 2022-12-29 16:45 | Discharge Summary ---
Date of Service December 29, 2022 Admission HPI Per Admitting Provider Pt is a 62yoF with PMHx of hypothyroidism, hyperlipidemia, anxiety/mood disorder, celiac disease, past tobacco abuse admitted with failure to thrive in the setting of MDD. Hospitalist team was consulted about persistent hypotensive readings. Pt denies a Hx of chronically low blood pressure readings, unsure of her typical range at her outpatient visits. States that she was seen last month but "nobody mentioned anything". Denied any symptoms of dizziness, syncope/pre-syncope, SOB, chest pain at rest or with ambulation. Admission Exam Per Admitting Provider General: Alert, oriented. No acute distress Skin: No noted rashes or bruises Neuro: No gross deficits HEENT: NC/AT CV: RRR Resp: Breath sounds clear bilaterally, no increased effort of breathing. Abdomen: Soft, nontender, nondistended. Extremities: No edema in lower extremities bilaterally. Principal Diagnosis Hypotension likely secondary to poor appetite emanating from her untreated depression Hyponatremia and failure to thrive secondary to major depressive disorder Discharge Exam CONSTITUTIONAL: thin, vitals as above, generally well-appearing, NAD EYES: normal conjunctivae, no scleral icterus, ENT: external ear and nose normal, MMM NECK: trachea midline, RESPIRATORY: clear to auscultation bilaterally, no crackles, rales or wheezes, normal respiratory effort CARDIOVASCULAR: regular rate and rhythm, S1 and 2 heard without murmurs, gallops or rubs, no JVD, no peripheral edema, CHEST: inspection of chest was lexie GASTROINTESTINAL: soft, nontender, ND, no guarding MUSCULOSKELETAL: strength 5/5 throughout, head is normocephalic and atraumatic SKIN: warm and dry NEUROLOGIC: CN 2-12 grossly intact, no sensory deficit, normal cognition, normal speech, no tremor PSYCHIATRIC: alert cooperative and oriented to person, place and time. Euthymic mood, makes good eye contact, language grossly intact, recent and remote memory grossly intact. Discharge Data Allergies Allergy/AdvReac Type Severity Reaction Status Date / Time gluten Allergy Intermediate CELIAC Verified 09/26/22 20:25 DISEASE metronidazole Allergy Intermediate RASH Verified 09/26/22 20:25 Consultations 12/26/22 10:54 Consult Psychiatry Routine Hospital Course (1) Adult failure to thrive: (2) Hypotension: (3) Hyponatremia: (4) Major depress dis, severe: (5) Bipolar disorder: (6) Celiac disease: (7) HLD (hyperlipidemia): (8) Hypothyroidism: Plan 62yoF with PMHx of hypothyroidism, hyperlipidemia, anxiety/mood disorder, celiac disease, past tobacco abuse admitted with failure to thrive in the setting of MDD. Hospitalist service consulted about persistent hypotension. Hypotension Noted BP at time of consult was 67/42, resolved with IVF. BP around low 100s systolic as her baseline per outpatient medical records review. Get orthostatics --> negative, BPs are better/low normal now. Can use compression stockings, encourage protein intake in diet. Expect to improve w/ improvement in PO intake/good nutrition. Hyponatremia: resolved with IVF and PO intake. FTT Magazine Designer/Nutrition consult Follow CBC, BMP, Mag, Phos Counseling for depression Hypothyroidism chronic, TSH reflects slightly hyperthyroid state which may contribute to insomnia, agitation, etc.. As she lost reportedly 100lbs over the last year, her current levothyroxine dose will be adjusted. Repeat TFTs in 8 weeks and continue to readjust if needed. Will decrease from 125mcg PO daily to 100mcg PO daily. HLD: chronic, stable. Continue home statin Celiac Disease: chronic, stable. On gluten free diet Depression Management per psychiatry team Continue psychiatric meds as ordered Per psychiatry, does not need 1-1 Plan for inpatient psychiatric treatment. DVT prophylaxis: SCDs, ambulation CODE STATUS: Full code Diet: Gluten Free Dispo: Patient being discharged to [facility] S psychiatric facility. Home Health Attestation I certify that this patient is under my care and that I, or a physicians vet assistant working with me, had a face to-face encounter that meets the home health [id number] encounter requirements with this patient. The encounter with the patient was in whole, or in part, for the following medical condition, which is the primary reason for home health care (list m edical condition): I certify that, based on my findings, the following services are medically necessary home health services: My clinical findings support the need for the above services because: Further, I certify that my clinical findings support that this patient is homebound (i.e. absences from home require considerable and taxing effort and are for medical reasons or rastafari services or infrequently or of short duration when for other reasons) because: Certification for Home Health Services: Based on the above findings, I certify that this patient is confined to the home and needs intermittent fpc care, physical therapy and/or speech t herapy or continues to need occupational therapy. The patient is under my care, and I have initiated the establishment of the plan of care. This patient will be followed by a physician who will periodically review the plan of care. Total Time Total Time Spent Total Time Spent (In Minutes): 45 Discharge Plan Discharge Items Patient Disposition: Transfer Behavioral Health Fac Reason For Visit: HYPOTENSION Discharge Diagnosis: Hypotension likely secondary to poor appetite emanating from her untreated depression Hyponatremia and failure to thrive secondary to major depressive disorder Activity: Resume your previous activity Non-emergency contact: Primary Care Provider Call non-emergency contact if: you have any medication questions, your symptoms worsen and your temperature is above 101 Follow-up/Referrals: Jameel Marcelo MD [Primary Care Provider] - Diet: Regular and Gluten Free Addtl Attending Provider Instructions: You are being discharged to psychiatric facility for treatment of your major depressive disorder. Encourage to have increased protein intake in the diet, frequent diet. Your blood pressure is expected to improve with improvement in your diet. You can use compression stocking on lower extremities until your blood pressure gets better. You will need repeat thyroid function test in 6 to 8 weeks on discharge. Pending Studies at Discharge: No Stand-Alone Forms: My [facility] Medications and DC Order Prescriptions: New acetaminophen 325 mg Tablet 650 mg PO Q4H PRN (Reason: fever or pain) Qty: 30 0RF carbamazepine 200 mg Tablet 300 mg PO QPM Qty: 45 0RF mirtazapine 15 mg Tablet 15 mg PO HS Qty: 30 0RF pantoprazole 40 mg Tablet,Delayed Release (Dr/Ec) 40 mg PO QAM Qty: 30 0RF Saccharomyces boulardii [Florastor] 250 mg Capsule 250 mg PO DAILY Qty: 30 0RF levothyroxine [Synthroid] 100 mcg Tablet 100 mcg PO DAILYBB Qty: 30 0RF Continued simvastatin 20 mg tablet 20 mg PO HS Qty: 30 fluticasone propionate 50 units See Rx Instructions .ROUTE .COMPLEX PRN (Reason: rhinitis) Rx Instructions: 2 sparys into each nostril everyday fexofenadine 180 mg Tablet 180 mg PO DAILY lorazepam 0.5 mg tablet 0.5 mg PO DAILY PRN (Reason: Anxiety) pantoprazole 20 mg tablet,delayed release (DR/EC) 20 mg PO DAILYBB fluoxetine 10 mg capsule 30 mg PO DAILY Discontinued carbamazepine 200 mg tablet See Rx Instructions .ROUTE .COMPLEX Rx Instructions: per faxed med list- take 1 tab am and 1 and 1/2 tab at bedtime paroxetine HCl 30 mg tablet 30 mg PO DAILY levothyroxine 112 mcg Tablet 112 mcg PO DAILY Discharge Orders: Discharge Order (Routine); Ordered 12/29/22 Ordered By: Olivia Turner Admission Data Admit Date/Time: 12/26/22 09:26 Attending Provider: Olivia Turner Admit Provider: Sary Hanna Primary Care Provider: Jameel Marcelo Other Providers: Nicolette Crews ; Gayle Zuluaga ; Steve Wharton
== END 2022-12-29 18:25 | DRG 315 ==
LOC: SUATTDRO 10:27 → 3N 10:27 → 2N 11:29

== ENCOUNTER 2022-12-29 16:15 | Inpatient (IN) ==
[2022-12-29] MEDS ORDERED: SODIUM CHLORIDE 0.65% NA SOLN 45 ML (OCEAN) PRN (16:17)
[2022-12-29] MEDS ORDERED: hydrOXYzine HCl 25 MG TAB PO PRN (16:17)
[2022-12-29] MEDS ORDERED: MAGNESIUM HYDROXIDE SUSP 30 ML UDC PO PRN (16:17)
[2022-12-29] MEDS ORDERED: BISMUTH SUBSALICYLATE LIQD 236 ML PO PRN (16:17)
[2022-12-29] MEDS ORDERED: ACETAMINOPHEN 325 MG TAB PO PRN (16:17)
[2022-12-29] MEDS: MIRTAZAPINE TAB 15 MG TAB PO SCH (21:23)
[2022-12-30] MEDS ORDERED: FLUoxetine HCL 10 MG CAP PO SCH (09:00)
--- NOTE | 2022-12-30 09:15 | History & Physical ---
Date of Service December 30, 2022 Impression / Recommendations Samuel Castro is a 62 year old woman with a history of depression and anxiety who was admitted for severe depression and anxiety with neurovegetative symptoms and over 90 lbs of weight loss in recent months with inability to function outside of the hospital and required medical admission due to hypotension from poverty of po intake. Diagnostically consistent with likely major depressive episode with anxious distress with poor appetite, poor sleep, anhedonia, low energy and decreased motivation. No current evidence for eating disorder component but continue to explore given reported 90 lbs weight loss over the last few months. She is deemed in need of psychiatric hospitalization for diagnostic clarification, safety and stabilization, medication management and development of further coping skills. Discussed medication treatment options in detail. Discussed risks, benefits and alternatives. Patient would like to increase fluoxetine for depression. Reviewed side effects including but not limited to: GI, MUKHERJEE, sexual side effects, hyponatremia. (1) Recurrent severe major depressive disorder with anxiety: (2) Weight loss: (3) Hypotension: (4) Luis's thyroiditis: (5) Celiac disease: (6) GERD (gastroesophageal reflux disease): Plan 12/30/2022: The patient was admitted to the [facility] ([facility]) on q15 min checks (behavioral with suicide precautions) for safety. The patient will participate in group, recreational, and milieu therapies and will be offered additional individual and family sessions as clinically approp mirtha. -Discontinue Tegretol -Continue with mirtazapine 15mg HS -Increase fluoxetine to 60mg daily -If poor appetite persists despite mirtazapine and fluoxetine adjustments then consider trial of olanzapine for depression augmentation versus marinol for appetite stimulation Inventory Assets Strengths: supportive relationships, willing to get treatment Needs: safety and stabilization, medication adjustment, additional coping skills, increased outpatient services Suicide Risk Level Suicide Risk Level: Moderate (q15 min suicide checks) (severe depression but denies SI, feels safe in the hospital, able to safety contract and agrees to let nursing/staff know should they develop plan, intent or feel unable to remain safe. ) Risk Factors Assessment Male: No : Yes Do You Have Access To A Gun?: No Health Problems: Yes Mental Health Diagnoses: Yes Substance Use Disorders: No Previous Attempt: No Family History of Suicide: No Previous Psychiatric Hospitalization: No Protective Factors Assessment : Yes Employed: No Stable Relationships: Yes Supportive Family: Yes Psychiatric History Identifying Data JOSEFA FRITCHMAN is a 62-year-old woman who currently lives in [place] with her , has a history of failure to thrive resulting in medical admission in September 2022, anxiety and depression and was admitted on 12/29/22 16:18 on a 201 voluntary commitment for severe anxiety and depression with neurovegetative symptoms and over 90 lbs of weight loss in recent months with inability to function outside of the hospital. Chief Complaint "Yeah I still feel really depressed". History of Present Illness Josefa continues to have low energy, poor appetite, tearfulness, low motivation, concentration difficulties, anxiety, anhedonia and depressed mood. She has been tolerating initiation of mirtazapine, which was started on the medical floor on 12/27/2022, but has not noticed any benefit yet. She wonders about additional medication adjustments given ongoing symptom severity. She required admission to the medical floor from 12/26/2022 through 12/29/2022 for low blood pressure which they felt was due to poor appetite from depression. Hospitalist providers reduced her thyroid medication and encouraged ongoing focus of treating depression and increasing appetite to help with hypotension. Additional recent history per my consult note on 12/27/2022: "Josefa was transferred to the medical floor yesterday from inpatient psychiatry due to low BP and need for IV fluids and monitoring. Today reports she feels ok, still receiving po fluids and with low appetite and poor sleep. Denies SI but struggling to function outside of the hospital. She thinks the fluoxetine may be helping a little but but has only been on this for about one month with gradual dose titration. Further recent history per H&P by Dr. Zuluaga on 12/26/2022:"Patient was directed to ED yesterday by outpatient therapist, reportedly as no progress with outpatient care. Patient continues to report low energy, low motivation toward any activities, has barely left home in past year. History of 90 lb weight loss but reportedly "forcing" self to eat/drink three times a day. Suicidal thoughts were denied. Patient was seen on consult service during recent medical hospitalization for weakness. At that time she was taking Paxil, Tegretol (unclear indication, denied seizures or bipolar), Buspar and high dose Wellbutrin 450 mg. Wellbutrin was tapered due to concerns may be contributing to low appetite and was essentially ineffective. She also has mild hyponatremia (Tegretol and Paxil could contribute). Patient has since started seeing Dr. Aragon at [facility] and is now taking Prozac (increase to 30 mg last week) and Ativan prn, unclear how often is taken." Past Psychiatric History Current Psychiatric Diagnosis: MDD Outpatient Services: Dr. Aragon for psychiatry, [facility] for therapy Previous Psych Admissions: none Do You Have Access To A Gun?: No History of Previous Suicide Attempt: No Past Medication Trials: Paxil, Tegretol, Buspar, Wellbutrin Past Head Trauma/Neuro History History of Concussion/Seizure: No Allergies Allergy/AdvReac Type Severity Reaction Status Date / Time gluten Allergy Intermediate CELIAC Verified 09/26/22 20:25 DISEASE metronidazole Allergy Intermediate RASH Verified 09/26/22 20:25 Home Medications Medication Instructions Recorded Confirmed Type simvastatin 20 mg tablet 20 mg PO HS #30 tabs 03/07/19 12/30/22 History pantoprazole 20 mg tablet,delayed 20 mg PO DAILYBB 09/26/22 12/30/22 History release fexofenadine 180 mg tablet 180 mg PO DAILY 12/25/22 12/30/22 History fluticasone propionate See Rx Instructions .Route 12/25/22 12/30/22 History .COMPLEX PRN rhinitis lorazepam 0.5 mg tablet 0.5 mg PO DAILY PRN Anxiety 12/26/22 12/30/22 History fluoxetine 10 mg capsule 30 mg PO DAILY 12/27/22 12/30/22 History Saccharomyces boulardii 250 mg 250 mg PO DAILY #30 caps 12/29/22 12/30/22 Rx capsule (Florastor) acetaminophen 325 mg tablet 650 mg PO Q4H PRN fever or pain 12/29/22 12/30/22 Rx #30 tabs carbamazepine 200 mg tablet 300 mg PO QPM #45 tabs 12/29/22 12/30/22 Rx levothyroxine 100 mcg tablet 100 mcg PO DAILYBB #30 tabs 12/29/22 12/30/22 Rx (Synthroid) mirtazapine 15 mg tablet 15 mg PO HS #30 tabs 12/29/22 12/30/22 Rx pantoprazole 40 mg tablet,delayed 40 mg PO QAM #30 tabs 12/29/22 12/30/22 Rx release Family History Family History of: Depression Alcohol History Hx of Alcohol Use Over the Past 12 Months: No AUDIT Total Score: 0 Smoking Use Have You Smoked or Used Tobacco Products in the Last 30 Days: No Smoking Status: Never smoker Substance History Hx of Prescription Med Misuse Over the Past 12 Months: No Hx of Over the Counter Med Misuse Over the Past 12 Months: No Hx of Inhalent Misuse Over the Past 12 Months: No Hx of Organic Substance Use Over the Past 12 Months: No Hx of Illegal Substances/Street Drug Use Over Past 12 Months: No Problems as a Result of Past Substance Use: None Identified Personal History Living Arrangements: Home Employment Status: Retired Marital Status: Beliefs That Will Affect Care: None Current Legal Problems: No Hx Legal Problems: No Hx Traumatic Life Events: Yes (fears around daughter's adoption) Patient History Medical History Adult celiac disease Bipolar disorder Celiac disease GERD (gastroesophageal reflux disease) GERD (gastroesophageal reflux disease) HLD (hyperlipidemia) Hypokalemia Hyponatremia Hypothyroidism Osteoporosis Secondary hyperparathyroidism Vitamin B12 deficiency Vitamin D deficiency Weakness Weakness Surgical History No pertinent past surgical history Family History Other Family history non-contributory Social History Smoking Status: Never smoker Tobacco Type: Cigarettes Second Hand Exposure: No; Do You Dip or Chew Tobacco: No; Hx Alcohol Use: No Hx Substance Use: No Preferred Language: Maltese Communication Ability: Effective Cigarette Stamper Required: No Beliefs That Will Affect Care: None Current Living Situation: Spouse Feels Safe at Home: Yes Gender Identity: Female Assistive Devices: Glasses Review of Systems Review of Systems: All systems reviewed & are unremarkable except as noted in HPI & below Physical Exam Psychiatric: Orientation: alert and oriented x 3 Apperance: appropriately dressed and appropriately groomed Eye Contact: + fair eye contact Motor Behavior: + psychomotor retardation Speech: + abnormal rate/rhythm/volume of speech (slow, soft) Affect: + depressed affect Mood: + depressed mood Thought Process: + concrete thought process Thought Content: reality based without delusions Suicidal Thoughts: denies suicidal thoughts Homicidal Thoughts: denies homicidal thoughts Hallucinations: no auditory hallucinations and no visual hallucinations Cognition: attention grossly intact and language grossly intact; + recent memory not intact Estimated Intelligence: consistent with education level Insight: + limited insight Judgment: + limited judgement Vital Signs (Past 24 Hours): Last Vital Signs Temp 36.5 C 12/30/22 06:41 Pulse 98 H 12/30/22 06:42 Resp 16 12/30/22 06:41 BP 98/57 L 12/30/22 06:42 Pulse Ox 98 12/29/22 19:10 O2 Del Method Room Air 12/29/22 19:10 Exam Statement: A physical exam was performed on the medical floor by Dr. Turner for the purposes of medical clearance. I accept that physical as correct and adequate for the purposes of the inpatient physical exam. Results & Data ([facility]) Current Inpatient Medications Current Inpatient Medications: Current Inpatient Medications Acetaminophen (Acetaminophen 325 Mg Tab) 650 mg PO Q4H PRN PRN Reason: Headache or Minor Fever Stop: 01/28/23 16:16 Al Hydrox/Mg Hydrox/Simethicone (Aluminum/Magnesium Susp 30 Ml Udc) 30 ml PO Q4H PRN PRN Reason: GI Upset Stop: 01/28/23 16:16 Bismuth Subsalicylate (Bismuth Subsalicylate Liqd 236 Ml) 15 ml PO PRN PRN PRN Reason: Loose Stool Stop: 01/28/23 16:16 Fluoxetine HCl (Fluoxetine Hcl 10 Mg Cap) 30 mg PO QAM JASMYN Stop: 01/29/23 08:59 Last Admin: 12/30/22 08:57 Dose: 30 mg Hydroxyzine HCl (Hydroxyzine Hcl 25 Mg Tab) 50 mg PO HSZ PRN PRN Reason: Insomnia Stop: 01/28/23 16:16 Hydroxyzine HCl (Hydroxyzine Hcl 25 Mg Tab) 25 mg PO Q4H PRN PRN Reason: Anxiety Stop: 01/28/23 16:16 Magnesium Hydroxide (Magnesium Hydroxide Susp 30 Ml Udc) 30 ml PO DAILY PRN PRN Reason: Constipation Stop: 01/28/23 16:16 Mirtazapine (Mirtazapine Tab 15 Mg Tab) 15 mg PO HS JASMYN Stop: 01/28/23 21:59 Last Admin: 12/29/22 21:23 Dose: 15 mg Sodium Chloride (Sodium Chloride 0.65% Na Soln 45 Ml ([place])) 1 - 2 sprays NA PRN PRN PRN Reason: Nasal Dryness/Congestion Stop: 01/28/23 16:16
[2022-12-30] MEDS: PANTOprazole 40 MG TAB PO SCH (10:55)
[2022-12-30] MEDS: hydrOXYzine HCl 25 MG TAB PO PRN ×2 (10:55→15:07)
[2022-12-30] MEDS: SACCHAROMYCES BOULARDII 250 MG CAP PO SCH (10:55)
[2022-12-30] MEDS: FEXOFENADINE HCL 180 MG TAB PO SCH (10:55)
[2022-12-30] MEDS: LEVOTHYROXINE SODIUM 100 MCG TABLET PO SCH (12:38)
[2022-12-30] MEDS: SIMVASTATIN 20 MG TAB PO SCH ×2 (20:37→20:52)
[2022-12-30] MEDS: MIRTAZAPINE TAB 15 MG TAB PO SCH (20:53)
[2022-12-31] MEDS: LEVOTHYROXINE SODIUM 100 MCG TABLET PO SCH (07:27)
[2022-12-31] MEDS ORDERED: PANTOprazole 40 MG TAB PO SCH (08:00)
[2022-12-31] MEDS: FEXOFENADINE HCL 180 MG TAB PO SCH (08:25)
[2022-12-31] MEDS: FLUoxetine HCL 20 MG CAP PO SCH (08:25)
[2022-12-31] MEDS: SACCHAROMYCES BOULARDII 250 MG CAP PO SCH (08:26)
[2022-12-31] MEDS: PANTOprazole 40 MG TAB PO SCH (08:26)
--- NOTE | 2022-12-31 09:41 | Psychiatric Progress Note ---
Date of Service December 31, 2022 Impression / Recommendations Samuel Castro is a 62 year old woman with a history of depression and anxiety who was admitted for severe depression and anxiety with neurovegetative symptoms and over 90 lbs of weight loss in recent months with inability to function outside of the hospital and required medical admission due to hypotension from poverty of po intake. Diagnostically consistent with likely major depressive episode with anxious distress with poor appetite, poor sleep, anhedonia, low energy and decreased motivation. No current evidence for eating disorder component but continue to explore given reported 90 lbs weight loss over the last few months. She is deemed in need of psychiatric hospitalization for diagnostic clarification, safety and stabilization, medication management and development of further coping skills. 12/31/2022: Ongoing depression and she reports significant increase in anxiety today-in part due to circumstance with another patient on the unit and in part due to suspected GI side effects from higher dose of fluoxetine. She wants to continue with fluoxetine. Discussed medication treatment options in detail for anxiety including increasing mirtazapine vs trial of gabapentin as off-label option for anxiety vs trial of low dose abilify or olanzapine for off-label use for anxiety and to help with depression augmentation and ruminative anxiety. Discussed risks, benefits and alternatives. Patient would like to try a few doses of abilify to see if this helps with anxiety as off-label use and as augmentation for depression. Reviewed side effects including but not limited to: movement (TD, NMS), cardiac (QTc prolongation), and metabolic (stroke, insulin resistance) and hyponatremia and necessity for fasting lipid and glucose labwork (if she finds helpful and wants to remain on it) and AIMS done with score of 0. (1) Recurrent severe major depressive disorder with anxiety: (2) Weight loss: (3) Hypotension: (4) Luis's thyroiditis: (5) Celiac disease: (6) GERD (gastroesophageal reflux disease): Plan 12/31/2022: Start abilify 2.5mg qd, continue fluoxetine 60mg qd, continue mirtazapine 15mg HS 12/30/2022: The patient [facility] on q15 min checks (behavioral with suicide precautions) for safety. The patient will participate in group, recreational, and milieu therapies and will be offered additional individual and family sessions as clinically appropriate. -Discontinue Tegretol -Continue with mirtazapine 15mg HS -Increase fluoxetine to 60mg daily -If poor appetite persists despite mirtazapine and fluoxetine adjustments then consider trial of olanzapine for depression augmentation versus marinol for appetite stimulation Inventory Assets Strengths: supportive relationships, willing to get treatment Needs: safety and stabilization, medication adjustment, additional coping skills, increased outpatient services Suicide Risk Level Suicide Risk Level: Moderate (q15 min suicide checks) (severe depression but denies SI, feels safe in the hospital, able to safety contract and agrees to let nursing/staff know should they develop plan, intent or feel unable to remain safe. ) Risk Factors Assessment Male: No : Yes Do You Have Access To A Gun?: Yes Health Problems: Yes Mental Health Diagnoses: Yes Substance Use Disorders: No Previous Attempt: No Family History of Suicide: No Previous Psychiatric Hospitalization: No Protective Factors Assessment : Yes Employed: No Stable Relationships: Yes Supportive Family: Yes Interval History Identifying Information JOSEFA BAILEY is a 62-year-old woman who currently lives in [place] with her , has a history of failure to thrive resulting in medical admission in September 2022, anxiety and depression and was admitted on 12/29/22 16:18 on a 201 voluntary commitment for severe anxiety and depression with neurovegetative symptoms and over 90 lbs of weight loss in recent months with inability to function outside of the hospital. Chief Complaint "My anxiety is really bad". Review of Systems Sleep Information Total Hours of Sleep: 6.5 Meal Information Percent Meal Consumed - Breakfast: 75 Percent Meal Consumed - Lunch: 60 Percent Meal Consumed - Dinner: 75 Subjective Subjective Patient was seen & assessed and interval progress reviewed with treatment team nursing and social work. Did not sleep well last night, feels like she couldn't get to sleep due to racing thoughts and then felt like she woke up multiple times. Thinks increased anxiety last night was due to another patient on the unit recognizing her from the past and becoming fixated on him. This morning she was still anxious but was able to eat breakfast but after getting new higher fluoxetine dose she experienced some loosened stools and this caused her to feel "empty" like a knot of anxiety was in her stomach and she was unable to eat lunch except to drink a boost nutritional shake. She feels the Vistaril only "slightly" helps with anxiety. Feels overwhelmed and is requesting more to help with anxiety. Physical Exam Psychiatric Orientation: alert and oriented x 3 Apperance: appropriately dressed and appropriately groomed Eye Contact: + fair eye contact Motor Behavior: + psychomotor retardation Speech: + abnormal rate/rhythm/volume of speech (soft) Affect: + depressed affect and + constricted affect Mood: + depressed mood and + anxious mood Thought Process: + concrete thought process Thought Content: reality based without delusions Suicidal Thoughts: denies suicidal thoughts Homicidal Thoughts: denies homicidal thoughts Hallucinations: no auditory hallucinations and no visual hallucinations Cognition: recent memory grossly intact, attention grossly intact and language grossly intact Estimated Intelligence: consistent with education level Insight: + limited insight Judgment: + limited judgement Vital Signs (Past 24 Hours) Last Vital Signs Temp 36.6 C 12/31/22 06:36 Pulse 91 H 12/31/22 09:00 Resp 16 12/31/22 06:36 BP 114/82 12/31/22 09:00 Pulse Ox 98 12/29/22 19:10 O2 Del Method Room Air 12/29/22 19:10 Results & Data ([facility]) Current Inpatient Medications Current Inpatient Medications: Current Inpatient Medications Acetaminophen (Acetaminophen 325 Mg Tab) 650 mg PO Q4H PRN PRN Reason: Headache or Minor Fever Stop: 01/28/23 16:16 Last Admin: 12/30/22 10:55 Dose: 650 mg Al Hydrox/Mg Hydrox/Simethicone (Aluminum/Magnesium Susp 30 Ml Udc) 30 ml PO Q4H PRN PRN Reason: GI Upset Stop: 01/28/23 16:16 Bismuth Subsalicylate (Bismuth Subsalicylate Liqd 236 Ml) 15 ml PO PRN PRN PRN Reason: Loose Stool Stop: 01/28/23 16:16 Fexofenadine HCl (Fexofenadine Hcl 180 Mg Tab) 180 mg PO DAILY JASMYN Stop: 01/29/23 09:14 Last Admin: 12/31/22 08:25 Dose: 180 mg Fluoxetine HCl (Fluoxetine Hcl 20 Mg Cap) 60 mg PO QAM JASMYN Stop: 01/30/23 08:59 Last Admin: 12/31/22 08:25 Dose: 60 mg Hydroxyzine HCl (Hydroxyzine Hcl 25 Mg Tab) 50 mg PO HSZ PRN PRN Reason: Insomnia Stop: 01/28/23 16:16 Last Admin: 12/30/22 20:59 Dose: 50 mg Hydroxyzine HCl (Hydroxyzine Hcl 25 Mg Tab) 25 mg PO Q4H PRN PRN Reason: Anxiety Stop: 01/28/23 16:16 Last Admin: 12/30/22 15:07 Dose: 25 mg Levothyroxine Sodium (Levothyroxine Sodium 100 Mcg Tablet) 100 mcg PO DAILYBB JASMYN Stop: 01/30/23 07:59 Last Admin: 12/31/22 07:27 Dose: 100 mcg Magnesium Hydroxide (Magnesium Hydroxide Susp 30 Ml Udc) 30 ml PO DAILY PRN PRN Reason: Constipation Stop: 01/28/23 16:16 Mirtazapine (Mirtazapine Tab 15 Mg Tab) 15 mg PO HS JASMYN Stop: 01/28/23 21:59 Last Admin: 12/30/22 20:53 Dose: 15 mg Pantoprazole Sodium (Pantoprazole 40 Mg Tab) 40 mg PO QAM JASMYN Stop: 01/29/23 09:29 Last Admin: 12/31/22 08:26 Dose: 40 mg Saccharomyces Boulardii (Saccharomyces Boulardii 250 Mg Cap) 250 mg PO DAILY JASMYN Stop: 01/29/23 09:29 Last Admin: 12/31/22 08:26 Dose: 250 mg Simvastatin (Simvastatin 20 Mg Tab) 20 mg PO HS JASMYN Stop: 01/29/23 21:59 Last Admin: 12/30/22 20:52 Dose: 20 mg Sodium Chloride (Sodium Chloride 0.65% Na Soln 45 Ml ([place])) 1 - 2 sprays NA PRN PRN PRN Reason: Nasal Dryness/Congestion Stop: 01/28/23 16:16 Mental Health & Subst Abuse Tx Psychiatrist Name of Psychiatrist: [facility] - Dr. Aragon Psychiatrist's Psychiatric Appointment Comment: This appointment is via telehealth. Therapist Name of Therapist: Lucy Hanley, MS, GERIATRIC NURSE PRACTITIONER, CRC Therapist's Time of Therapist Appointment: [address] [place] [address] Therapy Appointment Comment: Please resume your normal therapy schedule. Post Discharge Appointments Primary Care Physician Name Of Family Doctor/PCP: Sheyla Marcelo Primary Care Time of Appointment with PCP: [address], [place] [id number] Provider Appointment Comment: Please follow-up with PCP as needed.
[2022-12-31] MEDS: ARIPiprazole 5 MG TAB PO SCH (15:33)
[2022-12-31] MEDS ORDERED: MELATONIN 3 MG TAB PO PRN (16:56)
[2022-12-31] MEDS: ALUMINUM/MAGNESIUM SUSP 30 ML UDC PO PRN (17:25)
[2022-12-31] MEDS: MIRTAZAPINE TAB 15 MG TAB PO SCH (21:32)
[2022-12-31] MEDS: SIMVASTATIN 20 MG TAB PO SCH (21:36)
[2023-01-01] MEDS: LEVOTHYROXINE SODIUM 100 MCG TABLET PO SCH (09:12)
[2023-01-01] MEDS: FEXOFENADINE HCL 180 MG TAB PO SCH (09:12)
[2023-01-01] MEDS: FLUoxetine HCL 20 MG CAP PO SCH (09:12)
[2023-01-01] MEDS: PANTOprazole 40 MG TAB PO SCH (09:13)
[2023-01-01] MEDS: SACCHAROMYCES BOULARDII 250 MG CAP PO SCH (09:13)
[2023-01-01] MEDS: ARIPiprazole 5 MG TAB PO SCH (09:13)
[2023-01-01] MEDS: ALUMINUM/MAGNESIUM SUSP 30 ML UDC PO PRN (13:44)
--- NOTE | 2023-01-01 16:55 | Psychiatric Progress Note ---
Date of Service January 01, 2023 Impression / Recommendations Samuel Castro is a 62 year old woman with a history of depression and anxiety who was admitted for severe depression and anxiety with neurovegetative symptoms and over 90 lbs of weight loss in recent months with inability to function outside of the hospital and required medical admission due to hypotension from poverty of po intake. Diagnostically consistent with likely major depressive episode with anxious distress with poor appetite, poor sleep, anhedonia, low energy and decreased motivation. No current evidence for eating disorder component but continue to explore given reported 90 lbs weight loss over the last few months. She is deemed in need of psychiatric hospitalization for diagnostic clarification, safety and stabilization, medication management and development of further coping skills. 01/01/2023: Ongoing depression and anxiety but anxiety slightly improved today after addition of abilify, not requiring repeated doses of Vistaril throughout the day. Still wiht some GI symptoms, unclear if side effect from higher dose of fluoxetine vs 2/2 anxiety with somatic preoccupation. (1) Recurrent severe major depressive disorder with anxiety: (2) Weight loss: (3) Hypotension: (4) Luis's thyroiditis: (5) Celiac disease: (6) GERD (gastroesophageal reflux disease): Plan 01/01/2023: Continue current medications. Fasting glucose and lipid panel in the AM. 12/31/2022: Start abilify 2.5mg qd, continue fluoxetine 60mg qd, continue mirtazapine 15mg HS 12/30/2022: The patient was admitted to the [facility]) on q15 min checks (behavioral with suicide precautions) for safety. The patient will participate in group, recreational, and milieu therapies and will be offered additional individual and family sessions as clinically appropriate. -Discontinue Tegretol -Continue with mirtazapine 15mg HS -Increase fluoxetine to 60mg daily -If poor appetite persists despite mirtazapine and fluoxetine adjustments then consider trial of olanzapine for depression augmentation versus marinol for appetite stimulation Inventory Assets Strengths: supportive relationships, willing to get treatment Needs: safety and stabilization, medication adjustment, additional coping skills, increased outpatient services Suicide Risk Level Suicide Risk Level: Moderate (q15 min suicide checks) (severe depression but denies SI, feels safe in the hospital, able to safety contract and agrees to let nursing/staff know should they develop plan, intent or feel unable to remain safe. ) Risk Factors Assessment Male: No : Yes Do You Have Access To A Gun?: Yes Health Problems: Yes Mental Health Diagnoses: Yes Substance Use Disorders: No Previous Attempt: No Family History of Suicide: No Previous Psychiatric Hospitalization: No Protective Factors Assessment : Yes Employed: No Stable Relationships: Yes Supportive Family: Yes Interval History Identifying Information JOSEFA BAILEY is a 62-year-old woman who currently lives in [place] with her , has a history of failure to thrive resulting in medical admission in September 2022, anxiety and depression and was admitted on 12/29/22 16:18 on a 201 voluntary commitment for severe anxiety and depression with neurovegetative symptoms and over 90 lbs of weight loss in recent months with inability to function outside of the hospital. Chief Complaint "When stomach is upset it makes my thoughts off". Review of Systems Sleep Information Total Hours of Sleep: 7 Meal Information Percent Meal Consumed - Breakfast: 90 Percent Meal Consumed - Lunch: 50 Percent Meal Consumed - Dinner: 25 Nutrition Comment: Subjective Subjective Patient was seen & assessed and interval progress reviewed with treatment team nursing and social work. Accepted prn maalox for GI symptoms and was able to eat dinner last night and breakfast this morning. States she knows she needs to eat but worries that if she eats too much she'll have loose stools again. So far no episodes of loose stools today but she still feels that her stomach is "off" that this makes her in turn feel anxious. Has put off showering because "it makes me feel jittery but I know I need to". Thinks her anxiety might be a little better with abilify. Slept better last night. Physical Exam Psychiatric Orientation: alert and oriented x 3 Apperance: appropriately dressed and appropriately groomed Eye Contact: + fair eye contact Motor Behavior: + psychomotor retardation Speech: + abnormal rate/rhythm/volume of speech (soft) Affect: + depressed affect and + anxious affect Mood: + depressed mood and + anxious mood Thought Process: clear/coherent thought process and + concrete thought process Thought Content: + preoccupation (somatic/GI) and reality based without delusions Suicidal Thoughts: denies suicidal thoughts Homicidal Thoughts: denies homicidal thoughts Hallucinations: no auditory hallucinations and no visual hallucinations Cognition: recent memory grossly intact, attention grossly intact and language grossly intact Estimated Intelligence: consistent with education level Insight: + limited insight Judgment: + limited judgement Vital Signs (Past 24 Hours) Last Vital Signs Temp 37.2 C 01/01/23 06:00 Pulse 91 H 01/01/23 06:48 Resp 18 01/01/23 06:00 BP 95/61 L 01/01/23 06:48 Pulse Ox 98 01/01/23 06:00 O2 Del Method Room Air 01/01/23 06:00 Results & Data ([facility]) Current Inpatient Medications Current Inpatient Medications: Current Inpatient Medications Acetaminophen (Acetaminophen 325 Mg Tab) 650 mg PO Q4H PRN PRN Reason: Headache or Minor Fever Stop: 01/28/23 16:16 Last Admin: 12/30/22 10:55 Dose: 650 mg Al Hydrox/Mg Hydrox/Simethicone (Aluminum/Magnesium Susp 30 Ml Udc) 30 ml PO Q4H PRN PRN Reason: GI Upset Stop: 01/28/23 16:16 Last Admin: 01/01/23 13:44 Dose: 30 ml Aripiprazole (Aripiprazole 5 Mg Tab) 2.5 mg PO QAM [facility] Stop: 01/30/23 14:14 Last Admin: 01/01/23 09:13 Dose: 2.5 mg Bismuth Subsalicylate (Bismuth Subsalicylate Liqd 236 Ml) 15 ml PO PRN PRN PRN Reason: Loose Stool Stop: 01/28/23 16:16 Fexofenadine HCl (Fexofenadine Hcl 180 Mg Tab) 180 mg PO DAILY [facility] Stop: 01/29/23 09:14 Last Admin: 01/01/23 09:12 Dose: 180 mg Fluoxetine HCl (Fluoxetine Hcl 20 Mg Cap) 60 mg PO QAM [facility] Stop: 01/30/23 08:59 Last Admin: 01/01/23 09:12 Dose: 60 mg Hydroxyzine HCl (Hydroxyzine Hcl 25 Mg Tab) 25 mg PO Q4H PRN PRN Reason: Anxiety Stop: 01/28/23 16:16 Last Admin: 12/30/22 15:07 Dose: 25 mg Levothyroxine Sodium (Levothyroxine Sodium 100 Mcg Tablet) 100 mcg PO DAILYBB [facility] Stop: 01/30/23 07:59 Last Admin: 01/01/23 09:12 Dose: 100 mcg Magnesium Hydroxide (Magnesium Hydroxide Susp 30 Ml Udc) 30 ml PO DAILY PRN PRN Reason: Constipation Stop: 01/28/23 16:16 Melatonin (Melatonin 3 Mg Tab) 3 mg PO HS PRN PRN Reason: Sleep Stop: 01/30/23 16:55 Mirtazapine (Mirtazapine Tab 15 Mg Tab) 15 mg PO HS JASMYN Stop: 01/28/23 21:59 Last Admin: 12/31/22 21:32 Dose: 15 mg Pantoprazole Sodium (Pantoprazole 40 Mg Tab) 40 mg PO QAM JASMYN Stop: 01/29/23 09:29 Last Admin: 01/01/23 09:13 Dose: 40 mg Saccharomyces Boulardii (Saccharomyces Boulardii 250 Mg Cap) 250 mg PO DAILY JASMYN Stop: 01/29/23 09:29 Last Admin: 01/01/23 09:13 Dose: 250 mg Simvastatin (Simvastatin 20 Mg Tab) 20 mg PO HS JASMYN Stop: 01/29/23 21:59 Last Admin: 12/31/22 21:36 Dose: 20 mg Sodium Chloride (Sodium Chloride 0.65% Na Soln 45 Ml ([employer])) 1 - 2 sprays NA PRN PRN PRN Reason: Nasal Dryness/Congestion Stop: 01/28/23 16:16 Mental Health & Subst Abuse Tx Psychiatrist Name of Psychiatrist: [facility] - Dr. Aragon Psychiatrist's Date Of Appointment With Psychiatric Provider: 01/06/23 Time of Appointment with Psychiatrist: 3:00 PM Psychiatric Appointment Comment: This appointment is via telehealth. Therapist Name of Therapist: Lucy Hanley MS, MARINE DRILLER, CRC Therapist's Date of Therapist Appointment: 01/08/23 Time of Therapist Appointment: 11:00 AM Therapy Appointment Comment: [address] [facility] [place] [address] Post Discharge Appointments Primary Care Physician Name Of Family Doctor/PCP: Sheyla Marcelo Primary Care Date of Future Appointment with PCP: 01/09/23 Time of Appointment with PCP: 10:00 AM, arrival time 9:45 AM Provider Appointment Comment: [address] [facility] [address]
[2023-01-01] MEDS: SIMVASTATIN 20 MG TAB PO SCH (21:02)
[2023-01-01] MEDS: MIRTAZAPINE TAB 15 MG TAB PO SCH (21:02)
[2023-01-02 08:33] LABS: Chol HDL Ratio 3.4 (0-5)
[2023-01-02] MEDS: ARIPiprazole 5 MG TAB PO SCH (08:40)
[2023-01-02] MEDS: LEVOTHYROXINE SODIUM 100 MCG TABLET PO SCH (08:40)
[2023-01-02] MEDS: FEXOFENADINE HCL 180 MG TAB PO SCH (08:41)
[2023-01-02] MEDS: SACCHAROMYCES BOULARDII 250 MG CAP PO SCH (08:42)
[2023-01-02] MEDS: PANTOprazole 40 MG TAB PO SCH (08:42)
[2023-01-02] MEDS: FLUoxetine HCL 20 MG CAP PO SCH (08:42)
[2023-01-02] MEDS ORDERED: ONDANSETRON 4 MG OD TAB PO PRN (10:36)
[2023-01-02] MEDS: hydrOXYzine HCl 25 MG TAB PO PRN ×2 (16:01→19:00)
--- NOTE | 2023-01-02 16:13 | Psychiatric Progress Note ---
Date of Service January 02, 2023 Impression / Recommendations Samuel Castro is a 62 year old woman with a history of depression and anxiety who was admitted for severe depression and anxiety with neurovegetative symptoms and over 90 lbs of weight loss in recent months with inability to function outside of the hospital and required medical admission due to hypotension from poverty of po intake. Diagnostically consistent with likely major depressive episode with anxious distress with poor appetite, poor sleep, anhedonia, low energy and decreased motivation. No current evidence for eating disorder component but continue to explore given reported 90 lbs weight loss over the last few months. She is deemed in need of psychiatric hospitalization for diagnostic clarification, safety and stabilization, medication management and development of further coping skills. 01/02/2023: Ongoing depression and anxiety with increased nausea today but bowel movements more normalized. Struggling to attend to self-care such as showering due to depression and anxiety. Still with periods of heightened anxiety which seem largely driven by somatic concerns. Encouragingly is eating more. If nausea persists consider rechecking Na+ level given history of low Na+ but no other signs of hyponatremia at this time, in fact cognition seems to be improving as depression and anxiety get slightly less intense. She consents to increase of mirtazapine to further target insomnia and off-label for nausea benefits. Reviewed fasting glucose and lipid panel which were normal. (1) Recurrent severe major depressive disorder with anxiety: (2) Weight loss: (3) Hypotension: (4) Luis's thyroiditis: (5) Celiac disease: (6) GERD (gastroesophageal reflux disease): Plan 01/02/2023: Increase mirtazapine to 30mg HS. Continue fluoxetine and abilify. 01/01/2023: Continue current medications. Fasting glucose and lipid panel in the AM. 12/31/2022: Start abilify 2.5mg qd, continue fluoxetine 60mg qd, continue mirtazapine 15mg HS 12/30/2022: The patient was admitted to the [facility] ([facility]) on q15 min checks (behavioral with suicide precautions) for safety. The patient will participate in group, recreational, and milieu therapies and will be offered additional individual and family sessions as clinically appropriate. -Discontinue Tegretol -Continue with mirtazapine 15mg HS -Increase fluoxetine to 60mg daily -If poor appetite persists despite mirtazapine and fluoxetine adjustments then consider trial of olanzapine for depression augmentation versus marinol for appetite stimulation Inventory Assets Strengths: supportive relationships, willing to get treatment Needs: safety and stabilization, medication adjustment, additional coping skills, increased outpatient services Suicide Risk Level Suicide Risk Level: Moderate (q15 min suicide checks) (severe depression but denies SI, feels safe in the hospital, able to safety contract and agrees to let nursing/staff know should they develop plan, intent or feel unable to remain safe. ) Risk Factors Assessment Male: No : Yes Do You Have Access To A Gun?: Yes Health Problems: Yes Mental Health Diagnoses: Yes Substance Use Disorders: No Previous Attempt: No Family History of Suicide: No Previous Psychiatric Hospitalization: No Protective Factors Assessment : Yes Employed: No Stable Relationships: Yes Supportive Family: Yes Interval History Identifying Information JOSEFA BAILEY is a 62-year-old woman who currently lives in [place] with her , has a history of failure to thrive resulting in medical admission in September 2022, anxiety and depression and was admitted on 12/29/22 16:18 on a 201 voluntary commitment for severe anxiety and depression with neurovegetative symptoms and over 90 lbs of weight loss in recent months with inability to function outside of the hospital. Chief Complaint "I just hate feeling off, it's discouraging". Review of Systems Sleep Information Total Hours of Sleep: 6.75 Meal Information Percent Meal Consumed - Breakfast: 75 Percent Meal Consumed - Lunch: 25 Percent Meal Consumed - Dinner: 100 Subjective Subjective Patient was seen & assessed and interval progress reviewed with treatment team nursing and social work. Feels she had a moment of "feeling like myself and looking forward to things" last evening but then slept poorly overnight and woke feeling discouraged due to increased nausea. Got prn zofran with limited relief. Reviewed labwork. Likes the abilify and finding this helpful for mood and anxiety. Discussed option of increasing mirtazapine which she would like to do. Physical Exam Psychiatric Orientation: alert and oriented x 3 Apperance: appropriately dressed and appropriately groomed Eye Contact: + fair eye contact Motor Behavior: + psychomotor retardation Speech: + abnormal rate/rhythm/volume of speech (soft) Affect: + depressed affect and + anxious affect Mood: + depressed mood and + anxious mood Thought Process: clear/coherent thought process and + concrete thought process Thought Content: + preoccupation (somatic/GI) and reality based without delusions Suicidal Thoughts: denies suicidal thoughts Homicidal Thoughts: denies homicidal thoughts Hallucinations: no auditory hallucinations and no visual hallucinations Cognition: recent memory grossly intact, attention grossly intact and language grossly intact Estimated Intelligence: consistent with education level Insight: + limited insight Judgment: + limited judgement Vital Signs (Past 24 Hours) Last Vital Signs Temp 36.8 C 01/02/23 06:21 Pulse 67 01/02/23 15:00 Resp 18 01/02/23 06:21 BP 107/68 01/02/23 15:00 Pulse Ox 98 01/02/23 06:21 O2 Del Method Room Air 01/02/23 06:21 Results & Data ([facility]) Laboratory Results Laboratory Results - last 24 hr 01/02/23 07:05 Fasting Glucose 88 Triglycerides 59 Cholesterol 151 LDL Cholesterol, Calc 94 VLDL Cholesterol, Calc 12 HDL Cholesterol 45 Cholesterol/HDL Ratio 3.4 Current Inpatient Medications Current Inpatient Medications: Current Inpatient Medications Acetaminophen (Acetaminophen 325 Mg Tab) 650 mg PO Q4H PRN PRN Reason: Headache or Minor Fever Stop: 01/28/23 16:16 Last Admin: 12/30/22 10:55 Dose: 650 mg Al Hydrox/Mg Hydrox/Simethicone (Aluminum/Magnesium Susp 30 Ml Udc) 30 ml PO Q4H PRN PRN Reason: GI Upset Stop: 01/28/23 16:16 Last Admin: 01/01/23 13:44 Dose: 30 ml Aripiprazole (Aripiprazole 5 Mg Tab) 2.5 mg PO QAM JASMYN Stop: 01/30/23 14:14 Last Admin: 01/02/23 08:40 Dose: 2.5 mg Bismuth Subsalicylate (Bismuth Subsalicylate Liqd 236 Ml) 15 ml PO PRN PRN PRN Reason: Loose Stool Stop: 01/28/23 16:16 Fexofenadine HCl (Fexofenadine Hcl 180 Mg Tab) 180 mg PO DAILY JASMYN Stop: 01/29/23 09:14 Last Admin: 01/02/23 08:41 Dose: 180 mg Fluoxetine HCl (Fluoxetine Hcl 20 Mg Cap) 60 mg PO QAM JASMYN Stop: 01/30/23 08:59 Last Admin: 01/02/23 08:42 Dose: 60 mg Hydroxyzine HCl (Hydroxyzine Hcl 25 Mg Tab) 25 mg PO Q4H PRN PRN Reason: Anxiety Stop: 01/28/23 16:16 Last Admin: 12/30/22 15:07 Dose: 25 mg Levothyroxine Sodium (Levothyroxine Sodium 100 Mcg Tablet) 100 mcg PO DAILYBB JASMYN Stop: 01/30/23 07:59 Last Admin: 01/02/23 08:40 Dose: 100 mcg Magnesium Hydroxide (Magnesium Hydroxide Susp 30 Ml Udc) 30 ml PO DAILY PRN PRN Reason: Constipation Stop: 01/28/23 16:16 Melatonin (Melatonin 3 Mg Tab) 3 mg PO HS PRN PRN Reason: Sleep Stop: 01/30/23 16:55 Mirtazapine (Mirtazapine Tab 15 Mg Tab) 15 mg PO HS JASMYN Stop: 01/28/23 21:59 Last Admin: 01/01/23 21:02 Dose: 15 mg Ondansetron HCl (Ondansetron 4 Mg Od Tab) 4 mg PO BID PRN PRN Reason: Nausea And Vomiting Stop: 02/01/23 10:35 Last Admin: 01/02/23 11:22 Dose: 4 mg Pantoprazole Sodium (Pantoprazole 40 Mg Tab) 40 mg PO QAM JASMYN Stop: 01/29/23 09:29 Last Admin: 01/02/23 08:42 Dose: 40 mg Saccharomyces Boulardii (Saccharomyces Boulardii 250 Mg Cap) 250 mg PO DAILY JASMYN Stop: 01/29/23 09:29 Last Admin: 01/02/23 08:42 Dose: 250 mg Simvastatin (Simvastatin 20 Mg Tab) 20 mg PO HS JASMYN Stop: 01/29/23 21:59 Last Admin: 01/01/23 21:02 Dose: 20 mg Sodium Chloride (Sodium Chloride 0.65% Na Soln 45 Ml ([place])) 1 - 2 sprays NA PRN PRN PRN Reason: Nasal Dryness/Congestion Stop: 01/28/23 16:16 Mental Health & Subst Abuse Tx Psychiatrist Name of Psychiatrist: [facility] - Dr. Aragon Psychiatrist's Date Of Appointment With Psychiatric Provider: 01/06/23 Time of Appointment with Psychiatrist: 3:00 PM Psychiatric Appointment Comment: This appointment is via telehealth. Therapist Name of Therapist: Lucy Spaw, MS, AVIONICS INTEGRATION ENGINEER, CRC Therapist's Date of Therapist Appointment: 01/08/23 Time of Therapist Appointment: 11:00 AM Therapy Appointment Comment: [address] [place], [place] [address] [address] Post Discharge Appointments Primary Care Physician Name Of Family Doctor/PCP: Sheyla Marcelo Primary [facility] Date of Future Appointment with PCP: 01/09/23 Time of Appointment with PCP: 10:00 AM, arrival time 9:45 AM Provider [facility]ment [facility] [address] [facility] [place] [address]
[2023-01-02] MEDS: MIRTAZAPINE TAB 15 MG TAB PO SCH (21:30)
[2023-01-02] MEDS: SIMVASTATIN 20 MG TAB PO SCH (21:42)
[2023-01-03] MEDS: LEVOTHYROXINE SODIUM 100 MCG TABLET PO SCH (08:45)
[2023-01-03] MEDS: FLUoxetine HCL 20 MG CAP PO SCH (08:46)
[2023-01-03] MEDS: ARIPiprazole 5 MG TAB PO SCH (08:46)
[2023-01-03] MEDS: FEXOFENADINE HCL 180 MG TAB PO SCH (08:46)
[2023-01-03] MEDS: SACCHAROMYCES BOULARDII 250 MG CAP PO SCH (08:47)
[2023-01-03] MEDS: PANTOprazole 40 MG TAB PO SCH (08:47)
[2023-01-03] MEDS: hydrOXYzine HCl 25 MG TAB PO PRN ×3 (09:56→17:38)
--- NOTE | 2023-01-03 10:15 | Psychiatric Progress Note ---
Date of Service January 03, 2023 Impression / Recommendations Samuel Castro is a 62 year old woman with a history of depression and anxiety who was admitted for severe depression and anxiety with neurovegetative symptoms and over 90 lbs of weight loss in recent months with inability to function outside of the hospital and required medical admission due to hypotension from poverty of po intake. Diagnostically consistent with likely major depressive episode with anxious distress with poor appetite, poor sleep, anhedonia, low energy and decreased motivation. No current evidence for eating disorder component but continue to explore given reported 90 lbs weight loss over the last few months. She is deemed in need of psychiatric hospitalization for diagnostic clarification, safety and stabilization, medication management and development of further coping skills. 01/03/2023: Presents as very anxious today, but doesn't offer any somatic complaints, including nausea or other GI side effects. Reports that she thinks both aripiprazole and mirtazapine are making her "more jittery". She does not want to continue aripiprazole, though she's willing to continue mirtazapine for now. Risks and benefits of, and alternatives to, the use of olanzapine (Zyprexa) for mood and potentially for anxiety were reviewed. This included but was not limited to issues known potentially to be associated with use of such medication, especially at high doses or with longer use, including sedation, weight gain, problems with glucose metabolism including Type II diabetes, problems with lipid metabolism, cardiac conduction problems, or rarely involuntary movements, parkinsonian symptoms, or even life-threatening Neuroleptic Malignant Syndrome. Discussed that these risks and the need for periodic lab monitorong largely overlap with those of aripiprazole but that olanzapine is more likely to be sedating and to increase appetite, both of which would be desireable in her case. The patient agreed to start a trial of olanzapine in place of aripiprazole. In trying to investigate whether she might be having some akathisia from aripiprazole, I was left with the strong impression that when she tells me something is "worse" that she often means "not better" - she's really not able to compare symptom severity at different times and struggles to describe symptoms at all. Observations by nursing are that both sleep and eating have improved. She presents as very distracted and repeats questions many times 01/02/2023: Ongoing depression and anxiety with increased nausea today but bowel movements more normalized. Struggling to attend to self-care such as showering due to depression and anxiety. Still with periods of heightened anxiety which seem largely driven by somatic concerns. Encouragingly is eating more. If nausea persists consider rechecking Na+ level given history of low Na+ but no other signs of hyponatremia at this time, in fact cognition seems to be improving as depression and anxiety get slightly less intense. She consents to increase of mirtazapine to further target insomnia and off-label for nausea benefits. Reviewed fasting glucose and lipid panel which were normal. 01/01/2023: Ongoing depression and anxiety but anxiety slightly improved today after addition of abilify, not requiring repeated doses of Vistaril throughout the day. Still wiht some GI symptoms, unclear if side effect from higher dose of fluoxetine vs 2/2 anxiety with somatic preoccupation. 12/31/2022: Ongoing depression and she reports significant increase in anxiety today-in part due to circumstance with another patient on the unit and in part due to suspected GI side effects from higher dose of fluoxetine. She wants to continue with fluoxetine. Discussed medication treatment options in detail for anxiety including increasing mirtazapine vs trial of gabapentin as off-label option for anxiety vs trial of low dose abilify or olanzapine for off-label use for anxiety and to help with depression augmentation and ruminative anxiety. Discussed risks, benefits and alternatives. Patient would like to try a few doses of abilify to see if this helps with anxiety as off-label use and as augmentation for depression. Reviewed side effects including but not limited to: movement (TD, NMS), cardiac (QTc prolongation), and metabolic (stroke, insulin resistance) and hyponatremia and necessity for fasting lipid and glucose labwork (if she finds helpful and wants to remain on it) and AIMS done with score of 0. (1) Recurrent severe major depressive disorder with anxiety: (2) Weight loss: (3) Hypotension: (4) Luis's thyroiditis: (5) Celiac disease: (6) GERD (gastroesophageal reflux disease): Plan 01/03/2023: * stop aripiprazole (possible akathisia) * start trial of olanzapine 5 mg QHS * continue mirtazapine 15 mg QHS for the time being * continue fluoxetine 60 mg daily * 01/02/2023: Increase mirtazapine to 30mg HS. Continue fluoxetine and abilify. 01/01/2023: Continue current medications. Fasting glucose and lipid panel in the AM. 12/31/2022: Start abilify 2.5mg qd, continue fluoxetine 60mg qd, continue mirtazapine 15mg HS 12/30/2022: The patient was admitted to the [facility] ([facility]) on q15 min checks (behavioral with suicide precautions) for safety. The patient will participate in group, recreational, and milieu therapies and will be offered additional individual and family sessions as clinically appropriate. -Discontinue Tegretol -Continue with mirtazapine 15mg HS -Increase fluoxetine to 60mg daily -If poor appetite persists despite mirtazapine and fluoxetine adjustments then c onsider trial of olanzapine for depression augmentation versus marinol for appetite stimulation Inventory Assets Strengths: supportive relationships, willing to get treatment Needs: safety and stabilization, medication adjustment, additional coping skills, increased outpatient services Suicide Risk Level Suicide Risk Level: Moderate (q15 min suicide checks) (severe depression but denies SI, feels safe in the hospital, able to safety contract and agrees to let nursing/staff know should they develop plan, intent or feel unable to remain safe. ) Risk Factors Assessment Male: No : Yes Do You Have Access To A Gun?: Yes Health Problems: Yes Mental Health Diagnoses: Yes Substance Use Disorders: No Previous Attempt: No Family History of Suicide: No Previous Psychiatric Hospitalization: No Protective Factors Assessment : Yes Employed: No Stable Relationships: Yes Supportive Family: Yes Interval History Identifying Information JOSEFA BAILEY is a 62-year-old woman who currently lives in [place] with her , has a history of failure to thrive resulting in medical admission in September 2022, anxiety and depression and was admitted on 12/29/22 16:18 on a 201 voluntary commitment for severe anxiety and depression with neurovegetative symptoms and over 90 lbs of weight loss in recent months with inability to function outside of the hospital. Chief Complaint "I'm more jittery". Review of Systems Sleep Information Total Hours of Sleep: 6.5 Meal Information Percent Meal Consumed - Breakfast: 80 Percent Meal Consumed - Lunch: 25 Percent Meal Consumed - Dinner: 75 Subjective Subjective Patient was seen & assessed and interval progress reviewed in a multidisci plinary team meeting with nursing and social work. For details, see the "Impression" section below. Physical Exam Psychiatric Orientation: alert, oriented to person, oriented to place and oriented to time Apperance: appropriately dressed and appropriately groomed Eye Contact: + fair eye contact Motor Behavior: + psychomotor retardation Speech: + abnormal rate/rhythm/volume of speech (quiet, brief) Affect: + depressed affect, + anxious affect and + constricted affect Mood: + depressed mood and + anxious mood Thought Process: clear/coherent thought process and + concrete thought process Thought Content: + preoccupation (somatic/GI) and reality based without delusions Suicidal Thoughts: denies suicidal thoughts Homicidal Thoughts: denies homicidal thoughts Hallucinations: no auditory hallucinations and no visual hallucinations Cognition: recent memory grossly intact, attention grossly intact and language grossly intact Estimated Intelligence: consistent with education level Insight: + limited insight Judgment: + limited judgement Vital Signs (Past 24 Hours) Last Vital Signs Temp 36.8 C 01/03/23 06:44 Pulse 76 01/03/23 09:59 Resp 16 01/03/23 06:44 BP 115/72 01/03/23 09:59 Pulse Ox 98 01/02/23 06:21 O2 Del Method Room Air 01/02/23 06:21 Results & Data ([facility]) Current Inpatient Medications Current Inpatient Medications: Current Inpatient Medications Acetaminophen (Acetaminophen 325 Mg Tab) 650 mg PO Q4H PRN PRN Reason: Headache or Minor Fever Stop: 01/28/23 16:16 Last Admin: 12/30/22 10:55 Dose: 650 mg Al Hydrox/Mg Hydrox/Simethicone (Aluminum/Magnesium Susp 30 Ml Udc) 30 ml PO Q4H PRN PRN Reason: GI Upset Stop: 01/28/23 16:16 Last Admin: 01/01/23 13:44 Dose: 30 ml Aripiprazole (Aripiprazole 5 Mg Tab) 2.5 mg PO QAM JASMYN Stop: 01/30/23 14:14 Last Admin: 01/03/23 08:46 Dose: 2.5 mg Bismuth Subsalicylate (Bismuth Subsalicylate Liqd 236 Ml) 15 ml PO PRN PRN PRN Reason: Loose Stool Stop: 01/28/23 16:16 Fexofenadine HCl (Fexofenadine Hcl 180 Mg Tab) 180 mg PO DAILY JASMYN Stop: 01/29/23 09:14 Last Admin: 01/03/23 08:46 Dose: 180 mg Fluoxetine HCl (Fluoxetine Hcl 20 Mg Cap) 60 mg PO QAM JASMYN Stop: 01/30/23 08:59 Last Admin: 01/03/23 08:46 Dose: 60 mg Hydroxyzine HCl (Hydroxyzine Hcl 25 Mg Tab) 25 mg PO Q4H PRN PRN Reason: Anxiety Stop: 01/28/23 16:16 Last Admin: 01/03/23 09:56 Dose: 25 mg Levothyroxine Sodium (Levothyroxine Sodium 100 Mcg Tablet) 100 mcg PO DAILYBB JASMYN Stop: 01/30/23 07:59 Last Admin: 01/03/23 08:45 Dose: 100 mcg Magnesium Hydroxide (Magnesium Hydroxide Susp 30 Ml Udc) 30 ml PO DAILY PRN PRN Reason: Constipation Stop: 01/28/23 16:16 Melatonin (Melatonin 3 Mg Tab) 3 mg PO HS PRN PRN Reason: Sleep Stop: 01/30/23 16:55 Mirtazapine (Mirtazapine Tab 15 Mg Tab) 30 mg PO HS JASMYN Stop: 02/01/23 21:59 Last Admin: 01/02/23 21:30 Dose: 30 mg Ondansetron HCl (Ondansetron 4 Mg Od Tab) 4 mg PO BID PRN PRN Reason: Nausea And Vomiting Stop: 02/01/23 10:35 Last Admin: 01/02/23 11:22 Dose: 4 mg Pantoprazole Sodium (Pantoprazole 40 Mg Tab) 40 mg PO QAM JASMYN Stop: 01/29/23 09:29 Last Admin: 01/03/23 08:47 Dose: 40 mg Saccharomyces Boulardii (Saccharomyces Boulardii 250 Mg Cap) 250 mg PO DAILY JASMYN Stop: 01/29/23 09:29 Last Admin: 01/03/23 08:47 Dose: 250 mg Simvastatin (Simvastatin 20 Mg Tab) 20 mg PO HS JASMYN Stop: 01/29/23 21:59 Last Admin: 01/02/23 21:42 Dose: 20 mg Sodium Chloride (Sodium Chloride 0.65% Na Soln 45 Ml ([place])) 1 - 2 sprays NA PRN PRN PRN Reason: Nasal Dryness/Congestion Stop: 01/28/23 16:16 Mental Health & Subst Abuse Tx Psychiatrist Name of Psychiatrist: [facility] - Dr. Aragon Psychiatrist's Date Of Appointment With Psychiatric Provider: 01/06/23 Time of Appointment with Psychiatrist: 3:00 PM Psychiatric Appointment Comment: This appointment is via telehealth. Therapist Name of Therapist: Lucy Hanley MS, SAFETY DEPOSIT SUPERVISOR, CRC Therapist's Date of Therapist Appointment: 01/08/23 Time of Therapist Appointment: 11:00 AM Therapy Appointment Comment: [address] [facility], [place] [address] Post Discharge Appointments Primary Care Physician Name Of Family Doctor/PCP: Sheyla Marcelo Primary Care Date of Future Appointment with PCP: 01/09/23 Time of Appointment with PCP: 10:00 AM, arrival time 9:45 AM Provider Appointment Comment: [address] [place] [address]
[2023-01-03] MEDS: MIRTAZAPINE TAB 15 MG TAB PO SCH (20:26)
[2023-01-03] MEDS: SIMVASTATIN 20 MG TAB PO SCH (20:27)
[2023-01-03] MEDS: OLANZapine 5 MG TABLET PO SCH (20:27)
[2023-01-04] MEDS: LEVOTHYROXINE SODIUM 100 MCG TABLET PO SCH (08:29)
[2023-01-04] MEDS: SACCHAROMYCES BOULARDII 250 MG CAP PO SCH (09:00)
[2023-01-04] MEDS: PANTOprazole 40 MG TAB PO SCH (09:00)
[2023-01-04] MEDS: FLUoxetine HCL 20 MG CAP PO SCH (09:00)
[2023-01-04] MEDS: FEXOFENADINE HCL 180 MG TAB PO SCH (09:00)
[2023-01-04] MEDS: hydrOXYzine HCl 25 MG TAB PO PRN ×3 (10:05→17:54)
--- NOTE | 2023-01-04 10:57 | Psychiatric Progress Note ---
Date of Service January 04, 2023 Impression / Recommendations Samuel Castro is a 62 year old woman with a history of depression and anxiety who was admitted for severe depression and anxiety with neurovegetative symptoms and over 90 lbs of weight loss in recent months with inability to function outside of the hospital and required medical admission due to hypotension from poverty of po intake. Diagnostically consistent with likely major depressive episode with anxious distress with poor appetite, poor sleep, anhedonia, low energy and decreased motivation. No current evidence for eating disorder component but continue to explore given reported 90 lbs weight loss over the last few months. She is deemed in need of psychiatric hospitalization for diagnostic clarification, safety and stabilization, medication management and development of further coping skills. 01/04/2023: Reports that her "mood is definitely better", though she is at pains to ensure that I know that she remains anxious. She slept better last night, feels rested this morning. Volunteers that she's "not feeling nauseated". She attributes no adverse effects to olanzapine that was started last night. Affect is noticeably less constricted, smiles a few times. Although we'd discussed possibility of stopping mirtazapine, in the context of this degree of improvement and the absence of any apparent adverse effects there appears no compelling rationale for making such a change. Family meeting is planned for tomorrow, which should be helpful in determining what pt's baseline has been. 01/03/2023: Presents as very anxious today, but doesn't offer any somatic complaints, including nausea or other GI side effects. Reports that she thinks both aripiprazole and mirtazapine are making her "more jittery". She does not want to continue aripiprazole, though she's willing to continue mirtazapine for now. Risks and benefits of, and alternatives to, the use of olanzapine (Zyprexa) for mood and potentially for anxiety were reviewed. This included but was not limited to issues known potentially to be associated with use of such medication, especially at high doses or with longer use, including sedation, weight gain, problems with glucose metabolism including Type II diabetes, problems with lipid metabolism, cardiac conduction problems, or rarely involuntary movements, parkinsonian symptoms, or even life-threatening Neuroleptic Malignant Syndrome. Discussed that these risks and the need for periodic lab monitoring largely overlap with those of aripiprazole but that olanzapine is more likely to be sedating and to increase appetite, both of which would be desirable in her case. The patient agreed to start a trial of olanzapine in place of aripiprazole. In trying to investigate whether she might be having some akathisia from aripiprazole, I was left with the strong impression that when she tells me something is "worse" that she often means "not better" - she's really not able to compare symptom severity at different times and struggles to describe symptoms at all. Observations by nursing are that both sleep and eating have improved. She presents as very distracted and repeats questions many times 01/02/2023: Ongoing depression and anxiety with increased nausea today but bowel movements more normalized. Struggling to attend to self-care such as showering due to depression and anxiety. Still with periods of heightened anxiety which seem largely driven by somatic concerns. Encouragingly is eating more. If nausea persists consider rechecking Na+ level given history of low Na+ but no other signs of hyponatremia at this time, in fact cognition seems to be improving as depression and anxiety get slightly less intense. She consents to increase of mirtazapine to further target insomnia and off-label for nausea benefits. Reviewed fasting glucose and lipid panel which were normal. 01/01/2023: Ongoing depression and anxiety but anxiety slightly improved today after addition of abilify, not requiring repeated doses of Vistaril throughout the day. Still wiht some GI symptoms, unclear if side effect from higher dose of fluoxetine vs 2/2 anxiety with somatic preoccupation. 12/31/2022: Ongoing depression and she reports significant increase in anxiety today-in part due to circumstance with another patient on the unit and in part due to suspected GI side effects from higher dose of fluoxetine. She wants to continue with fluoxetine. Discussed medication treatment options in detail for anxiety including increasing mirtazapine vs trial of gabapentin as off-label option for anxiety vs trial of low dose abilify or olanzapine for off-label use for anxiety and to help with depression augmentation and ruminative anxiety. Discussed risks, benefits and alternatives. Patient would like to try a few doses of abilify to see if this helps with anxiety as off-label use and as augmentation for depression. Reviewed side effects including but not limited to: movement (TD, NMS), cardiac (QTc prolongation), and metabolic (stroke, insulin resistance) and hyponatremia and necessity for fasting lipid and glucose labwork (if she finds helpful and wants to remain on it) and AIMS done with score of 0. (1) Recurrent severe major depressive disorder with anxiety: (2) Weight loss: (3) Hypotension: (4) Luis's thyroiditis: (5) Celiac disease: (6) GERD (gastroesophageal reflux disease): Plan 01/04/2023: * continue olanzapine 5 mg QHS - replaced aripiprazole on 01/03/2023 * continue mirtazapine 30 mg QHS * continue fluoxetine 60 mg daily * plan family meeting tomorrow 01/03/2023: * stop aripiprazole (possible akathisia) * start trial of olanzapine 5 mg QHS * continue mirtazapine 30 mg QHS for the time being * continue fluoxetine 60 mg daily 01/02/2023: Increase mirtazapine to 30mg HS. Continue fluoxetine and abilify. 01/01/2023: Continue current medications. Fasting glucose and lipid panel in the AM. 12/31/2022: Start abilify 2.5mg qd, continue fluoxetine 60mg qd, continue mirtazapine 15mg HS 12/30/2022: The patient was admitted to the [facility] ([facility] unit) on q15 min checks (behavioral with suicide precautions) for safety. The patient will participate in group, recreational, and milieu therapies and will be offered additional individual and family sessions as clinically appropriate. -Discontinue Tegretol -Continue with mirtazapine 15mg HS -Increase fluoxetine to 60mg daily -If poor appetite persists despite mirtazapine and fluoxetine adjustments then consider trial of olanzapine for depression augmentation versus marinol for appetite stimulation Inventory Assets Strengths: supportive relationships, willing to get treatment Needs: safety and stabilization, medication adjustment, additional coping skills, increased outpatient services Suicide Risk Level Suicide Risk Level: Moderate (q15 min suicide checks) (has a degree of depression but denies SI, feels safe in the hospital, able to safety contract and agrees to let nursing/staff know should they develop plan, intent or feel unable to remain safe. ) Risk Factors Assessment Male: No : Yes Do You Have Access To A Gun?: Yes Health Problems: Yes Mental Health Diagnoses: Yes Substance Use Disorders: No Previous Attempt: No Family History of Suicide: No Previous Psychiatric Hospitalization: No Protective Factors Assessment : Yes Employed: No Stable Relationships: Yes Supportive Family: Yes Interval History Identifying Information JOSEFA BAILEY is a 62-year-old woman who currently lives in [place] with her , has a history of failure to thrive resulting in medical admission in September 2022, anxiety and depression and was admitted on 12/29/22 16:18 on a 201 voluntary commitment for severe anxiety and depression with neurovegetative symptoms and over 90 lbs of weight loss in recent months with inability to function outside of the hospital. Chief Complaint "Yeah, things are better". Review of Systems Sleep Information Total Hours of Sleep: 9 Meal Information Percent Meal Consumed - Breakfast: 80 Percent Meal Consumed - Lunch: 25 Percent Meal Consumed - Dinner: 50 Subjective Subjective Patient was seen & assessed and interval progress reviewed in a multidisciplinary team meeting with nursing and social work. For details, see the "Impression" section below. Physical Exam Psychiatric Orientation: alert, oriented to person, oriented to place, oriented to time and cooperative Apperance: appropriately dressed and appropriately groomed Eye Contact: + fair eye contact Motor Behavior: no abnormal motor movements; no psychomotor retardation Speech: normal rate/rhythm/volume of speech Affect: mood congruent with affect Mood: + anxious mood and + dysphoric mood Thought Process: clear/coherent thought process and + concrete thought process Thought Content: reality based without delusions Suicidal Thoughts: denies suicidal thoughts Homicidal Thoughts: denies homicidal thoughts Hallucinations: no auditory hallucinations and no visual hallucinations Cognition: recent memory grossly intact, attention grossly intact and language grossly intact Estimated Intelligence: consistent with education level Insight: + limited insight Judgment: + limited judgement Vital Signs (Past 24 Hours) Last Vital Signs Temp 36.8 C 01/04/23 06:44 Pulse 84 01/04/23 06:45 Resp 16 01/04/23 06:44 BP 101/65 01/04/23 06:45 Pulse Ox 98 01/02/23 06:21 O2 Del Method Room Air 01/02/23 06:21 Results & Data ([facility]) Current Inpatient Medications Current Inpatient Medications: Current Inpatient Medications Acetaminophen (Acetaminophen 325 Mg Tab) 650 mg PO Q4H PRN PRN Reason: Headache or Minor Fever Stop: 01/28/23 16:16 Last Admin: 12/30/22 10:55 Dose: 650 mg Al Hydrox/Mg Hydrox/Simethicone (Aluminum/Magnesium Susp 30 Ml Udc) 30 ml PO Q4H PRN PRN Reason: GI Upset Stop: 01/28/23 16:16 Last Admin: 01/01/23 13:44 Dose: 30 ml Bismuth Subsalicylate (Bismuth Subsalicylate Liqd 236 Ml) 15 ml PO PRN PRN PRN Reason: Loose Stool Stop: 01/28/23 16:16 Fexofenadine HCl (Fexofenadine Hcl 180 Mg Tab) 180 mg PO DAILY JASMYN Stop: 01/29/23 09:14 Last Admin: 01/04/23 09:00 Dose: 180 mg Fluoxetine HCl (Fluoxetine Hcl 20 Mg Cap) 60 mg PO QAM JASMYN Stop: 01/30/23 08:59 Last Admin: 01/04/23 09:00 Dose: 60 mg Hydroxyzine HCl (Hydroxyzine Hcl 25 Mg Tab) 25 mg PO Q4H PRN PRN Reason: Anxiety Stop: 01/28/23 16:16 Last Admin: 01/04/23 10:05 Dose: 25 mg Levothyroxine Sodium (Levothyroxine Sodium 100 Mcg Tablet) 100 mcg PO DAILYBB JASMYN Stop: 01/30/23 07:59 Last Admin: 01/04/23 08:29 Dose: 100 mcg Magnesium Hydroxide (Magnesium Hydroxide Susp 30 Ml Udc) 30 ml PO DAILY PRN PRN Reason: Constipation Stop: 01/28/23 16:16 Melatonin (Melatonin 3 Mg Tab) 3 mg PO HS PRN PRN Reason: Sleep Stop: 01/30/23 16:55 Mirtazapine (Mirtazapine Tab 15 Mg Tab) 30 mg PO HS JASMYN Stop: 02/01/23 21:59 Last Admin: 01/03/23 20:26 Dose: 30 mg Olanzapine (Olanzapine 5 Mg Tablet) 5 mg PO HS JASMYN Stop: 02/02/23 21:59 Last Admin: 01/03/23 20:27 Dose: 5 mg Ondansetron HCl (Ondansetron 4 Mg Od Tab) 4 mg PO BID PRN PRN Reason: Nausea And Vomiting Stop: 02/01/23 10:35 Last Admin: 01/02/23 11:22 Dose: 4 mg Pantoprazole Sodium (Pantoprazole 40 Mg Tab) 40 mg PO QAM JASMYN Stop: 01/29/23 09:29 Last Admin: 01/04/23 09:00 Dose: 40 mg Saccharomyces Boulardii (Saccharomyces Boulardii 250 Mg Cap) 250 mg PO DAILY JASMYN Stop: 01/29/23 09:29 Last Admin: 01/04/23 09:00 Dose: 250 mg Simvastatin (Simvastatin 20 Mg Tab) 20 mg PO HS JASMYN Stop: 01/29/23 21:59 Last Admin: 01/03/23 20:27 Dose: 20 mg Sodium Chloride (Sodium Chloride 0.65% Na Soln 45 Ml ([place])) 1 - 2 sprays NA PRN PRN PRN Reason: Nasal Dryness/Congestion Stop: 01/28/23 16:16 Mental Health & Subst Abuse Tx Psychiatrist Name of Psychiatrist: [facility] - Dr. Aragon Psychiatrist's Date Of Appointment With Psychiatric Provider: 01/06/23 Time of Appointment with Psychiatrist: 3:00 PM Psychiatric Appointment Comment: This appointment is via telehealth. Therapist Name of Therapist: Lucy Hanley MS, [employer] Therapist's Date of Therapist Appointment: 01/08/23 Time of Therapist Appointment: 11:00 AM Therapy Appointment Comment: [address] [place] [address] Post Discharge Appointments Primary Care Physician Name Of Family Doctor/PCP: She[facility] Date of Future Appointment with PCP: 01/09/23 Time of Appointment with PCP: 10:00 AM, arrival time 9:45 AM Provider App[facility]ment [facility] [address] [facility] [place] [address]
[2023-01-04] MEDS: MIRTAZAPINE TAB 15 MG TAB PO SCH (20:29)
[2023-01-04] MEDS: OLANZapine 5 MG TABLET PO SCH (20:30)
[2023-01-04] MEDS: SIMVASTATIN 20 MG TAB PO SCH (20:30)
[2023-01-05] MEDS: FLUoxetine HCL 20 MG CAP PO SCH (08:24)
[2023-01-05] MEDS: LEVOTHYROXINE SODIUM 100 MCG TABLET PO SCH (08:24)
[2023-01-05] MEDS: SACCHAROMYCES BOULARDII 250 MG CAP PO SCH (08:24)
[2023-01-05] MEDS: FEXOFENADINE HCL 180 MG TAB PO SCH (08:24)
[2023-01-05] MEDS: PANTOprazole 40 MG TAB PO SCH (08:24)
--- NOTE | 2023-01-05 09:22 | Psychiatric Progress Note ---
Date of Service January 05, 2023 Impression / Recommendations Samuel Castro is a 62 year old woman with a history of depression and anxiety who was admitted for severe depression and anxiety with neurovegetative symptoms and over 90 lbs of weight loss in recent months with inability to function outside of the hospital and required medical admission due to hypotension from poverty of po intake. Diagnostically consistent with likely major depressive episode with anxious distress with poor appetite, poor sleep, anhedonia, low energy and decreased motivation. No current evidence for eating disorder component but continue to explore given reported 90 lbs weight loss over the last few months. She is deemed in need of psychiatric hospitalization for diagnostic clarification, safety and stabilization, medication management and development of further coping skills. 01/04/2023: Reports that her "mood is definitely better", though she is at pains to ensure that I know that she remains anxious. She slept better last night, feels rested this morning. Volunteers that she's "not feeling nauseated". She attributes no adverse effects to olanzapine that was started last night. Affect is noticeably less constricted, smiles a few times. Although we'd discussed possibility of stopping mirtazapine, in the context of this degree of improvement and the absence of any apparent adverse effects there appears no compelling rationale for making such a change. Family meeting is planned for tomorrow, which should be helpful in determining what pt's baseline has been. 01/03/2023: Presents as very anxious today, but doesn't offer any somatic complaints, including nausea or other GI side effects. Reports that she thinks both aripiprazole and mirtazapine are making her "more jittery". She does not want to continue aripiprazole, though she's willing to continue mirtazapine for now. Risks and benefits of, and alternatives to, the use of olanzapine (Zyprexa) for mood and potentially for anxiety were reviewed. This included but was not limited to issues known potentially to be associated with use of such medication, especially at high doses or with longer use, including sedation, weight gain, problems with glucose metabolism including Type II diabetes, problems with lipid metabolism, cardiac conduction problems, or rarely involuntary movements, parkinsonian symptoms, or even life-threatening Neuroleptic Malignant Syndrome. Discussed that these risks and the need for periodic lab monitoring largely overlap with those of aripiprazole but that olanzapine is more likely to be sedating and to increase appetite, both of which would be desirable in her case. The patient agreed to start a trial of olanzapine in place of aripiprazole. In trying to investigate whether she might be having some akathisia from aripiprazole, I was left with the strong impression that when she tells me something is "worse" that she often means "not better" - she's really not able to compare symptom severity at different times and struggles to describe symptoms at all. Observations by nursing are that both sleep and eating have improved. She presents as very distracted and repeats questions many times 01/02/2023: Ongoing depression and anxiety with increased nausea today but bowel movements more normalized. Struggling to attend to self-care such as showering due to depression and anxiety. Still with periods of heightened anxiety which seem largely driven by somatic concerns. Encouragingly is eating more. If nausea persists consider rechecking Na+ level given history of low Na+ but no other signs of hyponatremia at this time, in fact cognition seems to be improving as depression and anxiety get slightly less intense. She consents to increase of mirtazapine to further target insomnia and off-label for nausea benefits. Reviewed fasting glucose and lipid panel which were normal. 01/01/2023: Ongoing depression and anxiety but anxiety slightly improved today after addition of abilify, not requiring repeated doses of Vistaril throughout the day. Still wiht some GI symptoms, unclear if side effect from higher dose of fluoxetine vs 2/2 anxiety with somatic preoccupation. 12/31/2022: Ongoing depression and she reports significant increase in anxiety today-in part due to circumstance with another patient on the unit and in part due to suspected GI side effects from higher dose of fluoxetine. She wants to continue with fluoxetine. Discussed medication treatment options in detail for anxiety including increasing mirtazapine vs trial of gabapentin as off-label option for anxiety vs trial of low dose abilify or olanzapine for off-label use for anxiety and to help with depression augmentation and ruminative anxiety. Discussed risks, benefits and alternatives. Patient would like to try a few doses of abilify to see if this helps with anxiety as off-label use and as augmentation for depression. Reviewed side effects including but not limited to: movement (TD, NMS), cardiac (QTc prolongation), and metabolic (stroke, insulin resistance) and hyponatremia and necessity for fasting lipid and glucose labwork (if she finds helpful and wants to remain on it) and AIMS done with score of 0. (1) Recurrent severe major depressive disorder with anxiety: (2) Weight loss: (3) Hypotension: (4) Luis's thyroiditis: (5) Celiac disease: (6) GERD (gastroesophageal reflux disease): Plan 01/04/2023: * continue olanzapine 5 mg QHS - replaced aripiprazole on 01/03/2023 * continue mirtazapine 30 mg QHS * continue fluoxetine 60 mg daily * plan family meeting tomorrow 01/03/2023: * stop aripiprazole (possible akathisia) * start trial of olanzapine 5 mg QHS * continue mirtazapine 30 mg QHS for the time being * continue fluoxetine 60 mg daily 01/02/2023: Increase mirtazapine to 30mg HS. Continue fluoxetine and abilify. 01/01/2023: Continue current medications. Fasting glucose and lipid panel in the AM. 12/31/2022: Start abilify 2.5mg qd, continue fluoxetine 60mg qd, continue mirtazapine 15mg HS 12/30/2022: The patient was admitted to the [facility] ([facility]) on q15 min checks (behavioral with suicide precautions) for safety. The patient will participate in group, recreational, and milieu therapies and will be offered additional individual and family sessions as clinically appropriate. -Discontinue Tegretol -Continue with mirtazapine 15mg HS -Increase fluoxetine to 60mg daily -If poor appetite persists despite mirtazapine and fluoxetine adjustments then consider trial of olanzapine for depression augmentation versus marinol for appetite stimulation Inventory Assets Strengths: supportive relationships, willing to get treatment Needs: safety and stabilization, medication adjustment, additional coping skills, increased outpatient services Suicide Risk Level Suicide Risk Level: Moderate (q15 min suicide checks) (has a degree of depression but denies SI, feels safe in the hospital, able to safety contract and agrees to let nursing/staff know should they develop plan, intent or feel unable to remain safe. ) Risk Factors Assessment Male: No : Yes Do You Have Access To A Gun?: Yes Health Problems: Yes Mental Health Diagnoses: Yes Substance Use Disorders: No Previous Attempt: No Family History of Suicide: No Previous Psychiatric Hospitalization: No Protective Factors Assessment : Yes Employed: No Stable Relationships: Yes Supportive Family: Yes Interval History Identifying Information JOSEFA BAILEY is a 62-year-old woman who currently lives in [place] with her , has a history of failure to thrive resulting in medical admission in September 2022, anxiety and depression and was admitted on 12/29/22 16:18 on a 201 voluntary commitment for severe anxiety and depression with neurovegetative symptoms and over 90 lbs of weight loss in recent months with inability to function outside of the hospital. Chief Complaint "[]". Review of Systems Sleep Information Total Hours of Sleep: 8 Meal Information Percent Meal Consumed - Breakfast: 50 Percent Meal Consumed - Lunch: 25 Percent Meal Consumed - Dinner: 50 Subjective Subjective Patient was seen & assessed and interval progress reviewed with [treatment team] [nursing and social work] Physical Exam Psychiatric Orientation: alert, oriented x 3, oriented to person, oriented to place, oriented to time and cooperative Apperance: appropriately dressed and appropriately groomed Eye Contact: + fair eye contact Motor Behavior: no abnormal motor movements; no psychomotor retardation Speech: normal rate/rhythm/volume of speech Affect: + depressed affect, + anxious affect, + constricted affect and mood congruent with affect Mood: + depressed mood, + anxious mood and + dysphoric mood Thought Process: clear/coherent thought process and + concrete thought process Thought Content: + preoccupation (somatic/GI) and reality based without delusions Suicidal Thoughts: denies suicidal thoughts Homicidal Thoughts: denies homicidal thoughts Hallucinations: no auditory hallucinations and no visual hallucinations Cognition: recent memory grossly intact, attention grossly intact and language grossly intact Estimated Intelligence: consistent with education level Insight: + limited insight Judgment: + limited judgement Vital Signs (Past 24 Hours) Last Vital Signs Temp 37 C 01/05/23 06:48 Pulse 101 H 01/05/23 06:48 Resp 16 01/05/23 06:48 BP 108/59 L 01/05/23 06:48 Pulse Ox 98 01/02/23 06:21 O2 Del Method Room Air 01/02/23 06:21 Results & Data ([facility]) Current Inpatient Medications Current Inpatient Medications: Current Inpatient Medications Acetaminophen (Acetaminophen 325 Mg Tab) 650 mg PO Q4H PRN PRN Reason: Headache or Minor Fever Stop: 01/28/23 16:16 Last Admin: 12/30/22 10:55 Dose: 650 mg Al Hydrox/Mg Hydrox/Simethicone (Aluminum/Magnesium Susp 30 Ml Udc) 30 ml PO Q4H PRN PRN Reason: GI Upset Stop: 01/28/23 16:16 Last Admin: 01/01/23 13:44 Dose: 30 ml Bismuth Subsalicylate (Bismuth Subsalicylate Liqd 236 Ml) 15 ml PO PRN PRN PRN Reason: Loose Stool Stop: 01/28/23 16:16 Fexofenadine HCl (Fexofenadine Hcl 180 Mg Tab) 180 mg PO DAILY JASMYN Stop: 01/29/23 09:14 Last Admin: 01/05/23 08:24 Dose: 180 mg Fluoxetine HCl (Fluoxetine Hcl 20 Mg Cap) 60 mg PO QAM JASMYN Stop: 01/30/23 08:59 Last Admin: 01/05/23 08:24 Dose: 60 mg Hydroxyzine HCl (Hydroxyzine Hcl 25 Mg Tab) 25 mg PO Q4H PRN PRN Reason: Anxiety Stop: 01/28/23 16:16 Last Admin: 01/04/23 17:54 Dose: 25 mg Levothyroxine Sodium (Levothyroxine Sodium 100 Mcg Tablet) 100 mcg PO DAILYBB JASMYN Stop: 01/30/23 07:59 Last Admin: 01/05/23 08:24 Dose: 100 mcg Magnesium Hydroxide (Magnesium Hydroxide Susp 30 Ml Udc) 30 ml PO DAILY PRN PRN Reason: Constipation Stop: 01/28/23 16:16 Melatonin (Melatonin 3 Mg Tab) 3 mg PO HS PRN PRN Reason: Sleep Stop: 01/30/23 16:55 Mirtazapine (Mirtazapine Tab 15 Mg Tab) 30 mg PO HS JASMYN Stop: 02/01/23 21:59 Last Admin: 01/04/23 20:29 Dose: 30 mg Olanzapine (Olanzapine 5 Mg Tablet) 5 mg PO HS JASMYN Stop: 02/02/23 21:59 Last Admin: 01/04/23 20:30 Dose: 5 mg Ondansetron HCl (Ondansetron 4 Mg Od Tab) 4 mg PO BID PRN PRN Reason: Nausea And Vomiting Stop: 02/01/23 10:35 Last Admin: 01/02/23 11:22 Dose: 4 mg Pantoprazole Sodium (Pantoprazole 40 Mg Tab) 40 mg PO QAM JASMYN Stop: 01/29/23 09:29 Last Admin: 01/05/23 08:24 Dose: 40 mg Saccharomyces Boulardii (Saccharomyces Boulardii 250 Mg Cap) 250 mg PO DAILY JASMYN Stop: 01/29/23 09:29 Last Admin: 01/05/23 08:24 Dose: 250 mg Simvastatin (Simvastatin 20 Mg Tab) 20 mg PO HS JASMYN Stop: 01/29/23 21:59 Last Admin: 01/04/23 20:30 Dose: 20 mg Sodium Chloride (Sodium Chloride 0.65% Na Soln 45 Ml ([place])) 1 - 2 sprays NA PRN PRN PRN Reason: Nasal Dryness/Congestion Stop: 01/28/23 16:16 Mental Health & Subst Abuse Tx Psychiatrist Name of Psychiatrist: [facility] - Dr. Aragon Psychiatrist's Date Of Appointment With Psychiatric Provider: 01/06/23 Time of Appointment with Psychiatrist: 3:00 PM Psychiatric Appointment Comment: This appointment is via telehealth. Therapist Name of Therapist: Lucy Hanley MS, [employer] OPERATOR, [facility] Therapist's Date of Therapist Appointment: 01/08/23 Time of Therapist Appointment: 11:00 AM Therapy App[facility]ment [facility] [address] [facility] [place] [address] Post Discharge Appointments Primary Care Physician Name Of Family Doctor/PCP: [facility] Date of Future Appointment with PCP: 01/09/23 Time of Appointment with PCP: 10:00 AM, arrival time 9:45 AM Provider Appointment Comment: [phone] [place] [id number]
[2023-01-05] MEDS: hydrOXYzine HCl 25 MG TAB PO PRN (09:27)
--- NOTE | 2023-01-05 09:48 | Discharge Summary ---
Date of Service January 05, 2023 History of Present Illness Gloria continues to have low energy, poor appetite, tearfulness, low motivation, concentration difficulties, anxiety, anhedonia and depressed mood. She has been tolerating initiation of mirtazapine, which was started on the medical floor on 12/27/2022, but has not noticed any benefit yet. She wonders about additional medication adjustments given ongoing symptom severity. She required admission to the medical floor from 12/26/2022 through 12/29/2022 for low blood pressure which they felt was due to poor appetite from depression. Hospitalist providers reduced her thyroid medication and encouraged ongoing focus of treating depression and increasing appetite to help with hypotension. Additional recent history per my consult note on 12/27/2022: "Glroia was transferred to the medical floor yesterday from inpatient psychiatry due to low BP and need for IV fluids and monitoring. Today reports she feels ok, still receiving po fluids and with low appetite and poor sleep. Denies SI but struggling to function outside of the hospital. She thinks the fluoxetine may be helping a little but but has only been on this for about one month with gradual dose titration. Further recent history per H&P by Dr. Zuluaga on 12/26/2022:"Patient was directed to ED yesterday by outpatient therapist, reportedly as no progress with outpatient care. Patient continues to report low energy, low motivation toward any activities, has barely left home in past year. History of 90 lb weight loss but reportedly "forcing" self to eat/drink three times a day. Suicidal thoughts were denied. Patient was seen on consult service during recent medical hospitalization for weakness. At that time she was taking Paxil, Tegretol (unclear indication, denied seizures or bipolar), Buspar and high dose Wellbutrin 450 mg. Wellbutrin was tapered due to concerns may be contributing to low appetite and was essentially ineffective. She also has mild hyponatremia (Tegretol and Paxil could contribute). Patient has since started seeing Dr. Aragon at [facility] ([facility]) and is now taking Prozac (increase to 30 mg last week) and Ativan prn, unclear how often is taken." Physical Exam Psychiatric Orientation: alert, oriented to person, oriented to place, oriented to time and cooperative Apperance: appropriately dressed and appropriately groomed Eye Contact: + fair eye contact Motor Behavior: no abnormal motor movements; no psychomotor retardation Speech: normal rate/rhythm/volume of speech Affect: mood congruent with affect Mood: + anxious mood and + dysphoric mood Thought Process: clear/coherent thought process and + concrete thought process Thought Content: + preoccupation (somatic/GI) and reality based without delusions Suicidal Thoughts: denies suicidal thoughts Homicidal Thoughts: denies homicidal thoughts Hallucinations: no auditory hallucinations and no visual hallucinations Cognition: recent memory grossly intact, remote memory grossly intact, attention grossly intact and language grossly intact Estimated Intelligence: consistent with education level Insight: + limited insight Judgment: + limited judgement Vital Signs (Past 24 Hours) Last Vital Signs Temp 37 C 01/05/23 09:37 Pulse 72 01/05/23 09:37 Resp 16 01/05/23 09:37 BP 108/59 L 01/05/23 09:37 Pulse Ox 98 01/05/23 09:37 O2 Del Method Room Air 01/02/23 06:21 See admission H&P and DOD assessment. Principal Diagnosis Major Depressive Disorder, Single EpisodeRecurrent, Severe, without Psychotic Features with Anxious Distress Psychiatric Data See daily stay summary. In short, safety was maintained and the patient was cooperative with care. Medication changes included discontinuation of carbamazepine and lorazepam and start of olanzapine and they tolerated this well. A family session was held and safety plan was completed prior to discharge. 01/04/2023: Reports that her "mood is definitely better", though she is at pains to ensure that I know that she remains anxious. She slept better last night, feels rested this morning. Volunteers that she's "not feeling nauseated". She attributes no adverse effects to olanzapine that was started last night. Affect is noticeably less constricted, smiles a few times. Although we'd discussed possibility of stopping mirtazapine, in the context of this degree of improvement and the absence of any apparent adverse effects there appears no compelling rationale for making such a change. Family meeting is planned for tomorrow, which should be helpful in determining what pt's baseline has been. 01/03/2023: Presents as very anxious today, but doesn't offer any somatic complaints, including nausea or other GI side effects. Reports that she thinks both aripiprazole and mirtazapine are making her "more jittery". She does not want to continue aripiprazole, though she's willing to continue mirtazapine for now. Risks and benefits of, and alternatives to, the use of olanzapine (Zyprexa) for mood and potentially for anxiety were reviewed. This included but was not limited to issues known potentially to be associated with use of such medication, especially at high doses or with longer use, including sedation, weight gain, problems with glucose metabolism including Type II diabetes, problems with lipid metabolism, cardiac conduction problems, or rarely involuntary movements, parkinsonian symptoms, or even life-threatening Neuroleptic Malignant Syndrome. Discussed that these risks and the need for periodic lab monitoring largely overlap with those of aripiprazole but that olanzapine is more likely to be sedating and to increase appetite, both of which would be desirable in her case. The patient agreed to start a trial of olanzapine in place of aripiprazole. In trying to investigate whether she might be having some akathisia from aripiprazole, I was left with the strong impression that when she tells me something is "worse" that she often means "not better" - she's really not able to compare symptom severity at different times and struggles to describe symptoms at all. Observations by nursing are that both sleep and eating have improved. She presents as very distracted and repeats questions many times 01/02/2023: Ongoing depression and anxiety with increased nausea today but bowel movements more normalized. Struggling to attend to self-care such as showering due to depression and anxiety. Still with periods of heightened anxiety which seem largely driven by somatic concerns. Encouragingly is eating more. If nausea persists consider rechecking Na+ level given history of low Na+ but no other signs of hyponatremia at this time, in fact cognition seems to be improving as depression and anxiety get slightly less intense. She consents to increase of mirtazapine to further target insomnia and off-label for nausea benefits. Revi ewed fasting glucose and lipid panel which were normal. 01/01/2023: Ongoing depression and anxiety but anxiety slightly improved today after addition of abilify, not requiring repeated doses of Vistaril throughout the day. Still wiht some GI symptoms, unclear if side effect from higher dose of fluoxetine vs 2/2 anxiety with somatic preoccupation. 12/31/2022: Ongoing depression and she reports significant increase in anxiety today-in part due to circumstance with another patient on the unit and in part due to suspected GI side effects from higher dose of fluoxetine. She wants to continue with fluoxetine. Discussed medication treatment options in detail for anxiety including increasing mirtazapine vs trial of gabapentin as off-label option for anxiety vs trial of low dose abilify or olanzapine for off-label use for anxiety and to help with depression augmentation and ruminative anxiety. Discussed risks, benefits and alternatives. Patient would like to try a few doses of abilify to see if this helps with anxiety as off-label use and as augmentation for depression. Reviewed side effects including but not limited to: movement (TD, NMS), cardiac (QTc prolongation), and metabolic (stroke, insulin resistance) and hyponatremia and necessity for fasting lipid and glucose labwork (if she finds helpful and wants to remain on it) and AIMS done with score of 0. Day of Discharge Assessment Today the patient voices readiness for discharge. They note improvement in mood and deny thoughts to harm self or others. Thoughts remain organized and they are improved from admission. There is no evidence of psychosis. They agree to take mediations as prescribed and keep follow-up appointments. They are stable for discharge to outpatient level of care. Advance Directives Advance Directives Information Provided: Yes Advance Directives: No Mental Health Advance Directive: No Advance Directives on File: No Living Will: No Power of Atomizer Assembler: No Advance Directives Reason:: Declines as Mental Health Visit. Suicide Risk Level Suicide Risk Level: Low (q15 min observation checks) Suicide Risk Level Comments: denies any suicidal thoughts Risk Factors Assessment Male: No : Yes Do You Have Access To A Gun?: Yes Health Problems: Yes Mental Health Diagnoses: Yes Substance Use Disorders: No Previous Attempt: No Family History of Suicide: No Previous Psychiatric Hospitalization: No Protective Factors Assessment : Yes Responsible for Young Children: No Employed: No Stable Relationships: Yes Supportive Family: Yes Tobacco Cessation at Discharge Tobacco Cessation Medication Prescribed at Discharge: Not Applicable/Non-Smoker Total Time Total Time Spent: Greater Than 30 Minutes Total Time Includes: Examination of the patient, Discharge Planning, Medication Reconciliation and As well as (documentation) Discharge Data Lab Results 01/02/23 07:05 Fasting Glucose 88 Triglycerides 59 Cholesterol 151 LDL Cholesterol, Calc 94 VLDL Cholesterol, Calc 12 HDL Cholesterol 45 Cholesterol/HDL Ratio 3.4 Hospital Course (1) Recurrent severe major depressive disorder with anxiety: (2) Weight loss: (3) Hypotension: (4) Luis's thyroiditis: (5) Celiac disease: (6) GERD (gastroesophageal reflux disease): Mental Health & Subst Abuse Tx Psychiatrist Name of Psychiatrist: [facility] - Dr. Aragon Psychiatrist's Date Of Appointment With Psychiatric Provider: 01/06/23 Time of Appointment with Psychiatrist: 3:00 PM Psychiatric Appointment Comment: This appointment is via telehealth. Psychiatrist Release of Information: Obtained, Reviewed and Signed Therapist Name of Therapist: Lucy Hanley MS, DRAPERY OPERATOR, [facility] Therapist's Date of Therapist Appointment: 01/08/23 Time of Therapist Appointment: 11:00 AM Therapy Appointment Comment: [address] [place] [id number] Therapist Release of Information: Obtained, Reviewed and Signed Post Discharge Appointments Primary Care Physician Name Of Family Doctor/PCP: Sheyla Marcelo [facility] Date of Future Appointment with PCP: 01/09/23 Time of Appointment with PCP: 10:00 AM, arrival time 9:45 AM Provider Appointment Comment: [address] [place] [id number] Primary Care Release of Information: Obtained, Reviewed and Signed Smoking Cessation Counseling Tobacco Cessation Medication Prescribed at Discharge: Not Applicable/Non-Smoker Contact Information Discharge Discharge [address] [address] [place] [address] Discharge Plan Discharge Items Patient Disposition: Home - Self-Care Reason For Visit: MDD Discharge Diagnosis: Major Depressive Disorder, Recurrent, Severe, without Psychotic Features with Anxious Distress Activity: Resume your previous activity Non-emergency contact: Primary Care Provider and Psychiatrist Call non-emergency contact if: you have any medication questions and your symptoms worsen Follow-up/Referrals: Jameel Marcelo MD [Primary Care Provider] - Diet: Regular Addtl Attending Provider Instructions: SPECIAL CARE INSTRUCTIONS: 1. Follow through with your scheduled aftercare appointments. If unable to keep an appointment, please call to reschedule. 2. Take your medication only as prescribed. Medication should not be changed or stopped without the approval of your doctor. In the event of worsening symptoms or concerns about side effects, contact your doctor immediately. 3. Utilize new healthy coping skills, anger management skills, and stress management skills learned during your hospitalization. Journal feelings and process them with a support person. Identify stressors or situations that may result in relapse, deterioration or inappropriate behaviors and develop a plan to deal with those issues. 4. If your coping skills are ineffective and you are in crisis, contact your outpatient providers for direction. If unable to reach your providers, please call the [facility] CRISIS LINE AT , go to the [facility] walk-in center at [address], [address], [place], or go to the closest Emergency Room. 5. Avoid alcohol and un-prescribed drugs. 6. You have been provided with the Mental Health Advance Directives Pamphlet for your review. 7. Your condition is stable for discharge to outpatient level of care, but recovery is an ongoing process. Ifthoughts to harm yourself or others return, follow the safety plan developed during your stay. Planning for a safe return home includes securing weapons. Our treatment team recommends weaponsbe removed from the home until your outpatient provider reassesses your progress. In rare cases where the items themselvescannot be removed, guns and ammunitionshould be secured separatelyand keys stored by a reliable personoutside of the home. If you were admitted on an involuntary commitment, the police or other legal authorities may be involved in this process. AFTERCARE APPOINTMENTS: * Please call your insurance company prior to your scheduled appointment to confirm your aftercare providers are covered. Take your insurance information to your appointments. WHO TO CALL AND WHEN: Medical Emergencies: For questions or emergencies related to your hospital stay, please contact the Inpatient Behavioral Health Unit at [phone]. A occupational nurse is on-call 29/12 for the Behavioral Health Unit for emergencies At any time you feel your situation is an emergency, you may also call 911 immediately. Pending Studies at Discharge: No Stand-Alone Forms: My [employer], Smoking Cessation Medications and DC Order Prescriptions: New olanzapine 5 mg Tablet 5 mg PO HS 3 Days Qty: 3 0RF melatonin 3 mg Tablet 3 mg PO HS PRN (Reason: sleep) 30 Days Qty: 30 0RF levothyroxine [Synthroid] 100 mcg Tablet 100 mcg PO DAILYBB 30 Days Qty: 30 0RF hydroxyzine HCl 25 mg Tablet 25 mg PO Q4H PRN (Reason: insomnia) 30 Days Qty: 90 0RF mirtazapine 15 mg Tablet 30 mg PO HS 30 Days Qty: 60 0RF fluoxetine 20 mg Capsule 60 mg PO QAM 30 Days Qty: 90 0RF pantoprazole 40 mg Tablet,Delayed Release (Dr/Ec) 40 mg PO QAM 30 Days Qty: 30 0RF Continued simvastatin 20 mg tablet 20 mg PO HS Qty: 30 fluticasone propionate 50 units See Rx Instructions .ROUTE .COMPLEX PRN (Reason: rhinitis) Rx Instructions: 2 sparys into each nostril everyday fexofenadine 180 mg Tablet 180 mg PO DAILY Saccharomyces boulardii [Florastor] 250 mg Capsule 250 mg PO DAILY Qty: 30 0RF Discontinued lorazepam 0.5 mg tablet 0.5 mg PO DAILY PRN (Reason: Anxiety) pantoprazole 20 mg tablet,delayed release (DR/EC) 20 mg PO DAILYBB fluoxetine 10 mg capsule 30 mg PO DAILY acetaminophen 325 mg Tablet 650 mg PO Q4H PRN (Reason: fever or pain) Qty: 30 0RF carbamazepine 200 mg Tablet 300 mg PO QPM Qty: 45 0RF Discharge Orders: Discharge Order (Routine); Ordered 01/05/23 Ordered By: Steve Wharton Admission Data Admit Date/Time: 12/29/22 16:18 Attending Provider: Nicolette Cresw Admit Provider: Nicolette Crews Primary Care Provider: Jameel Marcelo Other Interventions: PSY Interdisciplinary Discharge Planning Last Done: 01/05/23 09:39 Coding Level of Care Code 19323 D/C day mgmt > 30 min Diagnoses Recurrent severe major depressive disorder with anxiety F33.2; F41.9 Weight loss R63.4 Hypotension I95.9 Luis's thyroiditis E06.3 Celiac disease K90.0 GERD (gastroesophageal reflux disease) K21.9 Time Spent (min) 33
== END 2023-01-05 10:24 | disposition home or self-care (01) | DRG 885 ==
LOC: 3S 16:18

== ENCOUNTER 2024-12-08 12:10 | Observation (INO) ==
[2024-12-08 13:20] LABS: Hematocrit (blood only) 38.7 % (37.0-47.0); Hemoglobin 12.9 g/dl (12.0-16.0); Immature Granulocytes # (auto) 0.03 K/uL (0.01-0.20); Immature Granulocytes % (auto) 0.3 %; Mean Corpuscular Hemoglobin 29.6 pg (25.0-34.0); Mean Corpuscular Volume 88.8 fL (80.0-100.0); Platelet Count 300 K/uL (130-400); RDW Standard Deviation 47.6 fL (36.4-46.3); Red Blood Count 4.36 M/uL (4.20-5.40); White Blood Count 10.38 K/ul (4.8-10.8)
[2024-12-08 13:47] LABS: Alanine Aminotransferase 71.0 U/L (7-52); Albumin Globulin Ratio 1.3 (0.9-2); Alkaline Phosphatase 86.0 U/L (34-104); Anion Gap 8.0 (3-11); Bilirubin,Total 1.1 mg/dl (0.2-1.0); Blood Urea Nitrogen 11.0 mg/dl (6-23); Calcium 9.2 mg/dl (8.6-10.3); Carbon Dioxide 28.0 mmol/L (21-32); Chloride 101.0 mmol/L (98-107); Creatinine Clr Calc Pharmacy 64.7 ml/min; Globulin 3.0 gm/dl (2.5-4.0); Glucose 148.0 mg/dl (70-99(Fasting)); Lipase 9.0 U/L (11-82); Magnesium 1.8 mg/dl (1.7-2.4); Potassium 3.1 mmol/L (3.5-5.1); Sodium 137.0 mmol/L (136-145); Total Protein 7.0 gm/dl (6.0-8.3)
--- NOTE | 2024-12-08 13:55 | Emergency Department Note ---
Impression & Plan Abdominal pain, acute, epigastric, Lethargic, Acute hypokalemia, Transaminitis ED Provider Note HISTORY OF PRESENT ILLNESS: Patient is a 64-year-old female presenting with epigastric abdominal pain. Patient reports that she has been having pain in this area intermittently for the last few weeks, but states that since yesterday her pain has been significantly worse. Reports nausea but denies any vomiting. Denies any diarrhea. reports that the patient is sleeping for more than 20 hours a day. She reports she feels very rundown and fatigued and does not have the energy to get up out of bed. Denies any fevers. Denies any dysuria or hematuria. She still has her gallbladder and appendix. Denies any chest pain or shortness of breath. She reports that she has recently had medication adjustments to her thyroid medication and her antidepressant medications. ROS: as above PHYSICAL EXAM: Constitutional: Patient appears in no acute distress. HENT: Head: Normocephalic and atraumatic. Eyes: EOMI, PERRL Mouth/Throat: Mucous membranes moist. Neck: Trachea midline. Neck supple. Cardiovascular: RRR, No murmurs, rubs or gallops. Intact distal pulses. Pulmonary/Chest: No respiratory distress. Breath sounds clear and equal bilaterally. No wheezes or rales. Abdominal: Abdomen soft, no rebound or guarding. Epigastric and RUQ abdominal pain Musculoskeletal: No edema, tenderness or deformity noted. Skin: Warm and dry. No rash, erythema, pallor or cyanosis Psychiatric: Appropriate mood and affect for situation. Neurological: Alert and keenly responsive. CN II-XII grossly intact, moving all extremities equally and fully. MDM: - Vitals signs showed hypotension. - History obtained via patient. History as above. - Chronic conditions affecting care: hyperparathyroidism; celiac disease; HLD; anxiety/depression - Differential diagnoses include, but are not limited to: Cholecystitis; choledocholithiasis; pancreatitis; ACS; electrolyte abnormality; hypothyroidism - Order placed for continuous cardiac monitoring. At this time, monitor showed rate of 64 bpm with normal sinus rhythm, per my interpretation. - External medical records reviewed. Psychiatry discharge summary dated 01/05/2023 was reviewed. Patient was admitted that time for major depressive disorder - EKG image interpreted by myself showed normal sinus rhythm. Rate 70 bpm. QT 442. No acute ischemic changes. - Laboratory workup interpreted by myself showed normal WBC; slight hypokalemia (K 3.1); transaminitis (AST 68; ALT 71); elevated total bilirubin (1.1); normal lipase; normal troponin; low TSH (0.053) with normal T4 - Patient given 4 mg IV zofran, 1L NS, and 4 mg IV morphine in ER. - UA negative for infection - Lyme/babesia/anaplasmosis negative - CT abdomen/pelvis with IV contrast negative for acute pathology. Normal appendix. No bowel obstruction or bowel wall thickening. Gallbladder was unremarkable. - Discussed results with the patient. On reassessment, she does not feel any better. She does not feel comfortable going home, as she feels like she is unable to do any of her activities of daily living secondary to her fatigue. Will discuss case with hospitalist service. - Discussion was had with machine adjuster leader case trim about patient's case and need for admission - Hospitalist consulted for admission - Patient admitted to [facility] hospitalist service for further evaluation and management. ASSESSMENT AND PLAN: Diagnosis: Acute epigastric abdominal pain; lethargic; acute hypokalemia; transaminitis Plan: Admit Past Med/Surg History Problem List (Updated 12/08/24 @ 17:27 by Jhoana Saldana MD) Transaminitis (Acute) Acute hypokalemia (Acute) Lethargic (Acute) Abdominal pain, acute, epigastric (Acute) Recurrent severe major depressive disorder with anxiety Hypotension Major depress dis, severe Hyponatremia (Acute) GERD (gastroesophageal reflux disease) HLD (hyperlipidemia) Celiac disease Osteoporosis (Chronic) Vitamin D deficiency (Chronic) Secondary hyperparathyroidism (Chronic) Adult celiac disease (Chronic) Luis's thyroiditis (Chronic) Psoriasis (Chronic) Medical History Adult celiac disease Bipolar disorder Celiac disease GERD (gastroesophageal reflux disease) GERD (gastroesophageal reflux disease) HLD (hyperlipidemia) Hypokalemia Hyponatremia Hypothyroidism Osteoporosis Secondary hyperparathyroidism Vitamin B12 deficiency Vitamin D deficiency Weakness Weakness Surgical History No pertinent past surgical history Family History Other Family history non-contributory Social History Smoking Status: Former smoker Tobacco Type: Cigarettes Second Hand Exposure: No; Do You Dip or Chew Tobacco: No; Hx Alcohol Use: No Hx Substance Use: No Preferred Language: Indonesian Communication Ability: Effective Wired Sweatband Cutter Required: No Beliefs That Will Affect Care: None Current Living Situation: Spouse Feels Safe at Home: Yes Gender Identity: Female Assistive Devices: Glasses Allergies Allergies Allergy/AdvReac Type Severity Reaction Status Date / Time gluten Allergy Intermediate CELIAC Verified 09/26/22 20:25 DISEASE metronidazole Allergy Intermediate RASH Verified 09/26/22 20:25 Home Meds Home Medications Medication Instructions Recorded Confirmed simvastatin 20 mg tablet 20 mg PO HS #30 tabs 03/07/19 12/08/24 fexofenadine 180 mg tablet 0 mg PO DAILY 12/25/22 12/08/24 fluticasone propionate 0 spray intranasal DAILY PRN Other 12/25/22 12/08/24 ##0 Saccharomyces boulardii 250 mg 0 mg PO DAILY 12/08/24 12/08/24 capsule (Florastor) cholecalciferol (vitamin D3) 1,250 50,000 unit PO MONTHLY 12/08/24 12/08/24 mcg (50,000 unit) capsule fluoxetine 20 mg capsule 20 mg PO DAILY 12/08/24 12/08/24 fluoxetine 40 mg capsule 40 mg PO DAILY 12/08/24 12/08/24 levothyroxine 75 mcg tablet 75 mcg PO DAILY 12/08/24 12/08/24 lorazepam 1 mg tablet 0.5 mg PO BID 12/08/24 12/08/24 ondansetron 4 mg disintegrating 4 mg PO Q8H PRN Nausea 12/08/24 12/08/24 tablet pantoprazole 40 mg tablet,delayed 40 mg PO DAILY 12/08/24 12/08/24 release Results & Data (ED) Vital Signs Vital Signs - 24 hr 12/08/24 12:23 12/08/24 14:00 12/08/24 14:00 Temperature 36.7 C Temperature Source Temporal Artery Scan Pulse Rate 87 62 Pulse Rate [Finger] 61 Pulse Rhythm [Finger] Regular Pulse Strength [Finger] Normal Respiratory Rate 18 18 Respiratory Effort / Characteristics Non-Labored Spontaneous Non-Labored Respiratory Depth Normal Normal Respiratory Pattern Regular Blood Pressure 93/64 L Blood Pressure [Right Arm] 133/62 Blood Pressure Mean 73 Blood Pressure Mean [Right Arm] 85 Pulse Oximetry 99 99 Oxygen Delivery Method Room Air Room Air Oxygen Flow Rate Sepsis Recent Fever Within 48 Hours No Sepsis New/Unexplained Change in Mental Status No Sepsis Action Taken by Nursing No Action Required 12/08/24 14:30 12/08/24 15:00 Temperature Temperature Source Pulse Rate Pulse Rate [Finger] 65 63 Pulse Rhythm [Finger] Regular Regular Pulse Strength [Finger] Normal Normal Respiratory Rate 18 18 Respiratory Effort / Characteristics Non-Labored Non-Labored Respiratory Depth Normal Normal Respiratory Pattern Regular Regular Blood Pressure Blood Pressure [Right Arm] 113/66 126/73 Blood Pressure Mean Blood Pressure Mean [Right Arm] 81 90 Pulse Oximetry 100 99 Oxygen Delivery Method Room Air Room Air Oxygen Flow Rate 0 Sepsis Recent Fever Within 48 Hours Sepsis New/Unexplained Change in Mental Status Sepsis Action Taken by Nursing Laboratory Data 12/08/24 13:03 12/08/24 13:03 Lab Results 12/08/24 12/08/24 Range/Units 13:03 15:45 WBC 10.38 (4.8-10.8) K/ul RBC 4.36 (4.20-5.40) M/uL Hgb 12.9 (12.0-16.0) g/dl Hct 38.7 (37.0-47.0) % MCV 88.8 (80.0-100.0) fL MCH 29.6 (25.0-34.0) pg MCHC 33.3 (32.0-36.0) g/dL RDW Std Deviation 47.6 H (36.4-46.3) fL RDW Coeff of Karla 14.6 H (11.5-14.5) % Plt Count 300 (130-400) K/uL MPV 10.4 (9.4-12.4) fL Immature Gran % (Auto) 0.3 % Neut % (Auto) 72.5 % Lymph % (Auto) 16.7 % Garrett % (Auto) 7.7 % Eos % (Auto) 2.2 % Baso % (Auto) 0.6 % Neut # (Auto) 7.53 H (1.40-6.50) K/uL Lymph # (Auto) 1.73 (1.20-3.40) K/uL Garrett # (Auto) 0.80 H (0.11-0.59) K/uL Eos # (Auto) 0.23 (0.00-0.50) K/uL Baso # (Auto) 0.06 (0.00-0.20) K/uL Immature Gran # (Auto) 0.03 (0.01-0.20) K/uL Sodium 137 (136-145) mmol/L Potassium 3.1 L (3.5-5.1) mmol/L Chloride 101 (98-107) mmol/L Carbon Dioxide 28 (21-32) mmol/L Anion Gap 8 (3-11) BUN 11 (6-23) mg/dl Creatinine 0.81 (0.6-1.2) mg/dl Est Cr Clr Drug Dosing 64.7 ml/min eGFR 80.51 BUN/Creatinine Ratio 13.6 (10-20) Glucose 148 H (70-99(Fasting)) mg/dl Lactate 1.6 (0.4-2.0) mmol/L Calcium 9.2 (8.6-10.3) mg/dl Magnesium 1.8 (1.7-2.4) mg/dl Total Bilirubin 1.1 H (0.2-1.0) mg/dl AST 68 H (13-39) U/L ALT 71 H (7-52) U/L Alkaline Phosphatase 86 (34-104) U/L Troponin I High Sens 4.1 (0-14) pg/ml Total Protein 7.0 (6.0-8.3) gm/dl Albumin 4.0 (3.4-5.0) gm/dl Globulin 3.0 (2.5-4.0) gm/dl Albumin/Globulin Ratio 1.3 (0.9-2) Lipase 9 L (11-82) U/L TSH 0.053 L (0.300-4.500) uIu/ml Free T4 1.58 (0.61-1.60) ng/dl Urine Color Yellow Urine Appearance Clear (Clear) Urine pH 6.0 (4.5-7.5) Ur Specific [place] > 1.045 H (1.000-1.030) Urine Protein Negative (Negative) Urine Glucose (UA) Negative (Negative) Urine Ketones Negative (Negative) Urine Blood Negative (Negative) Urine Nitrite Negative (Negative) Urine Bilirubin Negative (Negative) Urine Urobilinogen Negative (Negative) Ur Leukocyte Esterase Negative (Negative) Urine Comment Anaplasma Smear See Comment Babesia Smear See Comment Lyme Disease Screen Negative (Negative) Administered Medications Discontinued Medications Sodium Chloride (Nss) 1,000 mls @ 999 mls/hr IV .Q1H1M ONE Stop: 12/08/24 14:55 Last Infusion: 12/08/24 15:05 Dose: Infused Documented By: Admin: 12/08/24 14:04 Dose: 999 mls/hr Documented By: GE Ioversol (Optiray 320 100ml) 93 ml IV ONCE ONE Stop: 12/08/24 14:15 Last Admin: 12/08/24 14:14 Dose: 93 ml Documented By: NYLA Morphine Sulfate (Morphine Sulfate 4 Mg/Ml 1 Ml Carp\Vial) 4 mg IV NOW STA Stop: 12/08/24 13:56 Last Admin: 12/08/24 14:06 Dose: 4 mg Documented By: GE Ondansetron HCl (Ondansetron Inj 2 Mg/Ml 2 Ml Vial) 4 mg IV NOW STA Stop: 12/08/24 13:56 Last Admin: 12/08/24 14:04 Dose: 4 mg Documented By: GE Imaging Data Radiologist's Impression: Abdomen/Pelvis CT 12/08/24 12:51 CT SCAN OF THE ABDOMEN AND PELVIS WITH IV CONTRAST CLINICAL HISTORY: Epigastric and right upper quadrant pain. COMPARISON STUDY: None. TECHNIQUE: Following the IV administration of 94 cc of Optiray 320, CT scan of the abdomen and pelvis is performed from the lung bases to the proximal femora. Images are reviewed in the axial, sagittal, and coronal planes. IV contrast was administered without complication. A dose lowering technique was utilized adhering to the principles of ALARA. CT DOSE: 1213.87 mGy.cm FINDINGS: Lung bases: The size of the heart is normal. There is no pericardial effusion. The lung bases are clear. Liver: The liver morphology is normal and there are no hepatic lesions. There is no intrahepatic biliary ductal dilatation. The hepatic veins and portal veins are patent. Gallbladder: Unremarkable. Spleen: Normal in size and attenuation. Pancreas: There are no pancreatic lesions. No pancreatic ductal dilatation is present. Adrenal glands: Thickening of the adrenal glands is benign. Kidneys: There are no renal lesions. There is no hydronephrosis. The kidneys enhance symmetrically. Abdominal vasculature: The caliber of the abdominal aorta is normal. Major vasculature is patent. There is moderate atherosclerotic plaque within the abdominal aorta. Bowel: The caliber and wall thickness of small and large bowel are normal. The appendix is normal. Peritoneum: There is no intraperitoneal free air or abdominal ascites. Lymphadenopathy: None. Skeletal structures: No lytic or blastic lesions are seen. IMPRESSION: 1. No acute process within the abdomen or pelvis. 2. No bowel obstruction. No bowel wall thickening. Normal appendix. ACT 112: Negative or not required by law. Electronically signed by: Prakash Ortiz M.D. 12/08/2024 2:39 PM Discharge Plan Visit Data Chief Complaint: Abdominal Pain Stated Complaint: STOMACH PAIN, THYROID TROUBLE ED Provider: Jhoana Saldana Discharge Problem: Abdominal pain, acute, epigastric, Lethargic, Acute hypokalemia, Transaminitis Condition: Fair Forms Stand Alone Forms: My [facility] [employer] Prescriptions Prescriptions: No Action simvastatin 20 mg tablet 20 mg PO HS Qty: 30 fluticasone propionate 50 units 0 spray intranasal DAILY PRN (Reason: Other) Qty: 0 Patient Comments: 12/06- OTC unable to verify Rx Instructions: 2 sparys into each nostril everyday fexofenadine 180 mg Tablet 0 mg PO DAILY Patient Comments: 12/06- OTC unable to verify fluoxetine 40 mg capsule 40 mg PO DAILY Rx Instructions: take with 20mg for 60mg dose levothyroxine 75 mcg tablet 75 mcg PO DAILY pantoprazole 40 mg tablet,delayed release (DR/EC) 40 mg PO DAILY lorazepam 1 mg tablet 0.5 mg PO BID ondansetron 4 mg tablet,disintegrating 4 mg PO Q8H PRN (Reason: Nausea) fluoxetine 20 mg capsule 20 mg PO DAILY Rx Instructions: take with 40 mg for 60mg dose cholecalciferol (vitamin D3) 1,250 mcg (50,000 unit) capsule 50,000 unit PO MONTHLY Saccharomyces boulardii [Florastor] 250 mg capsule 0 mg PO DAILY Patient Comments: 12/06- OTC unable to verify Referrals Referrals: Amari Baer MD [Primary Care Provider] -
[2024-12-08 14:02] LABS: Thyroid Stimulating Hormone 0.053 uIu/ml (0.300-4.500)
[2024-12-08] MEDS: SODIUM CHLORIDE 0.9% 1,000 ML IV ONE (14:04)
[2024-12-08] MEDS: ONDANSETRON INJ 2 MG/ML 2 ML VIAL IV STA (14:04)
[2024-12-08] MEDS: MoRPHine SULFATE 4 MG/ML 1 ML CARP\\VIAL IV STA (14:06)
[2024-12-08] MEDS: OPTIRAY 320 100ml IV ONE (14:14)
--- NOTE | 2024-12-08 14:42 | CT Scan Report ---
CT SCAN OF THE ABDOMEN AND PELVIS WITH IV CONTRAST CLINICAL HISTORY: Epigastric and right upper quadrant pain. COMPARISON STUDY: None. TECHNIQUE: Following the IV administration of 94 cc of Optiray 320, CT scan of the abdomen and pelvi s is performed from the lung bases to the proximal femora. Images are reviewed in the axial, sagittal , and coronal planes. IV contrast was administered without complication. A dose lowering technique wa s utilized adhering to the principles of ALARA. CT DOSE: 1213.87 mGy.cm FINDINGS: Lung bases: The size of the heart is normal. There is no pericardial effusion. The lung bases are sameera ar. Liver: The liver morphology is normal and there are no hepatic lesions. There is no intrahepatic bili tanner ductal dilatation. The hepatic veins and portal veins are patent. Gallbladder: Unremarkable. Spleen: Normal in size and attenuation. Pancreas: There are no pancreatic lesions. No pancreatic ductal dilatation is present. Adrenal glands: Thickening of the adrenal glands is benign. Kidneys: There are no renal lesions. There is no hydronephrosis. The kidneys enhance symmetrically. Abdominal vasculature: The caliber of the abdominal aorta is normal. Major vasculature is patent. The re is moderate atherosclerotic plaque within the abdominal aorta. Bowel: The caliber and wall thickness of small and large bowel are normal. The appendix is normal. Peritoneum: There is no intraperitoneal free air or abdominal ascites. Lymphadenopathy: None. Skeletal structures: No lytic or blastic lesions are seen. IMPRESSION: 1. No acute process within the abdomen or pelvis. 2. No bowel obstruction. No bowel wall thickening. Normal appendix. ACT 112: Negative or not required by law. Electronically signed by: Prakash Ortiz M.D. 12/08/2024 2:39 PM
[2024-12-08 16:38] LABS: Appearance Urine Clear (Clear); Glucose Urine UA Negative (Negative)
--- NOTE | 2024-12-08 17:50 | History & Physical Report ---
Date of Service December 08, 2024 Assessment & Plan (1) Epigastric abdominal pain: Plan: #GERD #Celiac disease #Elevated LFT's. Mildly elevated LFTs Patient is a 64-year-old female with PMH anxiety, depression, HLD, hypothyroidism, GERD, celiac disease presented to ER with c/o abdominal pain for month and worsening depression symptoms over past 6 months. In ER afebrile, vital stable No leukocytosis K: 3.1, ma.8 T. bili: 1.1, AST: 68, ALT: 71, alk phos: 86, lipase WNL (07/06/2024 T. bili: 0.7, AST: 68, ALT: 67, alk phos: 124. 11/21/2024 T. bili: 1.0, AST: 55, ALT: 60, alk phos: 111) UA unremarkable for infection Negative Lyme disease screen, negative Anaplasma and Babesia smear, but PCR PCR pending CT abd/pelvis: The liver morphology is normal and there are no hepatic lesions. There is no intrahepatic biliary ductal dilatation. The hepatic veins and portal veins are patent. Gallbladder: Unremarkable. Spleen: Normal in size and attenuation. Pancreas: There are no pancreatic lesions. No pancreatic ductal dilatation is present. Bowel: The caliber and wall thickness of small and large bowel are normal. The appendix is normal. Peritoneum: There is no intraperitoneal free air or abdominal ascites. In ER was given 4 mg IV morphine and 4 mg Zofran Patient currently without any abdominal pain and is nontender on exam DDx: gastritis, peptic ulcer Will start with clear liquid diet and advance as tolerated. Gluten free diet Increase home Protonix from 40 mg daily to 40 mg twice daily If recurrent symptoms may consider Carafate prn. Pt currently asymptomatic so will continue to monitor May need to consider GI consult Patient may require outpatient endoscopy, further workup CBC, CMP in am 12/28/2019 EGD: Normal-appearing esophagus, stomach, examined portion of duodenum 12/28/2019 colonoscopy: Normal mucosa in entire examined colon 12/28/2019 duodenum biopsy: Duodenal mucosa with no pathological diagnosis Stomach biopsy: Slight chronic gastritis, reactive gastropathy and fundic gland polyp. Negative for H. pylori Random colon biopsy: Colonic mucosa with no pathological diagnosis (2) Acute hypokalemia: Plan: Likely secondary to decreased oral intake K: 3.1. Magnesium: 1.8 Replace and monitor (3) Major depress dis, severe: (4) Anxiety: Plan: Worsening depression symptoms Reported history of numerous medication failures in past. History inpatient Behavioral health admission for severe depression in past Outpatient follows with psychiatry, Dr. Aragon Past 6 months chronic lorazepam being tapered. Initial dose was lorazepam 1mg TID and now is at 0.5mg in AM and 1mg in PM. Will continue home Prozac and lorazepam dosing for now Denies suicidal ideations Psychiatry consult (5) Luis's thyroiditis: Plan: Abnormal TSH Today TSH: 0.05, Free T4: 1.58 09/21/2024 TSH: 0.01, free T4: 2.2. 10/24/2024 TSH: 0.04, free T4: 1.8. 11/21/2024 TSH: 0.05, free T4: 1.8 Per outpatient chart review patient has had decreased dose of levothyroxine over the past couple of months with most recent change on 11/23/24 with decrease to 75mcg daily. Will need follow up labs in 6 weeks to reassess and further medication adjustment may be required. Patient reports has outpatient referral to endocrinology but no appointment scheduled yet (6) HLD (hyperlipidemia): Plan: Continue simvastatin DVT Prophylaxis Lovenox SQ Admit med surg Full Code as per discussion with pt Follows with Dr Marcelo for routine care Pt was seen and care coordinated with Dr Gimenez. See addendum I spent a total of 80 minutes reviewing notes, outpatient records, labs, medication, coordinating, documenting and providing care for this patient excluding time spent in the performance of separately billed services and e xcluding time spent by another provider/QHP. History of Present Illness Chief Complaint: abdominal pain, depression Primary Care Provider: Amari Baer MD Patient is a 64-year-old female with PMH anxiety, depression, HLD, hypothyroidism, GERD, celiac disease presented to ER with c/o abdominal pain for month and worsening depression symptoms over past 6 months. History aided by patient's at bedside as patient very vague. Patient reports the past month having epigastric discomfort that she reports is constant but then states she isn't sure if pain is constant. States pain is non-radiating but she is unable to describe pain further. She states over a month ago started with epigastric discomfort that seemed to start in the morning after taking her medications and eating breakfast. She states then she would lay down to sleep and the pain does not awake her from sleep. She initially thought might be heartburn and tried Tums in addition to her daily Protonix without relief. Tried Pepto-Bismol a couple of times without relief. Patient wonders if she may be lactose intolerant. States after she drinks milk she will have a formed bowel movement. Denies diarrhea. Is uncertain if milk changes this current epigastric pain that she has been experiencing. She states follows gluten free diet. Has intermittent nausea, denies vomiting. Chronic intermittent constipation. Takes Metamucil intermittently. Patient reports uses NSAIDs rarely. Used 2 tablets OTC once this week. Denies melena, hematochezia. Patient reports has been on multiple psych medications in the past. She reports was doing well last year with her moods. Follows with psychiatry Dr. Aragon through telemedicine. States June 2024 they started to taper her lorazepam which was 1 mg 3 times daily. Now she is down to 0.5 mg in a.m. and 1 mg in p.m. reports seems like since lorazepam has started to be tapered has noted patient is becoming increasingly depressed. Reports increased depression systems over the past month. Patient states she feels both depressed and feels anxious. Patient states she does not feel like doing anything. reports patient has been sleeping upwards 20 hours a day. Patient states she sets an alarm to get out of bed in the morning and takes her medications. States otherwise she does not want to get out of bed. Does not have any difficulty ambulating but just does not have the "will to get up and walk around". For the past month has refused to leave the house. She is not bathing herself. Has decreased appetite and decreased oral intake. States a stressor is child moved back in with her and has 2 grandchildren living with her for the past 2 years. States last year enjoyed spending time with grandchildren and helped babysit and enjoyed social outings with them. Patient states now has no motivation to interact with grandchildren. Patient denies suicidal ideations. Reports last month fluoxetine was increased from 60 mg to 80 mg daily. Reports has required inpatient behavioral health admissions in the past secondary to depression. Denies Tylenol use. She states sometimes feels like different parts of her body are hot (sometimes a shoulder or part of chest or extremity), however does not record any fevers. states sometimes he notices her hands seem shaky when holding objects but here in ER seems tremors have resolved. Denies diaphoresis, MUKHERJEE, dizziness, syncope, vision changes, neck pain, CP, SOB, palpitations, cough, sore throat, rhinorrhea, paresthesias, extremity edema, rashes, dysuria, hematuria. Allergies Allergy/AdvReac Type Severity Reaction Status Date / Time gluten Allergy Intermediate CELIAC Verified 09/26/22 20:25 DISEASE metronidazole Allergy Intermediate RASH Verified 09/26/22 20:25 Home Medications Medication Instructions Recorded Confirmed Type simvastatin 20 mg tablet 20 mg PO HS #30 tabs 03/07/19 12/08/24 History fexofenadine 180 mg tablet 180 mg PO DAILY 12/25/22 12/08/24 History L.acid,casei,plant,saliv-B.anim 10 1 cap PO DAILY 12/08/24 12/08/24 History billion cell (2 billion ea) capsule cholecalciferol (vitamin D3) 1,250 50,000 unit PO MONTHLY 12/08/24 12/08/24 History mcg (50,000 unit) capsule fluoxetine 20 mg capsule 40 mg PO DAILY 12/08/24 12/08/24 History fluoxetine 40 mg capsule 40 mg PO DAILY 12/08/24 12/08/24 History levothyroxine 75 mcg tablet 75 mcg PO DAILY 12/08/24 12/08/24 History lorazepam 1 mg tablet 0.5 mg PO QAM 12/08/24 12/08/24 History lorazepam 1 mg tablet 1 mg PO QPM 12/08/24 12/08/24 History ondansetron 4 mg disintegrating 4 mg PO Q8H PRN Nausea 12/08/24 12/08/24 History tablet pantoprazole 40 mg tablet,delayed 40 mg PO DAILY 12/08/24 12/08/24 History release Past Med/Surg History Problem List Epigastric abdominal pain Transaminitis (Acute) Acute hypokalemia (Acute) Lethargic (Acute) Abdominal pain, acute, epigastric (Acute) Recurrent severe major depressive disorder with anxiety Hypotension Major depress dis, severe Hyponatremia (Acute) GERD (gastroesophageal reflux disease) HLD (hyperlipidemia) Celiac disease Osteoporosis (Chronic) Vitamin D deficiency (Chronic) Secondary hyperparathyroidism (Chronic) Adult celiac disease (Chronic) Luis's thyroiditis (Chronic) Psoriasis (Chronic) Medical History Weight loss Depression Anxiety Generalized weakness Adult failure to thrive Nausea History of COVID-19 Hypokalemia Hyponatremia GERD (gastroesophageal reflux disease) COVID-19 Fatigue Hypothyroidism Vitamin B12 deficiency Surgical History No pertinent past surgical history Family History Other Family history non-contributory Social History Smoking Status: Current some day smoker Tobacco Type: Cigarettes Second Hand Exposure: No; Do You Dip or Chew Tobacco: No; Tobacco Cessation Education Requested by Patient: No Hx Alcohol Use: No Hx Substance Use: No Preferred Language: Macedonian Communication Ability: Effective Grain Sacker Required: No Beliefs That Will Affect Care: None Current Living Situation: Spouse and Family Feels Safe at Home: Yes Safety Concerns: Feels Safe At This Time Gender Identity: Female Assistive Devices: Denture - Upper and Glasses Review of Systems Review of Systems: All systems reviewed & are unremarkable except as noted in HPI & below Physical Exam Physical Exam: General: no distress, WDWN Head: normocephalic, atraumatic Eyes: conjunctiva non-injected, anicteric ENT: normal inspection external ears, nose, mucous membranes moist Neck: supple, trachea midline Lungs: clear, no respiratory distress, no wheezing/rhonchi/rales CV: RRR, no murmur, no pretibial edema Abd: normal BS, soft, non-tender to palpation at this time Ext: no cyanosis, no calf tenderness Neuro: A&O x 3, no focal deficits noted, no tremors noted, +flat affect Skin: warm, dry Results & Data Results & Data Vital Signs (Past 12 Hours) Vital Signs Temp Pulse Pulse Resp BP BP Pulse Ox 12/08/24 15:00 63 18 126/73 99 12/08/24 14:30 65 18 113/66 100 12/08/24 14:00 61 18 133/62 99 12/08/24 14:00 62 12/08/24 12:23 36.7 C 87 18 93/64 L 99 O2 Del Method O2 Flow Rate 12/08/24 15:00 Room Air 0 12/08/24 14:30 Room Air 12/08/24 14:00 Room Air 12/08/24 14:00 12/08/24 12:23 Room Air Laboratory Results Short CBC 12/08/24 Range/Units 13:03 WBC 10.38 (4.8-10.8) K/ul Hgb 12.9 (12.0-16.0) g/dl Hct 38.7 (37.0-47.0) % Plt Count 300 (130-400) K/uL BMP 12/08/24 13:03 Sodium 137 Potassium 3.1 L Chloride 101 Carbon Dioxide 28 BUN 11 Creatinine 0.81 Glucose 148 H Calcium 9.2 Liver Function 12/08/24 Range/Units 13:03 Total Bilirubin 1.1 H (0.2-1.0) mg/dl AST 68 H (13-39) U/L ALT 71 H (7-52) U/L Alkaline Phosphatase 86 (34-104) U/L Albumin 4.0 (3.4-5.0) gm/dl Urine 12/08/24 Range/Units 15:45 Urine Color Yellow Urine Appearance Clear (Clear) Urine pH 6.0 (4.5-7.5) Ur Specific [place] > 1.045 H (1.000-1.030) Urine Protein Negative (Negative) Urine Glucose (UA) Negative (Negative) Diagnostic Findings Abdomen/Pelvis CT 12/08/24 12:51 CT SCAN OF THE ABDOMEN AND PELVIS WITH IV CONTRAST CLINICAL HISTORY: Epigastric and right upper quadrant pain. COMPARISON STUDY: None. TECHNIQUE: Following the IV administration of 94 cc of Optiray 320, CT scan of the abdomen and pelvis is performed from the lung bases to the proximal femora. Images are reviewed in the axial, sagittal, and coronal planes. IV contrast was administered without complication. A dose lowering technique was utilized adhering to the principles of ALARA. CT DOSE: 1213.87 mGy.cm FINDINGS: Lung bases: The size of the heart is normal. There is no pericardial effusion. The lung bases are clear. Liver: The liver morphology is normal and there are no hepatic lesions. There is no intrahepatic biliary ductal dilatation. The hepatic veins and portal veins are patent. Gallbladder: Unremarkable. Spleen: Normal in size and attenuation. Pancreas: There are no pancreatic lesions. No pancreatic ductal dilatation is present. Adrenal glands: Thickening of the adrenal glands is benign. Kidneys: There are no renal lesions. There is no hydronephrosis. The kidneys enhance symmetrically. Abdominal vasculature: The caliber of the abdominal aorta is normal. Major vasculature is patent. There is moderate atherosclerotic plaque within the abdominal aorta. Bowel: The caliber and wall thickness of small and large bowel are normal. The appendix is normal. Peritoneum: There is no intraperitoneal free air or abdominal ascites. Lymphadenopathy: None. Skeletal structures: No lytic or blastic lesions are seen. IMPRESSION: 1. No acute process within the abdomen or pelvis. 2. No bowel obstruction. No bowel wall thickening. Normal appendix. ACT 112: Negative or not required by law. Electronically signed by: Prakash Ortiz M.D. 12/08/2024 2:39 PM ECG Additional Comments: NSR, rate 70. no significant ST changes noted per my interpretation Supervising Physician Co-Signing Physician Notes Attending addendum: The patient was seen and examined in emergency room She has been very anxious and also depressed She complains to have epigastric pain for a while with nausea but no vomiting and no history of melena or hematemesis Using naproxen occasionally and took 2 tablets yesterday On examination Lying in bed without any acute distress Anxious but hemodynamically stable and is afebrile Chest was clear to auscultation bilaterally HeartS1-S2 regular Abdomenmildly tender epigastrium without guarding and no rigidity and bowel sound present Extremitiesno edema Her labs and imaging studies reviewed Assessment and plan Has significant anxiety/depression-psychiatric medications has been ongoing as an outpatient Will advise psychiatric evaluation in the hospital Epigastric painongoing for a while we will try IV Protonix and twice daily thereafter May need GI evaluation while in the hospital Agree with assessment and plan as outlined above by Margot Biggs PA-c and take the full responsibility of care in the hospital Dr Juan J Gimenez
[2024-12-08] MEDS: FAMOTIDINE 20MG IV PUSH 20 MG/5 ML SYR IV STA (19:41)
[2024-12-08] MEDS: POTASSIUM CHLORIDE CRTAB 20 MEQ TABCR PO STA (19:41)
[2024-12-08] MEDS ORDERED: MAGNESIUM HYDROXIDE SUSP 30 ML UDC PO PRN (21:51)
[2024-12-08] MEDS ORDERED: POLYETHYLENE (MIRALAX) 17 GM PACK PO PRN (21:51)
[2024-12-08] MEDS ORDERED: ALUMINUM/MAGNESIUM SUSP 30 ML UDC PO PRN (21:51)
[2024-12-08] MEDS ORDERED: ACETAMINOPHEN 325 MG TAB PO PRN (21:51)
[2024-12-08] MEDS: ENOXAPARIN INJ 40 MG/0.4 ML SYR SQ SCH (22:51)
[2024-12-08] MEDS: LORazepam 1 MG TAB PO SCH (22:51)
[2024-12-08] MEDS: SIMVASTATIN 20 MG TAB PO SCH (22:51)
[2024-12-09] MEDS: LEVOTHYROXINE SODIUM 75 MCG TABLET PO SCH (05:37)
[2024-12-09 06:14] LABS: Hematocrit (blood only) 38.0 % (37.0-47.0); Hemoglobin 12.3 g/dl (12.0-16.0); Mean Corpuscular Hemoglobin 29.2 pg (25.0-34.0); Mean Corpuscular Volume 90.3 fL (80.0-100.0); Platelet Count 274 K/uL (130-400); RDW Standard Deviation 48.6 fL (36.4-46.3); Red Blood Count 4.21 M/uL (4.20-5.40); White Blood Count 8.17 K/ul (4.8-10.8)
[2024-12-09 06:35] LABS: Alanine Aminotransferase 59.0 U/L (7-52); Albumin Globulin Ratio 1.4 (0.9-2); Alkaline Phosphatase 75.0 U/L (34-104); Anion Gap 6.0 (3-11); Bilirubin,Total 1.0 mg/dl (0.2-1.0); Blood Urea Nitrogen 8.0 mg/dl (6-23); Calcium 8.7 mg/dl (8.6-10.3); Carbon Dioxide 26.0 mmol/L (21-32); Chloride 106.0 mmol/L (98-107); Creatinine Clr Calc Pharmacy 64.7 ml/min; Globulin 2.5 gm/dl (2.5-4.0); Glucose 96.0 mg/dl (70-99(Fasting)); Magnesium 1.8 mg/dl (1.7-2.4); Potassium 3.9 mmol/L (3.5-5.1); Sodium 138.0 mmol/L (136-145); Total Protein 6.1 gm/dl (6.0-8.3)
[2024-12-09] MEDS: FEXOFENADINE HCL 180 MG TAB PO SCH (09:03)
[2024-12-09] MEDS: LORazepam 0.5 MG TAB PO SCH (09:04)
[2024-12-09] MEDS: PROMETHAZINE 12.5 MG/50.5 ML BAG IV PRN (10:36)
--- NOTE | 2024-12-09 13:59 | Hospitalist Progress Note ---
Date of Service December 09, 2024 Assessment & Plan (1) Epigastric abdominal pain: Plan: #GERD #Celiac disease #Elevated LFT's. Mildly elevated LFTs Patient is a 64-year-old female with PMH anxiety, depression, HLD, hypothyroidism, GERD, celiac disease presented to ER with c/o abdominal pain for month and worsening depression symptoms over past 6 months. In ER afebrile, vital stable No leukocytosis UA unremarkable for infection Negative Lyme disease screen, negative Anaplasma and Babesia smear, CT abd/pelvis: The liver morphology is normal and there are no hepatic lesions. There is no intrahepatic biliary ductal dilatation. The hepatic veins and portal veins are patent. Gallbladder: Unremarkable. Spleen: Normal in size and attenuation. Pancreas: There are no pancreatic lesions. No pancreatic ductal dilatation is present. Bowel: The caliber and wall thickness of small and large bowel are normal. The appendix is normal. Peritoneum: There is no intraperitoneal free air or abdominal ascites. 12/28/2019 EGD: Normal-appearing esophagus, stomach, examined portion of duodenum 12/28/2019 colonoscopy: Normal mucosa in entire examined colon 12/28/2019 duodenum biopsy: Duodenal mucosa with no pathological diagnosis Stomach biopsy: Slight chronic gastritis, reactive gastropathy and fundic gland polyp. Negative for H. pylori Random colon biopsy: Colonic mucosa with no pathological diagnosis Pain likely related to GERD; Protonix increased to twice daily Continue to monitor for recurrence of nausea, abdominal pain Will need GI evaluation as outpatient (2) Acute hypokalemia: Plan: Repelted (3) Major depress dis, severe: (4) Anxiety: Plan: Worsening depression symptoms Reported history of numerous medication failures in past. History inpatient Behavioral health admission for severe depression in past Outpatient follows with psychiatry, Dr. Aragon Past 6 months chronic lorazepam being tapered. Initial dose was lorazepam 1mg TID and now is at 0.5mg in AM and 1mg in PM. Will continue home Prozac and lorazepam dosing for now Denies suicidal ideations Psychiatry consult (5) Luis's thyroiditis: Plan: Abnormal TSH Today TSH: 0.05, Free T4: 1.58 09/21/2024 TSH: 0.01, free T4: 2.2. 10/24/2024 TSH: 0.04, free T4: 1.8. 11/21/2024 TSH: 0.05, free T4: 1.8 Per outpatient chart review patient has had decreased dose of levothyroxine over the past couple of months with most recent change on 11/23/24 with decrease to 75mcg daily. Will need follow up labs in 6 weeks to reassess and further medication adjustment may be required. Patient reports has outpatient referral to endocrinology but no appointment scheduled yet (6) HLD (hyperlipidemia): Plan: Continue simvastatin DVT Prophylaxis Lovenox SQ Admit med surg Full Code as per discussion with pt Follows with Dr Marcelo for routine care Please note the above document was generated using voice recognition software. It may contain grammatical, syntax or spelling errors. Any formal questions or concerns about the content, text or information contained within the body of this dictation should be directly addressed to the provider for clarification Admission and Anticipated Discharge Date Admission Date: December 08, 2024 Subjective Patient seen and examined at bedside. She reports nausea after drinking tea in a.m. Denies any abdominal pain at this time. Review of Systems Review of Systems: All systems reviewed & are unremarkable except as noted in Subjective Physical Exam Physical Exam: Constitutional: WD/WN, vitals as above, NAD, sitting up in bed, pleasant, conversing easily Respiratory: normal respiratory effort, lungs clear to auscultation, no wheeze, rales, rhonchi. Normal insp/exp effort, no accessory muscle use Cardiovascular: RRR, no murmur, no edema Vessels: no JVD or carotid bruit Chest: normal inspection of chest Abdomen: normal bowel sounds, soft, nontender, no hepatosplenomegaly Musculoskeletal: no cyanosis or clubbing, extremities motor strength 5/5 Skin: no rashes, warm and dry normal turgor Neurologic: PERRL, EOMI, accommodation nl, no face palsy, no dysarthria CN's II- XI intact bilaterally and moves all extremities Psychiatric: A+Ox3, euthymic affect Results & Data Results & Data Vital Signs (Past 12 Hours) Vital Signs Temp Pulse Resp BP Pulse Ox O2 Del Method 12/09/24 06:55 36.6 C 60 18 111/51 L 94 Room Air
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
--- NOTE | 2024-12-10 10:55 | Discharge Summary ---
Date of Service December 10, 2024 Admission HPI Per Admitting Provider Patient is a 64-year-old female with PMH anxiety, depression, HLD, hypothyroidism, GERD, celiac disease presented to ER with c/o abdominal pain for month and worsening depression symptoms over past 6 months. History aided by patient's at bedside as patient very vague. Patient reports the past month having epigastric discomfort that she reports is constant but then states she isn't sure if pain is constant. States pain is non-radiating but she is unable to describe pain further. She states over a month ago started with epigastric discomfort that seemed to start in the morning after taking her medications and eating breakfast. She states then she would lay down to sleep and the pain does not awake her from sleep. She initially thought might be heartburn and tried Tums in addition to her daily Protonix without relief. Tried Pepto-Bismol a couple of times without relief. Patient wonders if she may be lactose intolerant. States after she drinks milk she will have a formed bowel movement. Denies diarrhea. Is uncertain if milk changes this current epigastric pain that she has been experiencing. She states follows gluten free diet. Has intermittent nausea, denies vomiting. Chronic intermittent const ipation. Takes Metamucil intermittently. Patient reports uses NSAIDs rarely. Used 2 tablets OTC once this week. Denies melena, hematochezia. Patient reports has been on multiple psych medications in the past. She reports was doing well last year with her moods. Follows with psychiatry Dr. Aragon through telemedicine. States June 2024 they started to taper her lorazepam which was 1 mg 3 times daily. Now she is down to 0.5 mg in a.m. and 1 mg in p.m. reports seems like since lorazepam has started to be tapered has noted patient is becoming increasingly depressed. Reports increased depression systems over the past month. Patient states she feels both depressed and feels anxious. Patient states she does not feel like doing anything. reports patient has been sleeping upwards 20 hours a day. Patient states she sets an alarm to get out of bed in the morning and takes her medications. States otherwise she does not want to get out of bed. Does not have any difficulty ambulating but just does not have the "will to get up and walk around". For the past month has refused to leave the house. She is not bathing herself. Has decreased appetite and decreased oral intake. States a stressor is child moved back in with her and has 2 grandchildren living with her for the past 2 years. States last year enjoyed spending time with grandchildren and helped babysit and enjoyed social outings with them. Patient states now has no motivation to interact with grandchildren. Patient denies suicidal ideations. Reports last month fluoxetine was increased from 60 mg to 80 mg daily. Reports has required inpatient behavioral health admissions in the past secondary to depression. Denies Tylenol use. She states sometimes feels like different parts of her body are hot (sometimes a shoulder or part of chest or extremity), however does not record any fevers. states sometimes he notices her hands seem shaky when holding objects but here in ER seems tremors have resolved. Denies diaphoresis, MUKHERJEE, dizziness, syncope, vision changes, neck pain, CP, SOB, palpitations, cough, sore throat, rhinorrhea, paresthesias, extremity edema, rashes, dysuria, hematuria. Admission Exam Per Admitting Provider General: no distress, WDWN Head: normocephalic, atraumatic Eyes: conjunctiva non-injected, anicteric ENT: normal inspection external ears, nose, mucous membranes moist Neck: supple, trachea midline Lungs: clear, no respiratory distress, no wheezing/rhonchi/rales CV: RRR, no murmur, no pretibial edema Abd: normal BS, soft, non-tender to palpation at this time Ext: no cyanosis, no calf tenderness Neuro: A&O x 3, no focal deficits noted, no tremors noted, +flat affect Skin: warm, dry Principal Diagnosis severe MDD Discharge Exam Constitutional: WD/WN, vitals as above, NAD, sitting up in bed, pleasant, conversing easily Respiratory: normal respiratory effort, lungs clear to auscultation, no wheeze, rales, rhonchi. Normal insp/exp effort, no accessory muscle use Cardiovascular: RRR, no murmur, no edema Vessels: no JVD or carotid bruit Chest: normal inspection of chest Abdomen: normal bowel sounds, soft, nontender, no hepatosplenomegaly Musculoskeletal: no cyanosis or clubbing, extremities motor strength 5/5 Skin: no rashes, warm and dry normal turgor Neurologic: PERRL, EOMI, accommodation nl, no face palsy, no dysarthria CN's II- XI intact bilaterally and moves all extremities Psychiatric: A+Ox3, euthymic affect Discharge Data Allergies Allergy/AdvReac Type Severity Reaction Status Date / Time gluten Allergy Intermediate CELIAC Verified 09/26/22 20:25 DISEASE metronidazole Allergy Intermediate RASH Verified 09/26/22 20:25 Consultations 12/08/24 17:25 ED Decision to Admit Stat 12/08/24 21:51 Consult Psychiatry Routine Ordered Studies 12/08/24 12:51 CT Abd and Pelvis [CT abd pelvis IV con only] Stat Hospital Course (1) Epigastric abdominal pain: (2) Acute hypokalemia: (3) Major depress dis, severe: (4) Anxiety: (5) Luis's thyroiditis: (6) HLD (hyperlipidemia): Plan Patient is a 64-year-old female with PMH anxiety, depression, HLD, hypothyroidis m, GERD, celiac disease presented to ER with c/o abdominal pain for month and worsening depression symptoms over past 6 months. In ER afebrile, vital stable No leukocytosis UA unremarkable for infection Negative Lyme disease screen, negative Anaplasma and Babesia smear, CT abd/pelvis: The liver morphology is normal and there are no hepatic lesions. There is no intrahepatic biliary ductal dilatation. The hepatic veins and portal veins are patent. Gallbladder: Unremarkable. Spleen: Normal in size and attenuation. Pancreas: There are no pancreatic lesions. No pancreatic ductal dilatation is present. Bowel: The caliber and wall thickness of small and large bowel are normal. The appendix is normal. Peritoneum: There is no intraperitoneal free air or abdominal ascites. 12/28/2019 EGD: Normal-appearing esophagus, stomach, examined portion of duodenum 12/28/2019 colonoscopy: Normal mucosa in entire examined colon 12/28/2019 duodenum biopsy: Duodenal mucosa with no pathological diagnosis Stomach biopsy: Slight chronic gastritis, reactive gastropathy and fundic gland polyp. Negative for H. pylori Random colon biopsy: Colonic mucosa with no pathological diagnosis During the hospitalization, patient's home Protonix was increased to twice a day which helped improved abdominal pain. Patient was also started on Zyprexa for severe MDD After evaluation by psychiatry; nausea/vomiting resolved as well and patient was tolerating normal diet. At the time of the discharge, Protonix was increased to twice a day and a new prescription for Zyprexa 5 mg at this was sent to the pharmacy. Please note the above document was generated using voice recognition software. It may contain grammatical, syntax or spelling errors. Any formal questions or concerns about the content, text or information contained within the body of this dictation should be directly addressed to the provider for clarification Total Time Total Time Spent Total Time Spent (In Minutes): 45 Total Time Includes: Examination of the Patient, Discharge Planning, Medication Reconciliation, Communication With Other Providers and Other Discharge Plan Discharge Items Patient Disposition: Home - Self-Care Reason For Visit: ABD PAIN Discharge Diagnosis: Severe Depression Condition on Discharge: Fair Activity: Resume your previous activity Non-emergency contact: Primary Care Provider Call non-emergency contact if: you have any medication questions and your symptoms worsen Follow-up/Referrals: Amari Baer MD [Primary Care Provider] - Diet: Regular Addtl Attending Provider Instructions: You are admitted for symptoms with nausea vomiting and low mood. You underwent evaluation by psychiatry; recommended addition of zyprexa 5mg at night. Increase protonix to twice a day. Pending Studies at Discharge: No Stand-Alone Forms: My [employer], Smoking Cessation Medications and DC Order Prescriptions: New olanzapine 5 mg Tablet 5 mg PO HS 30 Days Qty: 30 0RF Continued simvastatin 20 mg tablet 20 mg PO HS Qty: 30 fexofenadine 180 mg Tablet 180 mg PO DAILY Patient Comments: 12/06- OTC unable to verify fluoxetine 40 mg capsule 40 mg PO DAILY Rx Instructions: take with 20mg for 60mg dose levothyroxine 75 mcg tablet 75 mcg PO DAILY lorazepam 1 mg tablet 0.5 mg PO QAM ondansetron 4 mg tablet,disintegrating 4 mg PO Q8H PRN (Reason: Nausea) fluoxetine 20 mg capsule 40 mg PO DAILY Rx Instructions: take with 40 mg for 80mg dose cholecalciferol (vitamin D3) 1,250 mcg (50,000 unit) capsule 50,000 unit PO MONTHLY Rx Instructions: Takes on first day of the month lorazepam 1 mg tablet 1 mg PO QPM Probiotic Formula 10 billion cell (2 billion ea) Capsule 1 cap PO DAILY Changed pantoprazole 40 mg tablet,delayed release (DR/EC) 40 mg PO BID Qty: 60 0RF Admission Data Admit Date/Time: 12/08/24 18:40 Attending Provider: David Gonzalez Admit Provider: David Gimenez Primary Care Provider: Amari Baer Other Providers: David Gimenez; Nicolette Crews; Chilango Tohmas; Tamica Narvaez; Marlen Mendieta; Naresh Macedo; Chaitanya Antunez; Kedar Recinos
--- NOTE | 2024-12-10 15:06 | Electrocardiogram Report ---
Test Reason : Blood Pressure : */* mmHG Vent. Rate : 70 BPM Atrial Rate : 70 BPM P-R Int : 156 ms QRS Dur : 78 ms QT Int : 442 ms P-R-T Axes : 15 -14 44 degrees QTcB Int : 477 ms Normal sinus rhythm Normal ECG When compared with ECG of 18-Jan-2021 21:26, No significant change was found Confirmed by Boogie Garrett ([id number]) on 12/10/2024 3:05:46 PM Referred By: REFERRED SELF Confirmed By: Booige Garrett
[2024-12-10 15:23] VITALS: BP 110/73; PULSE 73; RESP 16; TEMP 98.2; O2SAT 99
== END 2024-12-10 17:51 | disposition home or self-care (01) ==
LOC: ED 12:10 → 3N 12:10 → SUATTDRO 18:40 → 3N 21:30